=== PATIENT | male | born 1940 | race African-American/Black ===

== ENCOUNTER 2019-12-23 10:26 | Outpatient (REF) | payer MEDICARE, OTHER, SELFPAY ==
[2019-12-23 12:23] LABS: Glucose Urine UA NEG (NEG); Leukocyte Esterase Urine NEG (NEG); Nitrite Urine NEG (NEG); Urine Blood NEG (NEG); Urine Ketones NEG (NEG); Urine Protein NEG (NEG-TRACE)
[2019-12-23 12:26] LABS: Appearance Urine CLEAR; Color Urine YELLOW
[2019-12-23 12:40] LABS: Blood Urea Nitrogen 17 mg/dL (9-16); Estimated Glomerular Filt Rate 42; Glucose Fasting 207 mg/dL (60-99)
[2019-12-23 13:32] LABS: Estimated Average Glucose 160 mg/dL; Hemoglobin A1c % 7.2 %
== END 2019-12-23 10:27 | disposition home or self-care (01) ==
LOC: HO.LAB 10:26
PROVIDERS: PCP Internal Medicine; Visit Provider Internal Medicine Endocrinology, Diabetes & Metabolism
DX: I73.9 Peripheral vascular disease, unspecified (principal); E11.9 Type 2 diabetes mellitus without complications
CPT/HCPCS: 81003; 82565; 82947; 83036; 84520

== ENCOUNTER 2023-01-20 05:28 | Inpatient (IN) | payer MEDICARE, OTHER, SELFPAY ==
[2023-01-20] VITALS (11 sets, daily range): BP systolic 98–156; BP diastolic 50–88; PULSE 72–100; RESP 14–18; TEMP 36.5–37.1; O2SAT 97–100; BMI 24.8
--- NOTE | 2023-01-20 | ECG_ITS ---
Test Reason : SOB Blood Pressure : / mmHG Vent. Rate : 076 BPM Atrial Rate : 076 BPM P-R Int : 134 ms QRS Dur : 092 ms QT Int : 384 ms P-R-T Axes : 053 -08 162 degrees QTc Int : 432 ms Normal sinus rhythm Minimal voltage criteria for LVH, may be normal variant ( R in aVL ) T wave abnormality, consider inferolateral ischemia Abnormal ECG When compared with ECG of 11-FEB-2014 15:02, T wave inversion now evident in Inferior leads T wave inversion now evident in Anterolateral leads Heart rate has decreased Referred By: Generic ED Physician Electronically Signed By:SNEHA HARRINGTON MD
--- NOTE | ~2023-01-20 | XR_ITS ---
EXAMINATION: XR CHEST CLINICAL INFORMATION: Shortness of breath. COMPARISON: None available. TECHNIQUE: Frontal view of the chest was obtained. FINDINGS: No significant abnormality is noted involving the heart, lungs, mediastinum, bony thorax or soft tissues. XR/XR chest 1V IMPRESSION: No active cardiopulmonary disease.
[2023-01-20 05:56] LABS: MANUAL DIFF FLAG NO
[2023-01-20 05:58] LABS: Basophils Absolute Auto 0.1 X10*3/uL (0.0-0.2); Basophils Percent Auto 1.1 % (0-2); Eosinophils Absolute Auto 0.2 X10*3/uL (0.0-0.4); Hematocrit 21.1 % (42.0-52.0); Hemoglobin 7.2 g/dl (14.0-18.0); Imm Gran Abs Auto 0.02 X10*3/uL (0.00-0.03); Imm Gran Pct Auto 0.4 % (0.0-0.4); Lymphocytes Percent Auto 35.5 % (20-40); Mean Corpuscular HGB Conc 34.1 g/dl (31.0-36.0); Mean Corpuscular Hemoglobin 26.3 pg (27.0-33.0); Mean Platelet Volume 9.7 fL (9.4-12.4); Monocytes Absolute Auto 0.6 X10*3/uL (0.1-1.2); Monocytes Percent Auto 10.3 % (2-11); Neutrophils Absolute Auto 2.8 x10*3/uL (2.0-8.3); Neutrophils Percent Auto 49.7 % (45-73); Platelet Count 155 X10*3/uL (160-400); Red Blood Count 2.74 X10*6/uL (4.60-5.80); Red Cell Distribution Width 15.4 % (11.0-16.0); White Blood Count 5.6 X10*3/uL (4.8-10.8)
[2023-01-20 06:11] LABS: Alanine Aminotransferase 11 U/L (0-40); Alkaline Phosphatase 42 U/L (39-117); Anion Gap 13 (12-20); Aspartate Amino Transferase 21 U/L (5-37); Bilirubin Total 0.2 mg/dL (0.0-1.0); Blood Urea Nitrogen 23 mg/dL (9-16); Carbon Dioxide 19 mmol/L (22-29); Chloride 111 mmol/L (96-108); Creatinine Clr Calc Pharmacy 36.9; Estimated Glomerular Filt Rate 37; Glucose Random 89 mg/dL (60-115); Potassium 4.2 mmol/L (3.3-5.1); Prothrombin Time 12.1 SEC (11.1-13.3); Sodium 139 mmol/L (135-145); Total Protein 7.1 g/dL (6.5-8.0)
[2023-01-20 06:14] LABS: Partial Thromboplastin Time 25.9 SEC (26.0-36.4)
[2023-01-20 06:17] LABS: Troponin-I High Sensitivity 13.7 ng/L (<3.5-35.0)
--- OUTSIDE RECORDS SUMMARY | 2023-01-20 06:36 | XMS_ITS | Continuity of Care Document ---
Author Name Unknown Organization [facility] ter Address [address] [place] [id number] Care Team Providers Care Enterprise Architect Name Role Phone Fany Story MD Primary Care Phys[place] [facility] [place] - 04/15/[address] [address] Discharge Disposition: A-D/C Home Attending Physician: Sandie Castellanos MD Admitting Physician: Sandie Castellanos MD Referring Physician: Sandie Castellanos MD Allergies, Adverse Reactions, Alerts Substance Reaction Severity Status penicillin Active Medications Albuterol (Eqv-ProAir HFA) 90 mcg/inh inhalation aerosol INHALE 2 PUFFS INTO THE LUNGS EVERY 4 HOURS NEEDED FOR COUGH OR WHEEZING Start Date: 04/11/22 Status: Ordered allopurinol 100 mg oral tablet TAKE 1 TABLET BY MOUTH 2 TIMES DAILY Start Date: 04/11/22 Status: Ordered amLODIPine 5 mg oral tablet 5 mg, Tablet, By Mouth, 04/15/22 9:00:00 EST Start Date: 04/15/22 Stop Date: 04/15/22 Status: Completed amLODIPine 5 mg oral tablet TAKE 1 TABLET BY MOUTH DAILY Start Date: 04/11/22 Status: Ordered aspirin 81 mg oral delayed release tablet 81 mg, 1, tablet, By Mouth, Daily, # 90 tablet, Refills 0, Maintenance, 04/11/22 7:55:00 EST, Partial fill upon patient request if the prescription is for a schedule II opioid drug. Start Date: 04/11/22 Status: Ordered glipiZIDE 2.5 mg oral tablet, extended release TAKE 1 TABLET BY MOUTH DAILY Start Date: 04/11/22 Status: Ordered isosorbide mononitrate 60 mg oral tablet, extended release 1 tablet = 60 mg, By Mouth, Daily in AM, # 90 tablet, 0 Refills, Maintenance, 04/11/22 16:40:00 EST, ER Tablet, [facility], Partial fill upon patient request if the prescription is for a schedule II opioid drug., 185, cm, 04/11/22 8:02:0... Start Date: 04/11/22 Status: Ordered lisinopril 20 mg oral tablet 20 mg, 1, tablet, By Mouth, Daily, # 30 tablet, Refills 0, Maintenance, 04/14/22 8:32:00 EST, Partial fill upon patient request if the prescription is for a schedule II opioid drug. Start Date: 04/14/22 Status: Ordered prasugrel 10 mg oral tablet 1 tablet = 10 mg, By Mouth, Daily, # 90 tablet, 2 Refills, Maintenance, 04/15/22 9:52:00 EST, [facility], Partial fill upon patient request if the prescription is for a schedule II opioid drug., 185, cm, 04/15/22 8:06:00 EST, Height, 82,... 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 cancelled CT scan and any future TB clinic appts. letter sent to referring source. 2Pt started 600mg Rifampin therapy on 02/06/18. Vital Signs Most recent to oldest [Reference Range]: 1 2 3 Height 185 cm (04/15/22 8:06 AM) 185 cm (04/15/22 2:08 AM) 185 cm (04/14/22 7:31 PM) Weight 82.4 kg (04/14/22 4:00 PM) 85 kg (04/14/22 8:00 AM) 85 kg (04/14/22 8:00 AM) Oxygen Saturation [94-100 %] 98 % (04/15/22 8:06 AM) 100 % (04/15/22 2:08 AM) 100 % (04/14/22 7:31 PM) Pulse Rate [55-90 bpm] 86 bpm (04/15/22 8:06 AM) 80 bpm (04/15/22 2:08 AM) 76 bpm (04/14/22 7:31 PM) Body Mass Index [18.5-24.99 kg/m2] 24.08 kg/m2 (04/14/22 4:00 PM) 24.84 kg/m2 (04/14/22 8:00 AM) Blood Pressure [90-138/55-84 mm Hg] 123/59mm Hg (04/15/22 9:38 AM) 123/59mm Hg (04/15/22 8:06 AM) 122/59mm Hg (04/15/22 2:08 AM) Respiratory Rate [16-30 br/min] 18 br/min (04/15/22 8:06 AM) 20 br/min (04/15/22 2:08 AM) 20 br/min (04/14/22 7:31 PM) Temperature [96.8-100.4 DegF] 98.4 DegF (04/15/22 8:06 AM) 97.3 DegF (04/15/22 2:08 AM) 97.8 DegF (04/14/22 7:31 PM) Mode of Delivery (Oxygen) Room air (04/15/22 8:06 AM) Room air (04/15/22 2:08 AM) Room air (04/14/22 7:31 PM) Blood pressure sites Arm, right (04/15/22 8:06 AM) Arm, right (04/15/22 2:08 AM) Arm, left (04/14/22 7:31 PM) Temperature Route Oral (04/15/22 8:06 AM) Temporal (04/15/22 2:08 AM) Temporal (04/14/22 7:31 PM) Dry Weight 82 kg (04/14/22 4:00 PM) 85 kg (04/14/22 8:00 AM) 85 kg (04/14/22 8:00 AM) Weight Obtained Via Bed scale (04/14/22 4:00 PM) Standing scale (04/14/22 8:00 AM) Standing scale (04/14/22 8:00 AM) Dry Weight Obtained Via Standing scale (04/14/22 8:00 AM) Standing scale (04/14/22 8:00 AM) Sensory deficits None (04/14/22 4:00 PM) Note * Event Display: Hemodynamic Procedure Report Authored Date: * Riccardo Garza RN: PERFORM Event Display: Discharge/Transfer Note Hospital Authored Date: [id number] Nursing Discharge Note Entered On: 04/15/2022 14:49 EST Performed On: 04/15/2022 14:30 EST by Riccardo Garza RN Nursing Discharge Note 2 Discharge Time : 04/15/2022 14:30 EST Discharge Level of Care at Discharge : Home/[facility] Patient Left Unit Via : Wheelchair Patient Accompanied Off Unit with : Other: nursing staff DC Instructions Provided & Signed by Pt : Yes Patient Understands D/C Instructions : Yes Patient Instructions Discharge Signed : Yes Discharge Comments : see discharge instructions; pt has script for blood draw 04/17, see hospital discharge summary - pt to see PMD this week(will phone for nai't) Did Pt have Specialty Bed or Wound Vac : No Riccardo Garza RN - 04/15/2022 14:47 EST * Hermes Kinney MD: PERFORM Event Display: Discharge/Transfer Note Hospital Authored Date: [id number] Patient: ??CLAUDETTE HOLLINS ? Age:??81 Years?Sex:??Male?:??1940?? Patient Information Discharge Location: Primary Care Physician: Fany Story MD Admit Date/Time: 04/14/22 07:26 Discharge Disposition Discharge Disposition: ?? Discharge Diagnosis ??s/p complex PCI of LAD _ Discharge Medications Albuterol (Albuterol (Eqv-ProAir HFA) 90 mcg/inh inhalation aerosol)?INHALE 2 PUFFS INTO THE LUNGS EVERY 4 HOURS NEEDED FOR COUGH OR WHEEZING Allopurinol (allopurinol 100 mg oral tablet)?TAKE 1 TABLET BY MOUTH 2 TIMES DAILY Amlodipine (amLODIPine 5 mg oral tablet)?TAKE 1 TABLET BY MOUTH DAILY Aspirin (aspirin 81 mg oral delayed release tablet)?81?Milligram?1?tablet?By Mouth?Daily GlipiZIDE (glipiZIDE 2.5 mg oral tablet, extended release)?TAKE 1 TABLET BY MOUTH DAILY Isosorbide Mononitrate (isosorbide mononitrate 60 mg oral tablet, extended release)?1?tab(s)?60?Milligram?By Mouth?Daily in AM Lisinopril (lisinopril 20 mg oral tablet)?20?Milligram?1?tablet?By Mouth?Daily prasugrel (prasugrel 10 mg oral tablet)?1?tab(s)?10?Milligram?By Mouth?Daily Pravastatin (pravastatin 20 mg oral tablet)?TAKE 1 TABLET BY MOUTH DAILY ?? Medications Started None - resume Effient Medications Discontinued NOne Doses Changed None PCP Follow-Up/Heads-Up NEEDS FOLLOW UP WITH CARDIOLOGY (optimization of medical therapy for heart failure) NEEDS FOLLOW UP WITH NEPHROLOGY - ADDRESS LOW HEMOGLOBIN (needs iron studies +/- Epo) NEEDS FOLLOW UP WITH PULMONARY MEDICINE - history of latent TB Hospital Course Patient presented for definite PCI of LAD. This was done from [facility]. Uncomplicated procedure. OVernight, no issues. Groin site intact. He will be discharged today and needs very close follow up for dyspnea (which has been ongoing for > 1 month) Objective Vital Signs?? Temperature: 98.4 DegF (04/15/22 08:06:00) Temperature Route: Oral (04/15/22 08:06:00) Pulse Rate: 86 bpm (04/15/22 08:06:00) Respiratory Rate: 18 br/min (04/15/22 08:06:00) Systolic Blood Pressure: 123 mm Hg (04/15/22 09:38:00) Diastolic Blood Pressure: 59 mm Hg (04/15/22 09:38:00) Blood pressure sites: Arm, right (04/15/22 08:06:00) Mean Arterial Pressure: 80 mm Hg (04/15/22 08:06:00) Pulse Pressure: 64 mm Hg (04/15/22 08:06:00) Oxygen Saturation: 98 % (04/15/22 08:06:00) Mode of Delivery (Oxygen): Room air (04/15/22 08:06:00) Early Warning Score: 1 (04/15/22 10:00:52) Early Warning Score: 0 (04/15/22 10:00:52) ? . Physical Exam General:??No apparent distress. Well nourished, appears stated age. Able to participate in a conversation. SKIN: No rash or lesions. HEENT:??NCAT, EOMI, Sclera are anicteric. Moist oral mucosa. Neck:??Supple, No lymphadenopathy. No JVD. Carotid pulses normal in intensity and volume. No carotid bruits. Cardiac:??PMI ND. Regular rate and rhythm, + S1, S2. No appreciable murmurs. No gallop.?? Respiratory:??Clear to auscultation bilaterally without wheezes, rales or rhonchi. Abdomen:??Soft, nontender, non-distended, no abnormal BS, no HSM. Rectal exam deferred. Extremities:??No lower extremity edema noted.??LE pulses are palpable. Neurology:??No focal?? neurological deficits.?? Psych:??Appropriate affect. Consultants None during the hospital stay Pending Results BMP order was given to the patient to be done on 04/17 Follow-Up Appointments Added Follow Up ?Time Frame ?Comments Call for Cardiac Rehab appointment at [facility] --[phone] Post Discharge Care Discharge ?When Unit Discharge Criteria Met, ??04/15/22 9:54:00 EST Home Health Face to Face ^HomeHealthFTF Results Discharge Labs BLOOD BANK Blood Type A Positive ()?? 04/14/2022 08:21 Antibody Screen Negative ()?? 04/14/2022 08:21 ?? BLOOD COUNT & DIFF WBC 6.5 k/mm3 ()?? 04/15/2022 06:46 RBC 3.35 m/mm3 (Low)?? 04/15/2022 06:46 Hgb 8.9 Gm/dL (Low)?? 04/15/2022 06:46 Hct 26.2 % (Low)?? 04/15/2022 06:46 MCV 78.2 femtoliters (Low)?? 04/15/2022 06:46 MCH 26.6 pg (Low)?? 04/15/2022 06:46 MCHC 34.0 g/dL ()?? 04/15/2022 06:46 Platelet Count 154 k/mm3 ()?? 04/15/2022 06:46 RDW-SD 44.4 femtoliters ()?? 04/15/2022 06:46 MPV 10.5 femtoliters ()?? 04/15/2022 06:46 Nucleated RBC (Automated) 0.0 #/100 WBC'S ()?? 04/15/2022 06:46 Abs. NRBC 0.0 k/mm3 ()?? 04/15/2022 06:46 ?? CHEM GENERAL Sodium 135 mmol/L ()?? 04/15/2022 06:46 Potassium 4.7 mmol/L ()?? 04/15/2022 06:46 Chloride 101 mmol/L ()?? 04/15/2022 06:46 Bicarbonate Level 23 mmol/L ()?? 04/15/2022 06:46 Anion Gap 11 ()?? 04/15/2022 06:46 Glucose, POC 172 mg/dL (High)?? 04/14/2022 08:19 BUN 18 mg/dL ()?? 04/15/2022 06:46 Creatinine-Blood 1.7 mg/dL (High)?? 04/15/2022 06:46 Estimated GFR Creatinine 41 ML/MIN/1.73 M2 ()?? 04/15/2022 06:46 ? _ minutes spent on discharge * Riccardo Garza RN: PERFORM Event Display: Patient Education/Instruction Authored Date: [id number] Inpatient Adult Discharge Instructions [address] [address] Name: CLAUDETTE HOLLINS : 1940 Visit: 04/14/2022 07:26:00 Current Date: 04/15/2022 13:13 Account: [id number] Inpatient Adult Discharge Instructions We would like to thank you for allowing us to assist you with your healthcare needs. The following includes patient education materials and information regarding your injury/illness. Our entire staffstrives to provide an excellent experience for our patients and their families. PLEASE ENSURE YOU FOLLOW-UP PER THE INSTRUCTIONS BELOW! ?? YOUR OPINION IS IMPORTANT TO US! Please complete the survey you may receive by mail or email. Your feedback will be used to make improvements to the healthcare experiences of our patients and their families. Surveys are administered by [employer]. ?? If further treatment with your primary care physician or another doctor is recommended, it is important for you to keep the appointment. Call your primary care physician or return to the Emergency Department immediately if your condition worsens, fails to improve, or new symptoms develop. If you need to find a doctor, you can call [facility] [employer] for a referral at [phone] or toll free at [phone] or log in to [email or web address].. ?? You can view and manage your care through the patient portal or by using a health care nai of your choosing. [employer] is a website that allows you to securely view your medical information including your hospital discharge summary, office visit summaries, medications and follow-up visits. You can also request appointments, renew medications, and request access to your medical information using a health care nai of your choosing, or just ask a question. You can enroll at [email or web address] or register during your next office visit. You have been discharged from [facility], Patient Care Unit: M7. If you have any questions regarding these instructions after you leave, please call us and we will be happy to assist you. [facility] Your Care Team Attending Physician Sandie Castellanos MD Discharging Providers Hermes Kinney MD Reason for Admission Cath/PCI Tests Performed Below is a partial list of the tests performed during your hospitalization. You may have had other tests and procedures not included in this list. Please discuss all test results with your provider. BUN CBC Creatinine GLUCOSE POC Lytes Type and Screen Primary Care Provider Porsha CARRERA, Fany Advance Directive Health Care Proxy on File No Discharge Vitals Temperature: 98.4 DegF Height: 185 cm Pulse Rate: 86 bpm Weight: 82.4 kg Respiratory Rate: 18 br/min Body Mass Index: 24.08 kg/m2 Systolic Blood Pressure: 123 mm Hg Body surface area: 2.06 Diastolic Blood Pressure: 59 mm Hg ?? Oxygen Saturation: 98 % ?? Studies Pending All tests and labs ordered during this hospital stay have been completed unless listed below. Please discuss all pending results with your provider listed above in these instructions. ?? No incomplete studies found What to do next Instructions From Your Doctor Discharge Orders You Need to Schedule the Following Appointments Follow Up with??Call for Cardiac Rehab appointment at [facility] --[phone] When?? Where: Discharge Medications CLAUDETTE HOLLINS :1940 Visit Date:04/14/2022 Medications: Please continue your medications until treatment is completed or stopped by your provider. Medications not listed below should be discontinued. Discuss any questions related to medications with your provider. What How Much When Instructions Next Dose Unchanged Albuterol (Albuterol (Eqv- ProAir HFA) 90 mcg/ inh inhalation aerosol) INHALE 2 PUFFS INTO THE LUNGS EVERY 4 HOURS NEEDED FOR COUGH OR WHEEZING ?? today 04/15 Unchanged Allopurinol (allopurinol 100 mg oral tablet) TAKE 1 TABLET BY MOUTH 2 TIMES DAILY ?? tonight 2 Unchanged Amlodipine (amLODIPine 5 mg oral tablet) TAKE 1 TABLET BY MOUTH DAILY ?? tomorrow 2 Unchanged Aspirin (aspirin 81 mg oral delayed release tablet) 1 tab(s) Oral Daily tomorrow 2 Unchanged GlipiZIDE (glipiZIDE 2.5 mg oral tablet, extended release) TAKE 1 TABLET BY MOUTH DAILY ?? tomorrow 2 Unchanged Isosorbide Mononitrate (isosorbide mononitrate 60 mg oral tablet, extended release) 1 tab(s) Oral Daily in the morning tomorrow 2 Unchanged Lisinopril (lisinopril 20 mg oral tablet) 1 tab(s) Oral Daily tomorrow 2 Unchanged prasugrel (prasugrel 10 mg oral tablet) 1 tab(s) Oral Daily Pickup at [facility] tomorrow 04/16 Unchanged Pravastatin (pravastatin 20 mg oral tablet) TAKE 1 TABLET BY MOUTH DAILY ?? at bedtime tonight 04/15 Pharmacy Information [facility]: [address] [place], [place] [id number] [phone] Test Results Below is a partial list of the most recent Laboratory test results done prior to this discharge. You may have had other tests and procedures not included in this list. Please discuss all test resultswith your provider. BUN (04/15/2022) ???BUN - 18 mg/dL CBC (04/15/2022) ???WBC - 6.5 k/mm3???RBC - 3.35 m/mm3???Hgb - 8.9 Gm/dL???Hct - 26.2 %???MCV - 78.2 femtoliters???MCH - 26.6 pg???MCHC - 34.0 g/dL???Platelet Count - 154 k/mm3???RDW-SD - 44.4 femtoliters???MPV - 10.5 femtoliters???Nucleated RBC (Automated) - 0.0 #/100 WBC'S???Abs. NRBC - 0.0 k/mm3 Creatinine (04/15/2022) ???Creatinine-Blood - 1.7 mg/dL???Estimated GFR Creatinine - 41 ML/MIN/1.73 M2 GLUCOSE POC (04/14/2022) ???Glucose, POC - 172 mg/dL Lytes (04/15/2022) ???Sodium - 135 mmol/L???Potassium - 4.7 mmol/L???Chloride - 101 mmol/L???Bicarbonate Level - 23 mmol/L???Anion Gap - 11 Type and Screen (04/14/2022) ???Blood Type - A Positive???Antibody Screen - Negative Allergies (NKA means No Known Allergies) penicillin Problems Active Problems??(2) Abnormal finding on chest xray?? Positive QuantiFERON-TB Gold test?? Education Materials Below is the list of Educational Leaflet Providered with your Discharge Instructions. Aspirin Delayed Release Oral Tablet?? Prasugrel Oral Tablet?? Diet-Cardiac?? Risk Factors for Heart Disease?? Discharge Instructions for Cardiac Catheterization?? Valuables and Belongings I fully understand and agree that [facility] accepts no responsibility for all my personal property including clothing, toilet articles, radios, jewelry, dentures, hearing aids, rings, money, or any other property that is in my possession or is brought to me after admission. I understand certain valuables may be placed in a hospital safe for a short period of time. I understand that the hospital is not liable for loss or damage due to accident, fire, or other natural occurrence while said property is in the safe. I accept full responsibility for any personal property that I keep with me, and will not hold the hospital responsible in case of loss or disappearance. I acknowledge that i have been encouraged to send valuables and belongings home. ?? Review of Valuable and Belonging List: Other: no belongings came up with patient to M7 Date for Pt to Sign Valuables/Belongings: 04/14/22 16:37:00 ?? Other Discharge Information ? Pulmonary Rehab Status?? Pulmonary Rehab Discharge Status?? Respiratory Rate: 18 br/min ? Cardiac Rehab Assessment?? Cardiac Rehab Inpatient Assessment?? Comments-Education: POST PCI recovery process Comments-Smoking Cessation: NA-quit 1998 Comments-Exercise Activity: INCREASE LESLY Comments-Nutrition: LOW FAT, LOW SUGAR Patient attending Phase II: Yes Phase II Site of Care: [address] [id number] [phone] Common Emergency Awareness Tips IS IT A STROKE? Act FAST and Check for these signs: FACE Does the face look uneven? ARM Does one arm drift down? SPEECH Does their speech sound strange? TIME Call at any sign of stroke ?? Heart Attack Signs Chest discomfort: Most heart attacks involve discomfort in the center of the chest and lasts more than a few minutes, or goes away and comes back. It can feel like uncomfortable pressure, squeezing, fullness or pain. Discomfort in upper body: Symptoms can include pain or discomfort in one or both arms, back, neck, jaw or stomach. Shortness of breath: With or without discomfort. Other signs: Breaking out in a cold sweat, nausea, or lightheaded. Remember, MINUTES DO MATTER. If you experience any of these heart attack warning signs, call to get immediate medical attention! ?? Smoking can increase your chances of developing chronic health problems and can cause harmful effects to other family members in your house. If you smoke, you are strongly encouraged to quit. Please call [facility] [employer] at [phone] or [phone] ([phone]) or log in to [email or web address] for referrals to smoking cessation programs. ?? The National Suicide Prevention Hotline is available 25/09 if you or someone you know needs to find a reason to keep living. By calling 9-570-976-QuVIS (3498) you'll be connected to a skilled, trained counselor at a crisis center in your area. INPATIENT DISCHARGE INSTRUCTIONS SIGNATURE PAGE CLAUDETTE HOLLINS Location:[facility] Registration Date and Time:04/14/2022 07:26 [facility] Primary Care Physician: Porsha CARRERA, ArpitaKeshav, I CLAUDETTE HOLLINS, have received the above patient education materials/instructions and have verbalized understanding. If ambulance or transport services are being used I further acknowledge beinggiven a choice of service. ?? If you need to contact me, please call me at this number: . Patient/Design Inserter Name: Patient/Design Inserter Signature: Relationship to Patient: Witness Name/Signature: Date: * Riccardo Garza RN: PERFORM Event Display: Patient Education Leaflets Authored Date: [id number] Aspirin Delayed Release Oral Tablet ?? 48805-9 Aspirin Delayed Release Oral Tablet Brands: Aspir-Low, Lisa Aspirin, Ecotrin, Miniprin, [place] Aspirin Uses This medicine is used for the following purposes: ??? fever ??? inflammatory disease ??? pain ??? prevent blood clots ??? prevent stroke ??? prevent heart attack ?? Instructions Swallow the medicine without crushing or chewing it. Sit or stand upright for 10 minutes after taking the medicine. Do not lie down. Swallow with a full glass (8 oz) of water unless your doctor gives you different instructions. You may take with food to prevent stomach upset. Keep the medicine at room temperature. Avoid heat and direct light. If you are using this medicine regularly, it is important to take each dose of medicine on time. Keep taking the medicine even if you feel well. If you forget to take a dose on time, take it as soon as you remember. If it is almost time for thenext dose, do not take the missed dose. Return to your normal schedule. Do not take 2 doses at one time. Drug interactions can change how medicines work or increase risk for side effects. Tell your healthcare providers about all medicines taken. Include prescription and jxlc-kxa-[id number] medicines, vitamins, and herbal medicines. Speak with your doctor or pharmacist before starting or stopping any medicine. Tell your doctor if symptoms do not get better or if they get worse. Talk to your doctor before taking other medicines, including aspirins and ibuprofen containing products. Speak to your doctor about which medicines are safe to use while you are on this medicine. ?? Cautions IMPORTANT: Children and teenagers should not use medications containing aspirin for cold and flu symptoms or chickenpox. Tell your doctor and pharmacist if you ever had an allergic reaction to a medicine. There is an increased risk of bleeding while on this medicine, please tell your doctor or nurse if you notice any excessive bleeding or bruising. Do not use the medication any more than instructed. If you drink more than a few alcoholic beverages each day, ask your doctor whether you should be onthis medicine. Avoid smoking while on this medicine. Smoking may increase your risk for stomach bleeding. Contact your doctor if you notice a change in the amount or darkening of your urine. Tell the doctor or pharmacist if you are , planning to be , or . ?? Side Effects The following is a list of some common side effects from this medicine. Please speak with your doctor about what you should do if you experience these or other side effects. ??? stomach upset or abdominal pain If you have any of the following side effects, you may be getting too much medicine. Please contactyour doctor to let them know about these side effects. ??? ringing in the ears Call your doctor or get medical help right away if you notice any of these more serious side effects: ??? severe or persistent abdominal pain ??? increased risk of bleeding ??? bleeding that is severe or takes longer to stop ??? coughing up blood or vomit that looks like coffee grounds ??? fever ??? swelling in the neck or throat ??? shortness of breath ??? dark, tarry stool ??? urinating less often A few people may have an allergic reaction to this medicine. Symptoms can include difficulty breathing, skin rash, itching, swelling, or severe dizziness. If you notice any of these symptoms, seek medical help quickly. ?? Extra Please speak with your doctor, nurse, or pharmacist if you have any questions about this medicine. ?? [email or web address] IMPORTANT NOTE: This document tells you briefly how to take your medicine, but it does not tell youall there is to know about it. Your doctor or pharmacist may give you other documents about your medicine. Please talk to them if you have any questions. Always follow their advice. There is a more complete description of this medicine available in [place]. Scan this code on your smartphone or tablet or use the web address below. You can also ask your pharmacist for a printout. If you have any questions, please ask your pharmacist. The display and use of this drug information is subject to Terms of Use. Copyright(c) 2021 [employer]. ?? [employer]. All rights reserved. This information is not intended as a substitute for professional medical care. Always follow your healthcare professional's instructions. ?? * Riccardo Garza RN: PERFORM Event Display: Patient Education Leaflets Authored Date: [id number] Prasugrel Oral Tablet ?? [id number] Prasugrel Oral Tablet Brands: Effient Uses This medicine is used for the following purposes: ??? prevent blood clots ??? prevent heart attack ?? Instructions Swallow the medicine without crushing or chewing it. This medicine may be taken with or without food. It is very important that you take the medicine at about the same time every day. It will work bestif you do this. Store at room temperature away from heat, light, and moisture. Do not keep in the bathroom. If you forget to take a dose on time, take it as soon as you remember. If it is almost time for thenext dose, do not take the missed dose. Return to your normal schedule. Do not take 2 doses at one time. Drug interactions can change how medicines work or increase risk for side effects. Tell your healthcare providers about all medicines taken. Include prescription and [id number] medicines, vitamins, and herbal medicines. Speak with your doctor or pharmacist before starting or stopping any medicine. Talk to your doctor before taking other medicines, including aspirins and ibuprofen containing products. Speak to your doctor about which medicines are safe to use while you are on this medicine. Keep all appointments for medical exams and tests while on this medicine. Do not take the medicine more than once during 24 hours. ?? Cautions This medicine may cause serious bleeding problems in patients taking blood thinner medications. Follow your doctor's instructions carefully to monitor your blood lab tests if you are on blood thinners. This medicine may cause serious bleeding from the stomach or bowels. Stop this medicine and call your doctor immediately if you see any signs of bleeding. Bleeding can cause pain in the stomach, vomiting up liquid that looks like coffee grounds, and red or dark tarry stools. There is an increased risk of bleeding while on this medicine, please tell your doctor or nurse if you notice any excessive bleeding or bruising. Do not use the medication any more than instructed. Please check with your doctor before drinking alcohol while on this medicine. Contact your doctor if you notice a change in the amount or darkening of your urine. Tell the doctor or pharmacist if you are , planning to be , or . Do not share this medicine with anyone who has not been prescribed this medicine. Some patients have serious side effects from this medicine. Ask your pharmacist to show you the information from the Food and Drug Administration (FDA) and discuss it with you. Always refill this medicine before it runs out. ?? Side Effects The following is a list of some common side effects from this medicine. Please speak with your doctor about what you should do if you experience these or other side effects. ??? nosebleeds ??? headaches ??? nausea ??? stomach upset or abdominal pain Call your doctor or get medical help right away if you notice any of these more serious side effects: ??? bleeding or bruising ??? chest pain ??? coughing up blood or vomit that looks like coffee grounds ??? fainting ??? severe or persistent headache ??? shortness of breath ??? bloody or dark, tarry stools ??? symptoms of stroke (such as one-sided weakness, slurred speech, confusion) ??? unusual or unexplained tiredness or weakness ??? urinating less often ??? difficulty or discomfort urinating ??? blood in urine ??? dark urine ??? blurring or changes of vision A few people may have an allergic reaction to this medicine. Symptoms can include difficulty breathing, skin rash, itching, swelling, or severe dizziness. If you notice any of these symptoms, seek medical help quickly. ?? Extra Please speak with your doctor, nurse, or pharmacist if you have any questions about this medicine. ?? [email or web address] IMPORTANT NOTE: This document tells you briefly how to take your medicine, but it does not tell youall there is to know about it. Your doctor or pharmacist may give you other documents about your medicine. Please talk to them if you have any questions. Always follow their advice. There is a more complete description of this medicine available in [place]. Scan this code on your smartphone or tablet or use the web address below. You can also ask your pharmacist for a printout. If you have any questions, please ask your pharmacist. The display and use of this drug information is subject to Terms of Use. Copyright(c) 2021 [employer]. ?? 7879-9265 [employer]. All rights reserved. This information is not intended as a substitute for professional medical care. Always follow your healthcare professional's instructions. ?? * Riccardo Garza RN: PERFORM Event Display: Patient Education Leaflets Authored Date: Diet-Cardiac ?? 103 Diet Instructions Cardiac Diet: [? ] 200-300mg cholesterol, 2gram sodium? [? ] 1800 nany, 200-300mg cholesterol, 2gram sodium ?? Sodium Conversion 2gm sodium = 2000mg sodium ? Cardiac catheterization study * Event Display: Cardiac Leisure Studies Professor Report Authored Date: Cardiac Diagnostic + PCI Report Demographics Patient Name GURVINDER WILKINS Gender Male Corporate Race Black Facility N [id number] Room Number B210 Height 72.83 inches Date of 1940 Weight 187.39 pounds Age 81 year(s) BSA 2.09 m2 Accession Number [id number] BMI 24.84 kg/m2 Referring Physician Porsha CARRERA Hyoungsup Date of Study 04/14/2022 Wicho Castellanos MD Performing Physician Sandie Castellanos MD Fellow Hermes Kinney Interventional Physician Sandie Castellanos MD Procedure Procedure Type Diagnostic procedure:Left Heart Catheterization PCI procedure:Coronary IVUS, Mechanical Atherectomy with Drug Eluting Stent Miscellaneous:ACT , Vascular Closure Device, Temporary Pacemaker Insertion with Fluro, ULTRASOUND GUIDANCE [facility] Diagnostic Catheterization Status:Elective [facility] Interventional Catheterization Status:Elective Indications Indications: CAD and Planned follow-up study for prior clinical condition or intervention.. Clinical History Admission Medications + +------+-------+ + + +---------+ !Medication !Dosage!Times !Last !Last !Administered !Comments ! ! ! !Per Day!Delivery !Delivery ! ! ! ! ! ! !Date !Time ! ! ! + +------+-------+ + + +---------+ !Aspirin (any)!81 mg !x 1 !04/13/2022 !00:00 !Yes ! ! + +------+-------+ + + +---------+ !Prasugrel !10 mg !x 1 !04/13/2022 !00:00 !Yes ! ! + +------+-------+ + + +---------+ Clinical Evaluation Leading to Procedure - The patient's CAD presentation was assessed as: Stable angina. - The patient's anginal syndrome during the past two weeks was assessed as: Class III according to the [place] Cardiovascular Society Classification System (CCS). Anti-anginal medications were prescribed during the past two weeks. The medications are: Ca channel Blockers and Long Acting Nitrates. - The patient was newly diagnosed with a heart failure condition. Heart failure type: Systolic. 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 ACC Risk Factors The patient risk factors include:peripheral arterial disease, obesity, physical activity, treated and uncontrolled hypercholesterolemia, treated and uncontrolled hypertension, diabetes mellitus, chronic lung disease, last creatinine: 1.7 mg/dl, creatinine clearance: 41.67 ml/min, dyslipidemia, renal failure, former tobacco use and previous femoral procedure. Additional Clinical History:81-year-old male with past medical history significant for peripheral vascular disease, diabetes mellitus type 2, hypertension, hyperlipidemia, chronic kidney disease stage III with baseline creatinine of 1.6-1.7, asthma, gout and sleep apnea who was having intermittent angina. Eventually underwent an echocardiogram which showed global hypokinesis with ejection fraction of 30 to 35%. This was followed with [facility] which showed a significant lesion of the LAD. Heavily calcified in appearance. He has been on amlodipine and isosorbide mononitrate and despite of that, patient has been experiencing ongoing intermittent angina. Today, we will proceed with def PCI of LAD. Procedure Data Procedure Date Date: 04/14/2022Start: 13:16End: 14:43 The procedure was explained in detail to the patient. Risks, complications and alternative treatments were reviewed. Written consent was obtained. Entry Locations - Retrograde Percutaneous access was performed through the Right Femoral artery (Primary location). A 4 Fr sheath was inserted. This was exchanged for a 7 Fr sheath. Hemostasis was successfully obtained using Perclose ProGlide. Procedure Medications - Oxygen NC 2 l/min. - Versed (Midazolam) I.V. 1 mg. - Fentanyl I.V. 50 mcg. - Lidocaine 2% 3 ml. - Prasugrel (Effient) P.O. 10 mg. - Versed (Midazolam) I.V. 1 mg. - Fentanyl I.V. 50 mcg. - Heparin 9000 units. - Heparin I.V. 3000 units. - Nitroglycerin I.C. 200 mcg. - Versed (Midazolam) I.V. 1 mg. - Fentanyl I.V. 50 mcg. - Nitroglycerin I.C. 200 mcg. - Versed (Midazolam) I.V. 1 mg. - Fentanyl I.V. 50 mcg. Sedation: My intra-service moderate sedation time was: from 1242 to 1445. Refer to procedural log for detailed chronological information. Contrast Material - Omnipaque 100 ml Diagnostic Catheters - A7F XB 3.5 VISTA BRITETIP GUIDING CATHETERwas used for: PCI. - A1.2Zq571wv ASAFifty100 CARAVEL MICROCATHETERwas used for: Wire support. - A1.0Ft491jl ASAHI CARAVEL MICROCATHETERwas used for: Wire support. - A3.9Bx121en OPTICROSS 6 HD CORONARY IMAGING CATHETERwas used for: IVUS. - A3.7Tp532ua OPTICROSS 6 HD CORONARY IMAGING CATHETERwas used for: IVUS. Fluoroscopy Time: PCI: 26:18 minutes. Total: 26:18 minutes. Fluoroscopy Dose: PCI: 1848 mGy. Total: 1848 mGy. Dose Area Product:PCI: 960566 mGy/cm2. Total: 949854 mGy/cm2. Dose Area Product:PCI: 12799 ??Gy/m2. Total: 41181 ??Gy/m2. Procedure Narrative Patient is seen and examined in the Leisure Studies Professor. The description of the procedure and the risk and benefit including bleeding, radial spasm, contrast-induced nephropathy, [place], stroke, , angioplasty related dissection or perforation were mentioned to the patient. The patient understood and agreed to proceed with the procedure. Right common femoral artery access was obtained under ultrasonographic guidance and a 7 Croat[place] sheath was placed. The diagnostic angiogram was performed using XB LAD 3.5 guide catheter. Additional heparin was given and ACT was achieved more than 250-second. The lesion was crossed with a GoCommer flex wire with the help of Caravel microcatheter. Orbital atherectomy was performed. The lesion was predilated with 2.5 mm X 15 mm SMI compliant balloon. We performed IVUS for stent sizing. We placed a 3.25 mm X 33 mm Xience erickson point ESTHER distally and 3.5 mm X 23 mm Xience erickson point ESTHER proximally in the overlapping fashion. A run-through wire was used to protect the D2. We performed IVUS after stent placement which showed small mall apposition in the mid part of the distal stent which we postdilated with 3.25 mm X 20 mm NC balloon. Angiographically although we were suspicious whether there is an edge dissection distally or not but the IVUS images did not show any obvious dissection so we avoided any further stent placement. At the end of the procedure, the sheath was removed and a Perclose device was deployed. Angiographic Findings Cardiac Arteries and Lesion Findings LMCA: Mild diffuse disease (<30%). LAD: Lesion in Mid LAD: Proximal subsection.60% stenosis 30 mm length.The lesion was heavily calcified. LCx: Moderate diffuse disease. RCA: Angiography not performed considering recent angiogram. Hemodynamics Condition: Rest O2 Consumption: Estimated: 248.51Heart Rate: 82 bpm Shunts Oxygen Values O2 Capacity 126.48 O2 Consumption 248.51 Interventional Procedure Cardiac lesions LAD: Lesion in Mid LAD: Proximal subsection.60% stenosis 30 mm length.The lesion was heavily calcified. Devices used - VIPERWIRE ADVANCED w/FLEX TIP GUIDEWIRE. Number of passes: 1. - 1.25mm DIAMONDBACK 360 CORONARY ATHERECTOMY. Number of passes: 8. - .014 x190 STR ASAHI ROXANA BLUE GUIDEWIRE. Number of passes: 1. - 2.7qeg06hq RX EUPHORA BALLOON. Diameter: 2.5 mm. Length: 15 mm. 5 inflation(s) to a max pressure of: 14 norm. - 3.28dno57tj RX XIENCE SKYPOINT ESTHER. Diameter: 3.25 mm. Length: 33 mm. 1 inflation(s) to a max pressure of: 12 norm. - 3.47zhs54vb RX XIENCE SKYPOINT ESTHER. Diameter: 3.5 mm. Length: 23 mm. 2 inflation(s) to a max pressure of: 14 norm. - 3.45ozp40dy RX NC EUPHORA BALLOON. Diameter: 3.25 mm. Length: 20 mm. 3 inflation(s) to a max pressure of: 15 norm. Conclusions Diagnostic Summary 81-year-old gentleman with history of peripheral vascular disease, diabetes mellitus type 2, hypertension hyperlipidemia and chronic kidney disease who had recent angiogram showing heavily calcified mid LAD lesion with IFR of 0.47. Diagnostic angiogram showed mild diffuse disease of the LMCA, 60% heavily calcified stenosis in the mid LAD which was IFR positive on recent angiogram and moderate diffuse disease of the LCx. Proceed with intervention of the mid LAD lesion. Diagnostic Recommendations Proceed with intervention of the mid LAD lesion. Interventional Summary Mid LAD: Orbital atherectomy was performed using CSI atherectomy catheter. The lesion was predilated with 2.5 mm X50 millimeter semicompliant balloon. IVUS was performed. A 3.25 mm X 33 mm Xience erickson point ESTHER was placed distally and a 3.5 mm X 23 mm Xience erickson point ESTHER was placed proximally in overlapping fashion. IVUS performed which showed malposition in the center part of the distal stent. The stent was postdilated with 3.25 mm X 20 mm NC balloon. Interventional Recommendations Continue aspirin 81 mg p.o. indefinitely and prasugrel 10 mg p.o. daily 1 year postintervention. Guideline directed medical management for coronary artery disease and heart failure with reduced ejection fraction. Repeat echocardiogram in 6 to 8 weeks. Repeat renal function in 72 hours. Follow-up with Dr. Groves at the office in 6 weeks. Signatures VA LV function assessed as:Abnormal. Ejection Fraction - Method: Echocardiography. EF%: 30. * Event Display: Cardiac Leisure Studies Professor Report Authored Date: EKG study * Event Display: ECG 12-Lead Authored Date: Please click on pdf link to open report * Event Display: ECG 12-Lead Authored Date: Ventricular Rate: 76 BPM Atrial Rate: 76 BPM P-R Interval: 144 ms QRS Duration: 102 ms Q-T Interval: 392 ms QTC Calculation(Bazett): 441 ms P Dowell: 66 degrees R Dowell: -18 degrees T Dowell: -55 degrees Normal sinus rhythm Left ventricular hypertrophy with repolarization abnormality ( R in aVL , Sokolow-Mason ) Cannot rule out Septal infarct (cited on or before 14-APR-2022) Abnormal ECG When compared with ECG of 14-APR-2022 08:51, Serial changes of Septal infarct Present Confirmed by MIMA ASHTON MD ([id number]) on 04/15/2022 7:17:49 AM [place]: MIMA ASHTON MD * Event Display: ECG 12-Lead Authored Date: Please click on pdf link to open report * Event Display: ECG 12-Lead Authored Date: Ventricular Rate: 74 BPM Atrial Rate: 74 BPM P-R Interval: 142 ms QRS Duration: 94 ms Q-T Interval: 402 ms QTC Calculation(Bazett): 446 ms P Dowell: 47 degrees R Dowell: -16 degrees T Dowell: 172 degrees Normal sinus rhythm Left ventricular hypertrophy with repolarization abnormality Poor R wave progression in V1-V3 may be normal variant or due to anteroseptal infarct or misplaced leads Abnormal ECG When compared with ECG of 11-APR-2022 14:05, Premature atrial complexes are no longer Present Confirmed by VIRGIL JAEGER ([id number]) on 04/14/2022 9:14:45 AM [place]: VIRGIL JAEGER [facility] Progress note * Riccardo Garza RN: PERFORM, SIGN, VERIFY, MODIFY, SIGN Event Display: Progress [facility] Authored Date: Patient: CLAUDETTE HOLLINS [facility]: [id number] Age: 81 years Sex: Male : 1940 Associated Diagnoses: None Author: Riccardo Garza RN Findings Problem Related to Alteration in Cardiac Function (new) : Alteration in Cardiac Function/new 04/15/2022 9:00 EST Alteration in Cardiac Status Related to Cardiac Procedure Goals & Outcomes, Cardiac Status Pt will resume/maintain adequate cardiac output, Pt will resume/maintain adequate hemodynamic status, Pt will resume/maintain adequate respiratory function, Pt will resume/maintain intact neuro function, Pt will maintain adequate GI/ function appropriate for pt, Pt will maintain adequate nutrition status, Pt/caregiver will state understanding of diagnosis, Pt/caregiver will state strategies to reduce risk factors, Resolved problem, Goals/Outcomes met, Pt/caregiver will state understanding of procedure, Pt will state pain at procedure site to be tolerable Cardiac Interventions Implemented Assess/monitor cardiac status, Assess/monitor neuro status, Assess/monitor respiratory status, Call/Report variances in ECG to provider, Document & Monitor O2 Sats; Administer O2 as ordered, Ensure adequate caloric intake, If no bowel movement in 3 days activate bowel regime, Monitor & document daily weight, Apply pressure at puncture site if hematoma develops, Assess for post procedural discomfort, Assess for post procedural hematoma at site, Assess procedure site for distal pulses, Pre/post PCI guideline Goals/Interventions, Cardiac Yes Cardiac, Problem Start 04/14/2022 18:31 Reviewed Plan with, Cardiac Status Patient Patient Progression, Cardiac Status Patient progressing according to plan . Nursing Data Cardiac Data. : Cardiac Data. 04/15/2022 9:00 EST Cardiovascular Symptoms Other: shortness of breath Nail Bed Color, Fingers Pale Nail Bed Color, Toes Pale Skin Temperature Upper Extremities Warm, Dry Skin Temperature Lower Extremities Warm, Dry Heart Sounds S1, S2 Heart Rhythm Regular Cardiovascular Comment no chest pain, right groin site without hematoma/ooze, csm intact to right foot Cardiac Rhythm Normal sinus rhythm Capillary Refill < 3 seconds campus monitor Yes Cardiovascular WNL except 04/15/2022 6:46 EST Hgb 8.9 Gm/dL L Hct 26.2 % L . Gastrointestinal Data. : Gastrointestinal Data. 04/15/2022 9:00 EST GI WNL . Genitourinary Data. : Genitourinary Data. 04/15/2022 9:00 EST WNL . Neurological Data. : Neurological Data. 04/15/2022 9:37 EST Pain Intensity 0 04/15/2022 9:00 EST Neuro WNL . Respiratory/Pulmonary Data. : Respiratory/Pulmonary Data. 04/15/2022 9:00 EST Left Lower Lobe Breath Sounds Diminished Right Lower Lobe Breath Sounds Diminished Respiratory WNL except . Vital Signs : VITAL SIGNS SECTION 04/15/2022 8:06 EST Temperature 98.4 DegF Temperature Route Oral Pulse Rate 86 bpm Respiratory Rate 18 br/min Systolic Blood Pressure 123 mm Hg Diastolic Blood Pressure 59 mm Hg Blood pressure sites Arm, right Mean Arterial Pressure 80 mm Hg Pulse Pressure 64 mm Hg Oxygen Saturation 98 % Mode of Delivery (Oxygen) Room air . Narrative/Incidental No chest pain, right groin cath site remains stable, sinus rhythm on monitor with one short run afib (no symptoms, texted telemetry strip to MD), tolerating cardiac medicines/eating at meals/oob to BR to toilet. Worked with cardiac rehab. Reviewed discharge instructions with pt - special attention to f/u with PMD this week( will need tohave PMD provide referral to renal & pulmonary)/cardiology(pt has nai't in May)/cardiac rehabin [place](pt to phone), medicines( pt actually has prasugrel that was picked up at [facility] pharmacy on the ), script for blood draw to be done Monday 04/17/ cardiac cath discharge instructions,cardiac risk factor & cardiac diet instructions - answered questions - he understands(see discharge instructions). At 2:30pm assisted pt in wheelchair to lobby where his is picking him up to drive him home. * Cheri Johnson RN: PERFORM, SIGN, VERIFY Event Display: Progress Note Hospital Authored Date: [id number] Patient: CLAUDETTE HOLLINS Age: 81 years Sex: Male : 1940 Associated Diagnoses: None Author: Cheri Johnson RN Findings Problem Related to Alteration in Cardiac Function (new) : Alteration in Cardiac Function/new 04/15/2022 4:00 EST Alteration in Cardiac Status Related to Cardiac Procedure, Other: C.cath PCI . Nursing Data Vital Signs : VITAL SIGNS SECTION 04/15/2022 2:08 EST Early Warning Score 2.00 04/15/2022 2:08 EST Temperature 97.3 DegF Temperature Route Temporal Pulse Rate 80 bpm Respiratory Rate 20 br/min Systolic Blood Pressure 122 mm Hg Diastolic Blood Pressure 59 mm Hg Blood pressure sites Arm, right Mean Arterial Pressure 80 mm Hg Pulse Pressure 63 mm Hg Oxygen Saturation 100 % Mode of Delivery (Oxygen) Room air . Evaluation pt s/p cath on previous shift a esther to the lad with right groin site dressing dry and intact with no bleeding or hematoma detected. ls clear throughout and o2 sat 100% on r/a. pt up independent and gait steady. plan to be discharged in the am. see biophyical and tele strips in cis for complete assessment.. * Denisse HAMM, Josey: PERFORM, SIGN, VERIFY, MODIFY, SIGN Event Display: Progress Note Hospital Authored Date: [id number] Patient: CLAUDETTE HOLLINS [facility]: [id number] Age: 81 years Sex: Male : 1940 Associated Diagnoses: None Author: Karina Salcedo RN Findings Problem Related to Alteration in Cardiac Function (new) : Alteration in Cardiac Function/new 04/14/2022 18:00 EST Alteration in Cardiac Status Related to Cardiac Procedure, Other: C.cath PCI Goals & Outcomes, Cardiac Status Pt will resume/maintain adequate cardiac output, Pt will resume/maintain adequate hemodynamic status, Pt will resume/maintain adequate respiratory function, Pt will resume/maintain intact neuro function, Pt will maintain adequate GI/ function appropriate for pt, Pt will maintain adequate nutrition status, Pt/caregiver will state understanding of diagnosis, Pt/caregiver will state strategies to reduce risk factors, Resolved problem, Goals/Outcomes met, Pt/caregiver will state understanding of procedure, Pt will state pain at procedure site to be tolerable Cardiac Interventions Implemented Assess/monitor cardiac status, Assess/monitor respiratory status,Assess for tolerance of IV infusions; verify rate & dose, Call/Report variances in ECG to provider, Document & Monitor O2 Sats; Administer O2 as ordered, Ensure adequate caloric intake, If nobowel movement in 3 days activate bowel regime, Monitor & document daily weight, Monitor anticoagulation values, Monitor ECG w/administration of antiarrhythmics (CO 13.420), Obtain 12 Lead ECG and CXR as ordered, Prep pt for treatments & procedures, Teach/encourage deep breath & cough exercises, Teach/encourage use of incentive spirometer, Team conversation regarding appropriate levelof care, Turn & reposition Q2 hours per activity restrictions, Use adjunctive therapies per Cristobal sevilla of Practice, Apply pressure at puncture site if hematoma develops, Assess baseline peripheralpulses, Assess for post procedural discomfort, Assess for post procedural hematoma at site, Assess procedure site for distal pulses, Assist with femstop application as needed, Implement post procedure orders, Monitor for Vagal reaction, Notify Provider if groin becomes unstable, Pre/post cath guideline, Pre/post PCI guideline BH Goals/Interventions, Cardiac Yes Cardiac, Problem Start 04/14/2022 18:31 Reviewed Plan with, Cardiac Status Patient Patient Progression, Cardiac Status Plan Initiation . Evaluation Pt arrived to unit from c.cath, s/p 1 ESTHER stent to LAD. R groin dressing DCI, no oozing, hematoma, + CMS. Vss. S/P protocol maintained. Stable. CTM per PCI plan. See flowsheet for vss details.. Discharge Information Case Management Discharge Plan : Case Management Discharge Plan Data 04/11/2022 17:03 EST Discharge Level of Care at Discharge Home/[facility] Deprecated Cardiac rehabilitation treatment plan Progress note and attainment of goals (narrative) * Carmen Osuna RN: PERFORM, SIGN, VERIFY Event Display: Cardiac Rehab Note Authored Date: [id number] Patient: CLAUDETTE HOLLINS Age: 81 years Sex: Male : 1940 Associated Diagnoses: None Author: Carmen Osuna RN Diagnosis Cardiac Rehab Diagnosis: s/p PCI. Pre-exercise Vitals Vital Signs: 90 HR, 140/70 BP Sitting, 99 SaO2. Vital Signs Comment: Reviewed in [facility]IS. Pre-exercise Physical Examination Neurologic: alert & oriented. Cardiovascular: heart rate regular. Activity Symptoms with Cardiac Rehab Symptoms: Dyspnea on exertion. Activity Activity tolerance: Change in activity tolerance no change--still with MUNOZ --same as before cath. Transfers: independent. Ambulate: independent, distance ambulated 50 feet. Assistive Devices Assistive Device: None. Post-exercise Vitals Vital Signs: 101 HR, 110/66 BP Sitting, 99 SaO2. Patient Education Education: Patient alone, Written material included, Stent card reviewed. Topic: Pathophysiology, Home activity guidelines/limits. Recommendation and Plan Outpatient follow up recommended: but declined at this point, but wanted phone number if changes mind. Cardiac Rehab: Will sign off at this time. Recommendation comment: RN notified of plan, Still c/o sob when increaaes activity as before, no chest discomfort but MUONZ is the same as before heart cath- MUNOZ is very limiting. Patient Care team information Care Team Personnel Name: Karina Salcedo RN Position: [facility] RN Member Role: Primary Care Nurse Name: Fany Story MD Position: [facility] Primary Care Physician Member Role: PCP Address: Address: [address] [place] [address]- Care Team Related Persons Name: HOUSTON HOLLINS Address: [address] [place] [address]
--- OUTSIDE RECORDS SUMMARY | 2023-01-20 06:36 | XMS_ITS | Continuity of Care Document ---
Author Name Unknown Organization [facility] ter Address [address] [place] [id number] Care Team Providers Care Foundry Operator Name Role Phone Fany Story MD Primary Care Physician Encounter [facility] Date(s): 04/11/22 - 04/11/[address] [id number] Discharge Disposition: A-D/C Home Attending Physician: Sandie Castellanos MD Admitting Physician: Sandie Castellanos MD Referring Physician: Dionicio Groves MD Allergies, Adverse Reactions, Alerts Substance Reaction Severity Status penicillin Active Medications Albuterol (Eqv-ProAir HFA) 90 mcg/inh inhalation aerosol INHALE 2 PUFFS INTO THE LUNGS EVERY 4 HOURS NEEDED FOR COUGH OR WHEEZING Start Date: 04/11/22 Status: Ordered allopurinol 100 mg oral tablet TAKE 1 TABLET BY MOUTH 2 TIMES DAILY Start Date: 04/11/22 Status: Ordered amLODIPine 5 mg oral tablet TAKE 1 [...] Refills, Maintenance, 04/11/22 16:40:00 EST, ER Tablet, [facility], Partial fill upon patient request if the prescription is for a schedule II opioid drug., 185, cm, 04/11/22 8:02:0... Start Date: 04/11/22 Status: Ordered prasugrel 10 mg oral tablet 1 tablet = 10 mg, By Mouth, Daily, # 30 tablet, 0 Refills, Maintenance, 04/11/22 15:22:00 EST, [facility], Partial fill upon patient request if the prescription is for a schedule II opioid drug., 185, cm, 04/11/22 8:02:00 EST, Height, 86... Start Date: 04/11/22 Status: Ordered pravastatin 20 mg oral tablet [...] Range]: 1 2 3 Height 185 cm (04/11/22 8:02 AM) 185 cm (04/11/22 7:49 AM) Weight 86.3 kg (04/11/22 8:02 AM) 86.3 kg (04/11/22 7:49 AM) Oxygen Saturation [94-100 %] 98 % (04/11/22 5:00 PM) 99 % (04/11/22 4:30 PM) 95 % (04/11/22 4:00 PM) Pulse Rate [55-90 bpm] 75 bpm (04/11/22 8:02 AM) Body Mass Index [18.5-24.99 kg/m2] 25.22 kg/m2 *H* (04/11/22 8:02 AM) Blood Pressure [90-138/55-84 mm Hg] 148/76mm Hg *H* (04/11/22 4:30 PM) 150/81mm Hg *H* (04/11/22 4:00 PM) 152/73mm Hg *H* (04/11/22 3:30 PM) Respiratory Rate [16-30 br/min] 17 br/min (04/11/22 5:00 PM) 14 br/min *L* (04/11/22 4:30 PM) 13 br/min *L* (04/11/22 4:00 PM) Temperature [96.8-100.4 DegF] 98.0 DegF (04/11/22 8:02 AM) Mode of Delivery (Oxygen) Room air (04/11/22 5:00 PM) Room air (04/11/22 4:30 PM) Room air (04/11/22 4:00 PM) Blood pressure sites Arm, left (04/11/22 4:30 PM) Arm, left (04/11/22 4:00 PM) Arm, left (04/11/22 3:30 PM) Temperature Route Temporal (04/11/22 8:02 AM) Dry Weight 86.3 kg (04/11/22 8:02 AM) 86.3 kg (04/11/22 7:49 AM) Weight Obtained Via Standing scale (04/11/22 8:02 AM) Standing scale (04/11/22 7:49 AM) Dry Weight Obtained Via Standing scale (04/11/22 8:02 AM) Standing scale (04/11/22 7:49 AM) Cardiac catheterization study * Event Display: Cardiac Tufting Machine Fixer Report Authored Date: Cardiac Diagnostic + PCI Report Demographics Patient Name GURVINDER WILKINS Gender Male Corporate Race Black Facility Room Number [id number] Height 72.83 inches Date of 1940 Weight 190.26 pounds Age 81 year(s) BSA 2.1 m2 Accession Number [id number] BMI 25.22 kg/m2 Referring Physician Dionicio Groves MD Date of Study 04/11/2022 Fany Castellanos MD Performing Physician Sandie Castellanos MD Fellow Interventional Physician Sandie Castellanos MD Procedure Procedure Type Diagnostic procedure:Coronary Angiography with [facility] PCI procedure:FFR Miscellaneous:ACT ACC Diagnostic Catheterization Status:Elective [facility] Interventional Catheterization Status:Elective Indications Indications: CHF. Clinical History Admission Medications + +------+-------+ + + +---------+ !Medication !Dosage!Times !Last !Last !Administered !Comments ! ! ! !Per Day!Delivery !Delivery ! ! ! ! ! ! !Date !Time ! ! ! + +------+-------+ + + +---------+ !Aspirin (any)!81 mg !x 1 !04/11/2022 !00:00 !Yes ! ! + +------+-------+ + + +---------+ Clinical Evaluation Leading to Procedure - The patient's CAD presentation was assessed as: Stable angina. - The patient's anginal syndrome during the past two weeks was assessed as: Class III according to the [place] Cardiovascular Society Classification System (CCS). Anti-anginal medications were prescribed during the past two weeks. The medications are: Ca channel Blockers and Long Acting Nitrates. - The patient was diagnosed with a heart failure condition. Heart failure type: Systolic. - The patient's heart failure status was assessed as NYHA Class III - The reason for the patient's lab technician visit is evaluation of cardiomyopathy and/or evaluation of left ventricular systolic dysfunction. ACC Risk Factors The patient risk factors include:peripheral arterial disease, treated hypercholesterolemia, treated hypertension, diabetes mellitus, chronic lung disease, last creatinine: 1.6 mg/dl, creatinine clearance: 44.95 ml/min, dyslipidemia, former tobacco use and prior heart failure. Additional Clinical History:81-year-old male with past medical history significant for peripheral vascular disease, diabetes mellitus type 2, hypertension, hyperlipidemia, chronic kidney disease stage III with baseline creatinine of 1.6-1.7, asthma, gout and sleep apnea who was having intermittent chest discomfort and underwent an echocardiogram which showed global hypokinesis with ejection fraction of 30 to 35%. He is scheduled for left heart catheterization with coronary angiogram. He is currently on amlodipine and isosorbide mononitrate. Creatinine is 1.6. Procedure Data Procedure Date Date: 04/11/2022Start: 12:55End: 13:48 The procedure was explained in detail to the patient. Risks, complications and alternative treatments were reviewed. Written consent was obtained. Entry Locations - Retrograde Percutaneous access was performed through the Right Radial artery (Primary location). A 6 Fr sheath was inserted. Hemostasis was successfully obtained using TR Band. Closure Comments: 13cc's. Procedure Medications - Versed (Midazolam) I.V. 1 mg. - Fentanyl I.V. 25 mcg. - Lidocaine 2% S.C. Right Wrist 5 ml. - Nitroglycerin I.A. 200 mcg. - Versed (Midazolam) I.V. 1 mg. - Fentanyl I.V. 25 mcg. - Heparin I.V. 4000 units. - 0.9NS I.V. bolus 250 ml. - Heparin I.V. 5000 units. - Nitroglycerin I.A. 200 mcg. Sedation: My intra-service moderate sedation time was: from 1255 to 1345. Refer to procedural log for detailed chronological information. Contrast Material - Omnipaque 35 ml Diagnostic Catheters - [id number] RADIAL TIG 4.0 RADIFOCUS OPTITORQUE CATHETERwas used for: Left heart catheterization. - [id number] RADIAL TIG 4.0 RADIFOCUS OPTITORQUE CATHETERwas used for: Left coronary angiography. - [id number] RADIAL TIG 4.0 RADIFOCUS OPTITORQUE CATHETERwas used for: Right coronary angiography. - A6F XBLAD 3.5 VISTA BRITETIP GUIDING CATHETERwas used for: FFR . - A6F JR 4.0 LAUNCHER GUIDING CATHETERwas used for: FFR . Fluoroscopy Time: Diagnostic: 3:00 minutes. PCI: 8:00 minutes. Total: 11:00 minutes. Fluoroscopy Dose: Diagnostic: 275 mGy. PCI: 409 mGy. Total: 684 mGy. Dose Area Product:Diagnostic: 36603 mGy/cm2. PCI: 73312.603729883738 mGy/cm2. Total: 92599.7 mGy/cm2. Dose Area Product:Diagnostic: 2170 ??Gy/m2. PCI: 2644.4499979204863 ??Gy/m2. Total: 4814.57 ??Gy/m2. Procedure Narrative Patient is seen and examined in the Tufting Machine Fixer. The description of the procedure and the risk and benefit including bleeding, radial spasm, contrast-induced nephropathy, [place], stroke, , angioplasty related dissection or perforation were mentioned to the patient. The patient understood and agreed to proceed with the procedure. Right radial artery access was obtained and a 6 Persian sheath was placed. The diagnostic angiogram was performed with [place] diagnostic catheter. LVEDP was measured along with pullback gradient across aortic valve. Additional heparin was given and ACT was achieved more than 250-second. After normalization, and IFR wire was advanced into the distal LAD and IFR was assessed which came out 0.46 indicating severely hemodynamically significant lesion. Then we performed IFR of the mid RCA lesion which came out 0.97 indicating hemodynamically nonsignificant lesion. At the end of the procedure, the sheath was removed and a TR band was placed. Angiographic Findings Cardiac Arteries and Lesion Findings LMCA: Mild diffuse disease (<30%). LAD: Lesion in Mid LAD: Proximal subsection.60% stenosis .The lesion was heavily calcified. iFR +----+ + !iFR !Stage ! +----+ + !0.51!Diagnostic! +----+ + !0.46!Diagnostic! +----+ + Lesion in 1st Diag: Proximal subsection.60% stenosis . Comments:Small caliber vessel. LCx: Mild diffuse disease (<30%). RCA: Lesion in Mid RCA: Mid subsection.60% stenosis . iFR +----+ + !iFR !Stage ! +----+ + !0.97!Diagnostic! +----+ + Hemodynamics Condition: Rest O2 Consumption: Estimated: 240.36Heart Rate: 71 bpm Pressures (mmHg) +-----+ + !Site !Pressure ! +-----+ + !LV !96/1 ,4 ! +-----+ + !AO !90/48 (65) ! +-----+ + !LV !112/0 ,0 ! +-----+ + !AO !105/53 (72)! +-----+ + !AO !104/52 (72)! +-----+ + Valve Gradients and Areas +------+----+----+----+-----+----+------+ !Valve !Peak!Mean!Area!Index!Flow!Source! +------+----+----+----+-----+----+------+ !Aortic!22 !20 ! ! ! ! ! +------+----+----+----+-----+----+------+ !Aortic!22 !20 ! ! ! ! ! +------+----+----+----+-----+----+------+ Shunts Oxygen Values O2 Capacity 126.48 O2 Consumption 240.36 Interventional Procedure Cardiac lesions LAD: Lesion in Mid LAD: Proximal subsection.60% stenosis .The lesion was heavily calcified. Devices used - 185cm STR OMNIWIRE PRESSURE GUIDEWIRE. Number of passes: 1. RCA: Lesion in Mid RCA: Mid subsection.60% stenosis . Devices used - 185cm STR OMNIWIRE PRESSURE GUIDEWIRE. Number of passes: 1. Conclusions Diagnostic Summary 81-year-old gentleman with hypertension, hyperlipidemia, peripheral vascular disease, diabetes mellitus type 2, chronic kidney disease stage III who had crescendo angina. LVEDP 4 mmHg. Mean gradient across aortic valve was 20 mmHg on pullback. Diagnostic angiogram revealed mild diffuse disease of the LMCA, heavily calcified 60% stenosis in the proximal subsection of the mid LAD, 60% stenosis in the proximal subsection of D1 which is a small caliber vessel, mild diffuse disease of the LCx and OM branches, 60% stenosis of the mid subsegment of the mid RCA. Considering the above-mentioned finding, we decided to proceed with IFR assessment of the mid LAD and mid RCA lesion. Diagnostic Recommendations IFR assessment of the mid LAD and mid RCA lesion. Interventional Summary Mid LAD: IFR of the mid LAD came out 0.46 indicating severely hemodynamically significant lesion. Mid RCA: IFR of the mid RCA, 0.97 indicating hemodynamically nonsignificant lesion. Considering heavily calcified vessel requiring atherectomy, groin access as well as chronic kidney disease, we decided to end the procedure today and bring him back as an outpatient for planned PCI of the mid LAD lesion. In the meanwhile, we will load him with prasugrel 10 mg p.o. once today and 5 mg p.o. daily from tomorrow. We will hold lisinopril and go up on isosorbide to 60 mg. Interventional Recommendations Continue aspirin 81 mg p.o. indefinitely. Give prasugrel 60 mg p.o. x1 loading dose today and 10 mg p.o. daily from tomorrow. We will schedule planned PCI as outpatient with possible rotational atherectomy/CSI atherectomy and imaging. DC lisinopril and increase isosorbide to 60 mg daily. Patient will follow-up with Dr. West as outpatient. Signatures * Event Display: Cardiac Tufting Machine Fixer Report Authored Date: History and physical note * Event Display: History and Physical Hospital Authored Date: * Event Display: History and Physical Hospital Authored Date: EKG study * Event Display: ECG 12-Lead Authored Date: Please click on pdf link to open report * Event Display: ECG 12-Lead Authored Date: Ventricular Rate: 83 BPM Atrial Rate: 83 BPM P-R Interval: 132 ms QRS Duration: 94 ms Q-T Interval: 408 ms QTC Calculation(Bazett): 479 ms P [place]: 52 degrees R [place]: -10 degrees T [place]: 160 degrees Sinus rhythm with Premature supraventricular complexes Voltage criteria for left ventricular hypertrophy T wave abnormality, consider lateral ischemia Prolonged QT Abnormal ECG When compared with ECG of 13-JUL-2009 07:08, Premature supraventricular complexes are now Present T wave inversion now evident in Lateral leads QT has lengthened Confirmed by STEPAN CARTWRIGHT ([id number]) on 04/11/2022 8:50:03 PM [place]: STEPAN CARTWRIGHT Deprecated Cardiac rehabilitation treatment plan Progress note and attainment of goals (narrative) * Lyndon Garcia: PERFORM, SIGN, VERIFY Event Display: Cardiac Rehab Note Authored Date: Patient: CLAUDETTE HOLLINS Age: 81 years Sex: Male : 1940 Associated Diagnoses: None Author: Lyndon Garcia Diagnosis Cardiac Rehab Diagnosis: Pt does not have a qualifying diagnosis for Cardiac Rehab will sign off.. Note * Antonella Manley RN: PERFORM Event Display: Discharge/Transfer Note Hospital Authored Date: [id number] Nursing Discharge Note Entered On: 04/11/2022 17:04 EST Performed On: 04/11/2022 17:03 EST by Antonella Manley RN Nursing Discharge Note 2 Discharge Time : 04/11/2022 17:03 EST Discharge Level of Care at Discharge : Home/Senior Care/Foster Care Patient Left Unit Via : Wheelchair Patient Accompanied Off Unit with : Responsible adult DC Instructions Provided & Signed by Pt : Yes Patient Understands D/C Instructions : Yes Verbalized Understanding of D/C Plan By : Patient Patient Instructions Discharge Signed : Yes Did Pt have Specialty Bed or Wound Vac : No Antonella Manley RN - 04/11/2022 17:03 EST * Antonella Manley RN: MODIFY, PERFORM Event Display: Patient Education/Instruction Authored Date: [id number] Inpatient Adult Discharge Instructions [place] [id number] Name: CLAUDETTE HOLLINS : 1940 Visit: 04/11/2022 06:15:00 Current Date: 04/11/2022 16:24 Account: [id number] Inpatient Adult Discharge Instructions We would like [...] and their families. Surveys are administered by [facility] ?? If further treatment with your primary care physician or another doctor is recommended, it is important for you to keep the appointment. Call your primary care physician or return to the Emergency Department immediately if your condition worsens, fails to improve, or new symptoms develop. If you need to find a doctor, you can call [facility] for a referral at [phone] or toll free at [phone] or log in to [email or web address].. ?? You can view and manage your care through the patient portal or by using a health care nai of your choosing. [email or web address] is a website that allows you to securely view your medical information including your hospital discharge summary, office visit summaries, medications and follow-up visits. You can also request appointments, renew medications, and request access to your medical information using a health care nai of your choosing, or just ask a question. You can enroll at [email or web address] or register during your next office visit. You have been discharged from [facility], Patient Care Unit: CARE. If you have any questions regarding these instructions after you leave, please call us and we will be happy to assist you. [facility] Your Care Team Attending Physician Sandie Castellanos MD Discharging Providers Sandie Castellanos MD Reason for Admission i had chest pressurewalking in here today all across my chest. 09/11 Tests Performed Below is a partial list of the tests performed during your hospitalization. You may have had other tests and procedures not included in this list. Please discuss all test results with your provider. GLUCOSE POC Type and Screen Primary Care Provider Porsha CARRERA, Fany Advance Directive Health Care Proxy on File No Discharge Vitals Temperature: 98 DegF Height: 185 cm Pulse Rate: 75 bpm Weight: 86.3 kg Respiratory Rate:??13 br/min??Low Body Mass Index:??25.22 kg/m2??High Systolic Blood Pressure:??150 mm Hg??High Body surface area: 2.11 Diastolic Blood Pressure: 81 mm Hg ?? Oxygen Saturation: 95 % ?? Studies Pending All tests and labs ordered during this hospital stay have been completed unless listed below. Please discuss all pending results with your provider listed above in these instructions. ?? No incomplete studies found What to do next Instructions From Your Doctor Discharge Orders You Need to Schedule the Following Appointments Follow Up with??Dionicio Groves MD When??Within 1 to 2 weeks Why: Please wait until after your next procedure to schedule your resident intern follow up appointment Where: ?? Discharge Medications CLAUDETTE HOLLINS :1940 Visit Date:04/11/2022 Medications: Please continue your medications until treatment is completed or stopped by your provider. Medications not listed below should be discontinued. Discuss any questions related to medications with your provider. What How Much When Instructions Next Dose New prasugrel (prasugrel 10 mg oral tablet) 1 tab(s) Oral Daily Pickup at [facility] 3 Start this medication 04/11/2022 in AM Changed Isosorbide Mononitrate (isosorbide mononitrate 60 mg oral tablet, extended release) 1 tab(s) Oral Daily in the morning Pickup at [facility]. Start this medication 04/11/2022 in AM Unchanged Albuterol (Albuterol (Eqv-ProAir HFA) 90 mcg/ inh inhalation aerosol) INHALE 2 PUFFS INTO THE LUNGS EVERY 4 HOURS NEEDED FOR COUGH OR WHEEZING ?? Continue taking as prescribed Unchanged Allopurinol (allopurinol 100 mg oral tablet) TAKE 1 TABLET BY MOUTH 2 TIMES DAILY ?? Continue taking as prescribed Unchanged Amlodipine (amLODIPine 5 mg oral tablet) TAKE 1 TABLET BY MOUTH DAILY ?? Continue taking as prescribed Unchanged Aspirin (aspirin 81 mg oral delayed release tablet) 1 tab(s) Oral Daily Continue taking as prescribed Unchanged GlipiZIDE (glipiZIDE 2.5 mg oral tablet, extended release) TAKE 1 TABLET BY MOUTH DAILY ?? Continue taking as prescribed Unchanged Pravastatin (pravastatin 20 mg oral tablet) TAKE 1 TABLET BY MOUTH DAILY ?? Continue taking as prescribed Pharmacy Information [facility].: [address] [place], [place] [id number] [phone] [facility] 3: [address] [place], [place] [id number] [phone] ?? What When Comments Stop Taking Lisinopril (lisinopril 20 mg oral tablet) TAKE 1 TABLET BY MOUTH DAILY ?? Test Results Below is a partial list of the most recent Laboratory test results done prior to this discharge. You may have had other tests and procedures not included in this list. Please discuss all test resultswith your provider. GLUCOSE POC (04/11/2022) ???Glucose, POC - 153 mg/dL Type and Screen (04/11/2022) ???Blood Type - A Positive???Antibody Screen - Negative Allergies (NKA means No Known Allergies) penicillin Problems Active Problems??(2) Abnormal finding on chest xray?? Positive QuantiFERON-TB Gold test?? Education Materials Below is the list of Educational Leaflet Providered with your Discharge Instructions. Surgery Radial Cath Approach Discharge Instructions?? Procedural Sedation?? Bleeding or Hematoma After Cardiac Catheterization?? Valuables and Belongings I fully understand and agree that [facility] accepts no responsibility for all my personal [...] to send valuables and belongings home. ?? Date for Pt to Sign Valuables/Belongings: 04/11/22 07:53:00 ?? Other Discharge Information ? Pulmonary Rehab Status?? Pulmonary Rehab Discharge Status?? Respiratory Rate:??13 br/min??Low ? Common Emergency Awareness Tips IS IT A [...] are strongly encouraged to quit. Please call [facility] Link at [phone] or [phone] ([phone]) or log in to [email or web address] for referrals to smoking cessation programs. ?? The National Suicide Prevention Hotline is available 25/09 if you or someone you know needs to find a reason to keep living. By calling 2-358-300-WeMonitor (2845) you'll be connected to a skilled, trained counselor at a crisis center in your area. INPATIENT DISCHARGE INSTRUCTIONS SIGNATURE PAGE CLAUDETTE HOLLINS Location:[facility] Registration Date and Time:04/11/2022 06:[address] [facility] Primary Care Physician: Porsha CARRERA, Fany, I CLAUDETTE HOLLINS, have received the above patient education materials/instructions and have verbalized understanding. If ambulance or transport services are being used I further acknowledge beinggiven a choice of service. ?? If you need to contact me, please call me at this number: . Patient/Plate Maker Zinc Name: Patient/Plate Maker Zinc Signature: Relationship to Patient: Witness Name/Signature: Date: * Antonella Manley RN: PERFORM Event Display: Patient Education Leaflets Authored Date: [id number] Prasugrel Oral Tablet ?? [address] Prasugrel Oral Tablet Brands: Effient Uses This [...] about all medicines taken. Include prescription and rkwx-mrs-tuxovdp medicines, vitamins, and herbal medicines. Speak with [...] have any questions about this medicine. ?? [email or web address] IMPORTANT NOTE: This document tells you briefly how to take your medicine, but it does not tell youall there is to know about it. Your doctor or pharmacist may give you other documents about your medicine. Please talk to them if you have any questions. Always follow their advice. There is a more complete description of this medicine available in Algerian. Scan this code on your smartphone or tablet or use the web address below. You can also ask your pharmacist for a printout. If you have any questions, please ask your pharmacist. The display and use of this drug information is subject to Terms of Use. Copyright(c) 2021 [employer] ?? [employer]. All rights reserved. This information is not intended as a substitute for professional medical care. Always follow your healthcare professional's instructions. ?? * Antonella Manley RN: PERFORM Event Display: Patient Education Leaflets Authored Date: [id number] Isosorbide Extended Release Oral Tablet ?? [address] Isosorbide Extended Release Oral Tablet Uses This medicine is used for the following purposes: ??? angina ??? enlarged veins ?? Instructions Swallow the medicine without crushing or chewing it. Take the medicine with 250 mL (1 cup) of water. It is very important that you take the medicine at about the same time every day. It will work bestif you do this. Take the medicine first thing in the morning. Keep the medicine at room temperature. Avoid heat and direct light. It is important that you keep taking each dose of this medicine on time even if you are feeling well. If you forget to take a dose on time, take it as soon as you remember. If it is almost time for thenext dose, do not take the missed dose. Return to your normal schedule. Do not take 2 doses at one time. Tell your doctor and pharmacist about all your medicines. Include prescription and cgvv-crc-vguxlekcycsvvhoz, vitamins, and herbal medicines. Do not suddenly stop taking this medicine. Check with your doctor before stopping. ?? Cautions Tell your doctor and pharmacist if you ever had an allergic reaction to a medicine. Do not use the medication any more than instructed. This medicine may cause dizziness or fainting, especially after exercising or in hot weather. Be very careful when standing or sitting up quickly. Your ability to stay alert or to react quickly may be impaired by this medicine. Do not drive or operate machinery until you know how this medicine will affect you. Tell the doctor or pharmacist if you are , planning to be , or . Do not take this medicine with other medicines called PDE5 inhibitors (Viagra, Levitra, Cialis). Your doctor will let you know if it is safe for you to do so. Do not start or stop any other medicines without first speaking to your doctor or pharmacist. Do not share this medicine with anyone who has not been prescribed this medicine. ?? Side Effects The following is a list of some common side effects from this medicine. Please speak with your doctor about what you should do if you experience these or other side effects. ??? dizziness ??? headaches ??? nausea Call your doctor or get medical help right away if you notice any of these more serious side effects: ??? low blood pressure A few people may have an allergic reaction to this medicine. Symptoms can include difficulty breathing, skin rash, itching, swelling, or severe dizziness. If you notice any of these symptoms, seek medical help quickly. ?? Extra Please speak with your doctor, nurse, or pharmacist if you have any questions about this medicine. ?? [email or web address] IMPORTANT NOTE: This document tells you briefly how to take your medicine, but it does not tell youall there is to know about it. Your doctor or pharmacist may give you other documents about your medicine. Please talk to them if you have any questions. Always follow their advice. There is a more complete description of this medicine available in [place]ian. Scan this code on your smartphone or tablet or use the web address below. You can also ask your pharmacist for a printout. If you have any questions, please ask your pharmacist. The display and use of this drug information is subject to Terms of Use. Copyright(c) 2021 [employer] ?? [employer]. All rights reserved. This information is not intended as a substitute for professional medical care. Always follow your healthcare professional's instructions. ?? * Antonella Manley RN: PERFORM Event Display: Patient Education Leaflets Authored Date: [id number] Surgery Radial Cath Approach Discharge Instructions ?? 278 Radial Cath Approach Discharge Instructions ?? Activity Take it easy the rest of the day. Limit your activity on the affected side.?? Act as if your arm is broken for 24 hours. No lifting with affected arm for 24 hours. No pushing or pulling with the affected arm. Do not reach or lift with the affected arm. Do not place excessive pressure on the wrist. ?? Precautions Due to intravenous sedation: It is recommended that someone stay with you for the first night after your procedure. Do not drive or operate hazardous machinery for 24 hours. Do not make legal decisions for 24 hours. Avoid alcohol for 24 hours. Unless directed otherwise, keep yourself hydrated. ?? Dressing/Incision Care You may remove the dressing 24 hours after your procedure. Replace with band aid for an additional 24 hours. You may shower and cleanse the site with soap &&water then pat dry. Avoid submersion of site in water x 5 days. Cover the with a clean band aid daily until site is healed. If the band aid becomes soiled, replacewith a clean new one. Do not apply any ointments, lotions, gels or powders to the puncture site. ?? When to contact your doctor If any of the following signs of infection occur: Fever greater than 100 degrees F Increased pain Drainage, redness or warmth at puncture site Tingling of the fingers and hand that last longer than 3 days Slight bubble of blood or bleeding from site: apply manual pressure and notify your doctor ?? Emergency situations: Bleeding from the site that will not stop: apply manual pressure and notify your doctor Profuse bleeding streaming from the puncture site: Apply manual pressure and notify your doctor immediately If your hand becomes bluish, cold to the touch, or painful, notify your doctor immediately or go toEmergency Department. For these emergent situations: If unable to contact your physician, call 911. ?? Patient Care team information Care Team Personnel Name: Fany Story MD Position: [facility] Primary Care Physician Member Role: PCP Address: Address: [address] [place] [id number]- Care Team Related Persons Name: HOUSTON HOLLINS Address: [address] [place] [address]
--- OUTSIDE RECORDS SUMMARY | 2023-01-20 06:36 | XMS_ITS | Continuity of Care Document ---
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 Name Role Phone Not on Staff, PCP Primary Care Physician Unavail able Encounter [facility] Date(s): 12/19/22 - 12/19/[address] [address] Discharge Disposition: A-D/C Home Attending Physician: Sandie Castellanos MD Admitting Physician: Sandie Castellanos MD Referring Physician: Dionicio Groves MD Allergies, Adverse Reactions, Alerts Substance Reaction Severity Status penicillin Active Immunizations Given and Recorded Vaccine Date Status Refusal Reason influenza virus vaccine, inactivated 02/02/22 Rajinder rded influenza virus vaccine, inactivated 11/25/20 Rajinder rded influenza virus vaccine, inactivated 02/28/20 Rajinder rded influenza virus vaccine, inactivated 12/27/18 Rajinder rded influenza virus vaccine, inactivated 11/14/17 Rajinder rded influenza virus vaccine, inactivated 01/15/17 Rajinder rded influenza virus vaccine, inactivated 04/11/16 Rajinder rded influenza virus vaccine, inactivated 11/17/14 Rajinder rded influenza virus vaccine, inactivated 12/14/13 Rajinder rded influenza virus vaccine, inactivated 12/20/12 Rajinder rded influenza virus vaccine, inactivated 11/21/11 Rajinder rded influenza virus vaccine, inactivated 12/08/10 Rajinder rded influenza virus vaccine, inactivated 01/20/10 Rajinder rded influenza virus vaccine, inactivated 02/18/09 Rajinder rded influenza virus vaccine, inactivated 12/30/07 Rajinder rded influenza virus vaccine, inactivated 12/13/06 Rajinder rded influenza virus vaccine, inactivated 01/28/06 Rajinder rded SARS-CoV-2 (COVID-19) mRNA-1273 vaccine 04/22/21 R ecorded SARS-CoV-2 (COVID-19) mRNA-1273 vaccine 07/09/20 R ecorded SARS-CoV-2 (COVID-19) mRNA-1273 vaccine 06/11/20 R ecorded SARS-CoV-2 (COVID-19) mRNA-1273 vaccine 04/29/20 R ecorded pneumococcal 13-valent vaccine 10/22/14 Recorded tetanus/diphtheria/pertussis, acel(Tdap) 11/21/11 Recorded pneumococcal 23-valent vaccine 10/26/09 Recorded tetanus-diphtheria toxoids (Td) 07/18/01 Recorded Medications Albuterol (Eqv-ProAir HFA) 90 mcg/inh inhalation aerosol INHALE 2 PUFFS INTO THE LUNGS EVERY 4 HOURS NEEDED FOR COUGH OR WHEEZING Start Date: 04/11/22 Status: Ordered allopurinol 100 mg oral tablet TAKE 1 TABLET BY MOUTH 2 TIMES DAILY Start Date: 04/11/22 Status: Ordered amLODIPine 5 mg oral tablet TAKE 1 TABLET BY MOUTH DAILY Start Date: 04/11/22 Status: Ordered Anoro Ellipta 62.5 mcg-25 mcg/inh inhalation powder 1 puffs, Inhalation, Daily, # 30 each, 0 Refills, Maintenance, 12/19/22 8:27:00 EDT, Powder, Partial fill upon patient request if the prescription is for a schedule II opioid drug. Start Date: 12/19/22 Status: Ordered aspirin 81 mg oral delayed [...] Refills, Maintenance, 04/11/22 16:40:00 EST, ER Tablet, [facility], Partial fill upon patient request if [...] mg, By Mouth, Daily, # 90 tablet, 10 Refills, Maintenance, 12/19/22 14:05:00 EDT, [id number], Partial fill upon patient request if the prescription is for a schedule IIopioid drug., 185, cm, 12/19/22 8:23:00 EDT, Height... Start Date: 12/19/22 Status: Ordered pravastatin 20 mg oral tablet [...] Range]: 1 2 3 Height 185 cm (12/19/22 7:30 AM) Weight 83.8 kg (12/19/22 7:30 AM) Oxygen Saturation [94-100 %] 96 % (12/19/22 6:15 PM) 99 % (12/19/22 6:00 PM) 99 % (12/19/22 5:30 PM) Pulse Rate [55-90 bpm] 80 bpm (12/19/22 7:30 AM) Body Mass Index [18.5-24.99 kg/m2] 24.49 kg/m2 (12/19/22 7:30 AM) Blood Pressure [90-138/55-84 mm Hg] 145/50mm Hg *H* (12/19/22 6:15 PM) 135/46mm Hg (12/19/22 6:00 PM) 148/53mm Hg *H* (12/19/22 5:30 PM) Respiratory Rate [16-30 br/min] 20 br/min (12/19/22 6:15 PM) 15 br/min *L* (12/19/22 6:00 PM) 18 br/min (12/19/22 5:30 PM) Temperature [96.8-100.4 DegF] 97.3 DegF (12/19/22 7:30 AM) Mode of Delivery (Oxygen) Room air (12/19/22 6:15 PM) Room air (12/19/22 6:00 PM) Room air (12/19/22 5:30 PM) Blood pressure sites Arm, left (12/19/22 2:15 PM) Arm, left (12/19/22 7:30 AM) Temperature Route Temporal (12/19/22 7:30 AM) Dry Weight 83.8 kg (12/19/22 7:30 AM) Weight Obtained Via Standing scale (12/19/22 7:30 AM) Dry Weight Obtained Via Standing scale (12/19/22 7:30 AM) Cardiac catheterization study * Event Display: Cardiac Supervisor Home Energy Consultant Report Authored Date: * Event Display: Cardiac Supervisor Home Energy Consultant Report Authored Date: Cardiac Diagnostic + PCI Report Demographics Patient Name GURVINDER WILKINS Gender Male Corporate Race Black Facility Room Number [id number] Height 72.44 inches Date of 1940 Weight 184.75 pounds Age 82 year(s) BSA 2.07 m2 Accession Number [id number] BMI 24.75 kg/m2 Referring Physician Dionicio Groves MD Date of Study 12/19/2022 Fany Castellanos MD Performing Physician Sandie Castellanos MD Fellow Cuate Lindo MD Interventional Sandie Castellanos MD Physician Procedure Procedure Type Diagnostic procedure:Coronary Angiography, RHC, LHC, Ventriculogram PCI procedure:Coronary IVUS, Stent (Drug Eluting) Miscellaneous:ACT , ULTRASOUND GUIDANCE ACC Diagnostic Catheterization Status:Elective Indications Indications: Shortness of breath and Chest pain. Clinical History Admission Medications + +------+-------+ + + +---------+ !Medication !Dosage!Times !Last !Last !Administered !Comments ! ! ! !Per Day!Delivery !Delivery ! ! ! ! ! ! !Date !Time ! ! ! + +------+-------+ + + +---------+ !Aspirin (any)!81 mg !x 1 !12/18/2022 !00:00 ! ! ! + +------+-------+ + + +---------+ !DANA Inhibitor! ! ! ! ! ! ! !(any) ! ! ! ! ! ! ! + +------+-------+ + + +---------+ !Calcium ! ! ! ! ! ! ! !Channel ! ! ! ! ! ! ! !Kj ! ! ! ! ! ! ! + +------+-------+ + + +---------+ !Calcium ! ! ! ! ! ! ! !Channel ! ! ! ! ! ! ! !Kj ! ! ! ! ! ! ! + +------+-------+ + + +---------+ !Statin (any) ! ! ! ! ! ! ! + +------+-------+ + + +---------+ Clinical Evaluation Leading to Procedure - The patient's CAD presentation was assessed as: Stable angina. - The patient's anginal syndrome during the past two weeks was assessed as: Class III according to the [place] Cardiovascular Society Classification System (CCS). Anti-anginal medications were prescribed during the past two weeks. The medications are: Beta Blockers and Ca channel Blockers. ACC Risk Factors The patient risk factors include:prior PCI;peripheral arterial disease, treated hypercholesterolemia, treated hypertension, chronic lung disease, last creatinine: 1.8 mg/dl, creatinine clearance: 38.15 ml/min, dyslipidemia and prior heart failure. Additional Clinical History:82-year-old male with past medical history significant for peripheral vascular disease, diabetes mellitus type 2, hypertension, hyperlipidemia, chronic kidney disease stage III with baseline creatinine of 1.6-1.7, asthma, gout and sleep apnea who is referred for coronary angiogram considering worsening symptom of exertional chest pressure, discomfort and shortness of breath. He has history of heart failure with reduced ejection fraction and a recent PCI of the LAD with orbital atherectomy earlier this year. Considering his worsening symptoms, he is scheduled for cardiac catheterization. His creatinine is 1.8. Procedure Data Procedure Date Date: 12/19/2022Start: 12:38End: 14:00 The procedure was explained in detail to the patient. Risks, complications and alternative treatments were reviewed. Written consent was obtained. Entry Locations - Antegrade Percutaneous access was performed through the Right Basilic vein. A 5 Fr sheath was inserted. Closure Comments: ACT 228 wait 1 hour from 1403. - Retrograde Percutaneous access was performed through the Right Radial artery (Primary location). A 6 Fr sheath was inserted. Hemostasis was successfully obtained using TR Band. Closure Comments: 14ml. Procedure Medications - Versed (Midazolam) I.V. 1 mg. - Fentanyl 50 mcg. - Versed (Midazolam) I.V. 0.5 mg. - Fentanyl 25 mcg. - Lidocaine 2% S.C. Right Antecubital 3 ml. - Lidocaine 2% S.C. Right Wrist 3 ml. - Heparin I.V. 4000 units. - 0.9NS I.V. bolus 250 ml. - Heparin I.V. 4000 units. - Heparin I.V. 1000 units. - Clopidogrel P.O. 300 mg. - Aspirin P.O. 81 mg. - Nitroglycerin I.C. 200 mcg. - Nitroglycerin I.C. 200 mcg. Sedation: My intra-service moderate sedation time was: from 1246 to 1400. Refer to procedural log for detailed chronological information. Contrast Material - Omnipaque 150 ml Diagnostic Catheters - [id number] BALLOON WEDGE PRESSURE CATHETERwas used for: Right heart catheterization. - A5F JR 4.0 DxTERITY DIAGNOSTIC CATHETERwas used for: Left heart catheterization. - A5F JR 4.0 DxTERITY DIAGNOSTIC CATHETERwas used for: Right coronary angiography. - A5F JL 3.5 INFINITI CATHETERwas used for: Left coronary angiography. - A6F JR 4.0 LAUNCHER GUIDING CATHETERwas used for: PCI. - [id number] RX [employer] [place] DIGITAL IVUS CATHETERwas used for: IVUS. Fluoroscopy Time: Diagnostic: 4:35 minutes. PCI: 10:40 minutes. Total: 15:15 minutes. Fluoroscopy Dose: Diagnostic: 115 mGy. PCI: 148 mGy. Total: 263 mGy. Dose Area Product:Diagnostic: 9850 mGy/cm2. PCI: 35142 mGy/cm2. Total: 97386 mGy/cm2. Procedure Narrative Patient is seen and examined in the Supervisor Home Energy Consultant. The description of the procedure and the risk and benefit including bleeding, radial spasm, contrast-induced nephropathy, ND, stroke, , angioplasty related dissection or perforation were mentioned to the patient. The patient understood and agreed to proceed with the procedure. Right basilic vein access was obtained under ultrasonographic guidance and a 5 [place] sheath was placed. The right heart catheterization was performed using Roosevelt-Niharika catheter. Right radial artery access was obtained and a 6 [place] sheath was placed. The diagnostic angiogram was performed with JL 3.5 and JR4 diagnostic catheter. LVEDP was measured along with pullback gradient across aortic valve. Additional heparin was given and ACT was achieved more than 250 seconds. [email or web address] coronary wire was advanced into the distal RCA and the lesion was predilated with 2.5 mm X 12 mm semicompliant balloon. Then IVUS was performed. Then we proceeded with a 3.0 mm X 18 mm [place] frontier KAROLINA and postdilated with 3.25 mm X12 millimeter NC balloon. The final angiographic result showed excellent stent expansion without any complication. At the end of the procedure, the sheath was removed and a TR band was placed. Angiographic Findings Cardiac Arteries and Lesion Findings LMCA: Mild diffuse disease (<30%). LAD: Mild diffuse disease (<30%).There is a previous stent on Mid LAD Proximal subsection showing wide patency. There is a previous stent on Mid LAD Proximal subsection showing wide patency. LCx: Mild diffuse disease (<30%). RCA: Lesion in Mid RCA: Distal subsection.75% stenosis 6 mm length. Pre procedure JAY III flow was noted. Good runoff was present.Culprit lesion. Hemodynamics Condition: Rest O2 Consumption: Estimated: 235.17Heart Rate: 69 bpm Oxygen Saturation +--------+-----+----+ +---+ + !Location!pCO2 !pO2 !% Saturation!Hgb!O2 Content! +--------+-----+----+ +---+ + !PA ! ! !55.3 !8.9! ! +--------+-----+----+ +---+ + !AO ! ! !97.8 !8.9! ! +--------+-----+----+ +---+ + Pressures (mmHg) +-----+ + !Site !Pressure ! +-----+ + !PA !24/2 (12) ! +-----+ + !PCW !5/6 (3) ! +-----+ + !RV !21/0 ,2 ! +-----+ + !RA !3/0 (0) ! +-----+ + !LV !112/0 ,0 ! +-----+ + !AO !111/57 (78)! +-----+ + !LV !115/0 ,0 ! +-----+ + !AO !148/60 (94)! +-----+ + Cardiac Output +------+ + +-------+ !Method!CO (l/min)!CI (l/min/m2)!SV (ml)! +------+ + +-------+ !Pramod !2.84 !1.4 !41.29 ! +------+ + +-------+ Valve Gradients and Areas +------+----+----+----+-----+------+------+ !Valve !Peak!Mean!Area!Index!Flow !Source! +------+----+----+----+-----+------+------+ !Aortic!4 !0 ! ! !147.07!Pramod ! +------+----+----+----+-----+------+------+ !Aortic!4 !0 ! ! ! ! ! +------+----+----+----+-----+------+------+ Vascular Resistance (dynes x sec x cm-5) +---------+-----+----+----+----+---------+-------+ !CO method!TSVR !SVR !TPVR!PVR !TPVR/TSVR!PVR/SVR! +---------+-----+----+----+----+---------+-------+ !Pramod !32.94!33.1!4.12!2.99!0.13 !0.09 ! +---------+-----+----+----+----+---------+-------+ !Qp or Qs !32.94!33.1! ! ! ! ! +---------+-----+----+----+----+---------+-------+ Shunts Oxygen Values O2 Consumption 235.17 Flows (l/min) Qs 2.84 Interventional Procedure Cardiac lesions RCA: Lesion in Mid RCA: Distal subsection.75% stenosis 6 mm length reduced to 0%. Pre procedure JAY III flow was noted. Post Procedure JAY III flow was present. Good runoff was present.The guidewire cross was successful.Culprit lesion. Devices used - .[address] x[address] PROWATERFlex GUIDEWIRE. Number of passes: 1. - [id number] MR EMERGE BALLOON. Diameter: 2.5 mm. Length: 12 mm. 1 inflation(s) to a max pressure of: 14 norm. - 3.0 x 18mm MARTIN FRONTIER RX CORONARY STENT SYSTEM. 1 inflation(s) to a max pressure of: 12 norm. - 3.91put88og RX NC EUPHORA BALLOON. Diameter: 3.25 mm. Length: 12 mm. 2 inflation(s) to a max pressure of: 14 norm. Conclusions Diagnostic Summary 82-year-old male with history of peripheral vascular disease, coronary artery disease with recent PCI of the LAD with orbital atherectomy, diabetes mellitus type 2, hypertension, hyperlipidemia, chronic kidney disease stage III who was having worsening chest discomfort on exertion along with chest pressure and dyspnea. 24/2 mmHg, mean 12 mmHg PCW 3 mmHg RV 21/0 mmHg, mean 2 mmHg CVP 0 mmHg LVEDP 0 mmHg No significant gradient across aortic valve on pullback. Diagnostic angiogram revealed mild diffuse disease of the LMCA, mild diffuse disease of the LAD with patent prior stents, mild diffuse disease of the LCx and 75% stenosis in the distal subsection of mid RCA. Above-mentioned finding indicates that patient has normal hemodynamics with normal pressure which does not explain his symptoms. His stents were widely patent. Only possible reason of his symptoms could be the significant mid RCA lesion and we decided to proceed with intervention. Diagnostic Recommendations Intervention of the mid RCA lesion. Interventional Summary Mid RCA: IVUS guided PCI of the mid RCA was performed using 3.0 mm X 18 mm [place] frontier KAROLINA and postdilated with 3.25 mm X12 millimeter NC balloon. Interventional Recommendations Continue aspirin 81 mg p.o. indefinitely and prasugrel 10 mg p.o. daily 1 year postintervention. Guideline directed medical management for heart failure with reduced ejection fraction. Follow-up with Dr. Groves at [facility] cardiology office in 3 to 4 weeks. Signatures History and physical note * Event Display: History and Physical Hospital Authored Date: [id number] Note * Kristel Henson RN: PERFORM Event Display: Discharge/Transfer Note Hospital Authored Date: [id number] Nursing Discharge Note Entered On: 12/19/2022 19:25 EDT Performed On: 12/19/2022 19:23 EDT by Kristel Henson RN Nursing Discharge Note 2 Discharge Time : 12/19/2022 18:40 EDT Discharge Level of Care at Discharge : Home/Snf/Foster Care Patient Left Unit Via : Wheelchair Patient Accompanied Off Unit with : Responsible adult DC Instructions Provided & Signed by Pt : Yes Patient Understands D/C Instructions : Yes Verbalized Understanding of D/C Plan By : Patient Patient Instructions Discharge Signed : Yes Discharge Comments : IV site d/c'ed catheter intact. d/c education completed questions encouraged and answered. pt vebalize full understanding and pt stable with all belonging at time of d/c. Did Pt have Specialty Bed or Wound Vac : No Kristel Henson RN - 12/19/2022 19:23 EDT * Kristel Henson RN: Antonella Espinoza RN: PERFORM Event Display: Patient Education/Instruction Authored Date: [id number] Inpatient Adult Discharge Instructions [address] [address] Name: CLAUDETTE HOLLINS : 1940 Visit: 12/19/2022 06:21:00 Current Date: 12/19/2022 16:42 Account: [id number] Inpatient Adult Discharge Instructions We would like [...] and their families. Surveys are administered by [employer] ?? If further treatment with your primary care physician or another doctor is recommended, it is important for you to keep the appointment. Call your primary care physician or return to the Emergency Department immediately if your condition worsens, fails to improve, or new symptoms develop. If you need to find a doctor, you can call [facility] Link for a referral at [phone] or toll free at [phone] or log in to [email or web address].. ?? [facility], in keeping with [facility] guidance, no longer requires face masks for staff, patientsor visitors in most situations. Similiar to time spent indoors at other locations, there is the chance that you were exposed to repiratory viruses during your time with us (such as flu or COVID-19). If you develop symptoms concerning for a viral respiratory infection, please seek testing (and treatment if indicated) from your medical provider or home test kit. ?? You can view and manage your care through the patient portal or by using a health care nai of your choosing. [employer] is a website that allows you to securely view your medical information including your hospital discharge summary, office visit summaries, medications and follow-up visits. You can also request appointments, renew medications, and request access to your medical information using a health care nai of your choosing, or just ask a question. You can enroll at [email or web address] or register during your next office visit. You have been discharged from [facility], Patient Care Unit: CARE. If you have any questions regarding these instructions after you leave, please call us and we will be happy to assist you. [facility] Your Care Team Attending Physician Sandie Castellanos MD Reason for Admission CAD LHC/?PCI HV2 ARR 630AM Tests Performed Below is a partial list of the tests performed during your hospitalization. You may have had other tests and procedures not included in this list. Please discuss all test results with your provider. Primary Care Provider Not on Staff, PCP Advance Directive Health Care Proxy on File No Discharge Vitals Temperature: 97.3 DegF Height: 185 cm Pulse Rate: 80 bpm Weight: 83.8 kg Respiratory Rate:??14 br/min??Low Body Mass Index: 24.49 kg/m2 Systolic Blood Pressure: 133 mm Hg Body surface area: 2.08 Diastolic Blood Pressure:??51 mm Hg??Low ?? Oxygen Saturation: 99 % ?? Studies Pending All tests and labs ordered during this hospital stay have been completed unless listed below. Please discuss all pending results with your provider listed above in these instructions. ?? BUN CBC Creatinine What to do next Instructions From Your Doctor Discharge Orders You Need to Schedule the Following Appointments Follow Up with??Germain CARRERA, Dionicio Mohan When:??Within 1 week: call to discuss follow up visit Where: [address] [facility], [address], [address] [facility] [place] [address]- Discharge Medications CLAUDETTE HOLLINS :1940 Visit Date:12/19/2022 Medications: Please continue your medications until treatment [...] DAILY ?? Continue taking as prescribed Unchanged Isosorbide Mononitrate (isosorbide mononitrate 60 mg oral tablet, extended release) 1 tab(s) Oral Daily in the morning Continue taking as prescribed Unchanged Lisinopril (lisinopril 20 mg oral tablet) 1 tab(s) Oral Daily Continue taking as prescribed Unchanged prasugrel (prasugrel 10 mg oral tablet) 1 tab(s) Oral Daily Pickup at [facility] #[id number] Continue taking as prescribed Unchanged Pravastatin (pravastatin 20 mg oral tablet) TAKE 1 TABLET BY MOUTH DAILY ?? Continue taking as prescribed Unchanged umeclidinium-vilanterol (Anoro Ellipta 62.5 mcg-25 mcg/ inh inhalation powder) 1 puff(s) Inhalation Daily Continue taking as prescribed Pharmacy Information [facility] #[id number]: [address], [place] [id number] [phone] Test Results Below is a partial list of the most recent Laboratory test results done prior to this discharge. You may have had other tests and procedures not included in this list. Please discuss all test resultswith your provider. Allergies (NKA means No Known Allergies) penicillin Problems Active Problems??(2) Abnormal finding on chest xray?? Positive QuantiFERON-TB Gold test?? Education Materials Below is the list of Educational Leaflet Providered with your Discharge Instructions. Surgery Radial Cath Approach Discharge Instructions?? Procedural Sedation?? Bleeding or Hematoma After Cardiac Catheterization?? Valuables and Belongings I fully understand and agree that [facility] accepts no responsibility for all my [...] ?? Review of Valuable and Belonging List: With patient Date for Pt to Sign Valuables/Belongings: 12/19/22 08:27:00 ?? Other Discharge Information ? Pulmonary Rehab Status?? Pulmonary Rehab Discharge Status?? Respiratory Rate:??14 br/min??Low ? Common Emergency Awareness Tips IS [...] are strongly encouraged to quit. Please call [employer] Link at [phone] or [phone]) or log in to [email or web address] for referrals to smoking cessation programs. ?? 397 Suicide & Crisis Lifeline is available 25/09 if you or someone you know needs to find a reason to keep living. By calling 530 you'll be connected to a skilled, trained counselor at a crisis center in your area. INPATIENT DISCHARGE INSTRUCTIONS SIGNATURE PAGE CLAUDETTE HOLLINS Location:[facility] Registration Date and Time:12/19/2022 06:21 EDT Primary Care Physician: Not on Staff, PCP Attending Physician: Jasmin CARRERA, [facility], I CLAUDETTE HOLLINS, have received the above patient education materials/instructions and have verbalized understanding. If ambulance or transport services are being used I further acknowledge beinggiven a choice of service. ?? If you need to contact me, please call me at this number: . Patient/Overhead Irrigator Name: Patient/Overhead Irrigator Signature: Relationship to Patient: Witness Name/Signature: Date: * Antonella Hebert RN: PERFORM Event Display: Patient Education Leaflets Authored Date: [id number] Surgery Radial Cath Approach Discharge Instructions ?? [...] shower and cleanse the site with soap & water then pat dry. Avoid submersion of site [...] to contact your physician, call 911. ?? * Antonella Hebert RN: PERFORM Event Display: Patient Education Leaflets Authored Date: [id number] Procedural Sedation ?? [address] Procedural Sedation Procedural sedation is medicine to ease discomfort, pain, and anxiety during a procedure. The medicine is often given through an IV (intravenous) line in your arm or hand. In some cases, the medicinemay be taken by mouth or inhaled. While you are under sedation, you will likely be awake. But you may not remember it afterward. Why procedural sedation is used Sedation is used for many types of procedures. The goal is to reduce pain, anxiety, and stressful memories of a procedure. It can help your healthcare provider treat you. For example, having a brokenbone fixed may be easier if you feel relaxed. This type of sedation is used only for short, basic procedures. It's not used for complex surgery. Some procedures that use this type of sedation include: ??? Dental surgery ??? Breast biopsy, to take a sample of breast tissue ??? Endoscopy, to look at gastrointestinal problems ??? Bronchoscopy, tocheck for lung problems ??? Bone or joint realignment, to fix a broken bone or dislocated joint ???Minor foot or skin surgery ??? Electrical cardioversion, to restore a normal heart rhythm ??? Lumbar puncture, to check for neurological disease ?? Risks of procedural sedation Risks and possible side effects include: ??? Headache ??? Nausea and vomiting ??? Bad memories of the procedure ??? Slowed breathing ??? Changes in heart rate and blood pressure (rare) ??? Inhalation of stomach contents into your lungs (rare) Side effects will likely go away shortly after the procedure. Your healthcare team will watch your heart rate and breathing during and after your sedation. This is to help prevent problems. Your own risks may vary. They can be based on your age and your overall health. They also depend onthe type of sedation you are given. Talk with your healthcare provider about the risks that apply most to you. ?? Getting ready for procedural sedation Talk with your provider about how to get ready for your procedure. Tell them about all the medicines you take. This includes lqhr-aag-upejbct medicines, such as ibuprofen. It also includes vitamins, herbs, and other supplements. You may need to stop taking some medicines before the procedure, such as blood thinners and aspirin. If you smoke, you should stop. This is to lessen the chance of a lungproblem. Talk with your healthcare provider if you need help to stop smoking. Tell your provider if you: ??? Have had any problems in the past with sedation or anesthesia ??? Have had any recent changes in your health, such as an infection or fever ??? Are or think you could be Also: ??? Follow any directions you are given for not eating or drinking before procedure. ??? Ask a family member or friend to take you home after the procedure. You can???t drive on the day you have sedation. ??? Don't make any important decisions, such as financial or legal, on the day after youhave sedation. ??? Follow all other instructions from your provider. ?? During your procedural sedation You may have your procedure in a hospital or a clinic. Sedation is done by a trained healthcare provider. In general, you can expect the following: ??? You will be given medicine through an IV line in your arm or hand. Or you may get a shot or take it by mouth. Or you may inhale it through a mask. ??? If you have medicine through an IV, you may feel the effects very quickly. You will start to feel relaxed and drowsy. ??? During the procedure, your heart rate, breathing, and blood pressure will be closely watched. Your breathing and blood pressure may decrease a little. But you will likely notneed help with your breathing. You may get a little extra oxygen. This is done through a mask or some soft plastic prongs under your nose. ??? You will likely be awake the whole time. If you do fall asleep, you should be easy to wake up, if needed. You should feel little or no pain. ??? When your procedure is over, the sedative medicine will be stopped. ?? After your procedural sedation You will start to feel more awake and aware. But you will likely be drowsy for a while afterward. You will be closely watched as you become more alert. You may have a faint memory of the procedure. Or you may not remember it at all. You should be able to go home within 1 to 2 hours after your procedure. Plan to have someone stay with you for a few hours. Side effects, such as headache and nausea, may go away quickly. Tell your healthcare provider if they continue. Don???t drive, operate dangerous machines, or make any important business or personal decisions during the next 24 hours. Be sure to follow all after-care directions. ?? When to call your healthcare provider Have someone call your healthcare provider right away if any of the following occur: ??? Drowsinessthat gets worse ??? Weakness or dizziness that gets worse ??? Repeated vomiting ??? Severe or ongoing pain from the procedure, not relieved by the pain medicine ??? Fever of 100.4?? F (38??C) or higher, or as directed by your healthcare provider ??? New rash ?? Call 911 Have someone call 911 if any of the following occur: ??? Shortness of breath ??? Chest pain ??? Loss of consciousness or you can't be awakened ?? Last Reviewed Date: 2021 ?? The [employer]. All rights reserved. This information is not intended as a substitute for professional medical care. Always follow your healthcare professional's instructions. ?? * Antonella Hebert RN: PERFORM Event Display: Patient Education Leaflets Authored Date: [id number] Bleeding or Hematoma After Cardiac Catheterization ?? [id number] Bleeding or Hematoma After Cardiac Catheterization You recently had cardiac catheterization. A catheter was put into your body through a puncture of an artery in your groin or arm. You now have bleeding from this site. When bleeding occurs, it may drip or spurt from the site. Or it may collect in a lump (hematoma) under the skin. This often requires urgent evaluation in an emergency room. First put direct pressure on the site and call 911 or havesomeone take you to the emergency room. In the emergency room, more pressure will be put on the site to stop bleeding. You may be sent home if the bleeding can be controlled and you are feeling well enough. To prevent repeat bleeding, take some precautions at home. If the bleeding starts again, follow the advice below. Home care For the next 48 hours: ??? Don't do any strenuous activity. ??? Don't climb any stairs if possible ??? Don't lift anythinggreater than 5 pounds. ??? If the puncture site is in your arm or wrist, don't lie on that arm. ???If your puncture site is in the groin, don't??strain at bowel movements. ??? Don't scrub the site when bathing. It's fine to get it wet after your healthcare provider says it's OK, but don't scrub itor massage it. Don't take a tub bath for 3 days after the procedure. ??? Don't drive for the next 48 hours If bleeding happens again, call 911. Take the following steps to stop the bleeding until help arrives: ??? Lie on your back. ??? Place a clean cloth or gauze pad over the puncture site. Then hold firm pressure right on the site. Or have someone else apply firm pressure using the??gauze pad or??washcloth. ??? Keep your arm straight and raised above the level of your heart if the site is in your arm or wrist. If the site is in your groin, have someone else hold pressure on the site. ??? Don't press too hard! If you press too hard, your leg and foot (or arm and hand) will not get blood flow and??the skin under your toenails or fingernails may turn white. The skin should look pink, like the toen ails on your other foot. When you (or someone) presses on the toenail it will turn white, but when you stop pressing on the nail it will turn pink again. This is called capillary refill. If there is someone with you, they can check it. ??? If your toes, foot, or leg start feeling numb, tingly, orcold, ease up on the pressure, you are probably pressing too hard. ??? As soon as emergency care arrives, they will take over your care. ?? Follow-up care Follow up with your healthcare provider, or as advised. Ask your healthcare provider for a contact number to call. ?? Call 911 Call 911 if any of these occur: ??? Chest pain or pressure ??? Any bleeding from the site ??? Feeling weak or faint ??? Trouble breathing ??? Lump (hematoma) is??quickly getting larger ??? Coolness, numbness, tingling, or skin color changes in the leg or arm with the puncture site ?? When to seek medical advice Call your healthcare provider right away??if any of these occur: ??? Increased pain, redness, swelling, or drainage from the puncture site ??? Nausea or vomiting ??? Fever of 100.4??F (38??C) or higher, or as directed by your provider ?? Last Reviewed Date: 2021 ?? 9923-7108 [employer]. All rights reserved. This information is not intended as a substitute for professional medical care. Always follow your healthcare professional's instructions. ?? Patient Care team information Care Team Personnel Name: Karina Salcedo RN Position: [facility] RN Member Role: Primary Care Nurse Name: Not on Staff, PCP Position: [facility] Physician (General Medicine) Member Role: PCP Care Team Related Persons Name: HOUSTON HOLLINS Address: [address] [address]
--- NOTE | 2023-01-20 07:03 | ED_ITS ---
HPI - SOB/Dyspnea General Chief Complaint: Dyspnea Stated Complaint: Diff breathing, known heart problems Time Seen by Provider: 01/20/23 06:30 Source: patient Mode of arrival: ambulatory Limitations: no limitations History of Present Illness HPI Narrative: This is an 82-year-old male was history of coronary disease, hypertension, hyperlipidemia, COPD who presents to the ER with complaints of progressive shortness of breath for the last few months. Patient reports that his medical superintendent felt was secondary to ischemic disease and he has had 3 stents placed since April. He is on dual anti-platelet agents. He reports his shortness of breath did initially improved but for the last month has been quite progressive where he is only able to walk 4-5 steps without excess having to sit down and take a break. He does not have any associated shortness of breath, cough, orthopnea, leg swelling or leg pain, fevers or chills. He denies any black or bloody stools, hematuria, him at emesis. He does have a history of iron deficiency anemia and reports that he is typically compliant with iron supplements but did fine now about 3 days ago. He has never had a blood transfusion before. Related Data Home Medications Medication Instructions Recorded Confirmed albuterol sulfate 90 mcg/actuation 2 puff inhalation Q4H PRN wheezing 01/20/23 01/20/23 aerosol inhaler allopurinol 100 mg tablet 100 mg PO BID 01/20/23 01/20/23 amlodipine 5 mg tablet 5 mg PO DAILY 01/20/23 01/20/23 aspirin 81 mg tablet,delayed 81 mg PO DAILY 01/20/23 01/20/23 release glipizide 2.5 mg tablet, extended 2.5 mg PO DAILY 01/20/23 01/20/23 release 24 hr isosorbide mononitrate 30 mg 30 mg PO DAILY 01/20/23 01/20/23 tablet,extended release 24 hr lisinopril 20 mg tablet 20 mg PO DAILY 01/20/23 01/20/23 prasugrel 10 mg tablet 10 mg PO DAILY 01/20/23 01/20/23 pravastatin 20 mg tablet 20 mg PO DAILY 01/20/23 01/20/23 umeclidinium 62.5 mcg-vilanterol 1 inh inhalation DAILY 01/20/23 01/20/23 25 mcg/actuation powdr for inhalation (Anoro Ellipta) Allergies Allergy/AdvReac Type Severity Reaction Status Date / Time Penicillins [PENICILLINS] Allergy Unknown UNKNOWN Verified 01/20/23 05:37 Review of Systems 2 Review of Systems: Yes all other systems are reviewed and are negative Constitutional: Constitutional: Reports no additional constitutional complaints, Denies body ache(s), Denies chills, Denies fever(s), Denies headache(s) and Denies weakness Eyes: Eyes: Reports no additional eye complaints and Denies change in vision ENT: Reports system reviewed and no additional complaints, except as documented, Denies dizziness, Denies headache(s), Denies nasal congestion, Denies nasal discharge and Denies neck pain Cardiovascular: Cardiovascular: Reports no additional cardiovascular complaints, Denies chest pain, Denies leg edema and Reports dyspnea Respiratory: Respiratory: Reports no additional respiratory complaints, Denies cough and Reports dyspnea Gastrointestinal: Gastrointestinal: Reports no additional gastrointestinal complaints, Denies abdominal pain, Denies diarrhea, Denies nausea and Denies vomiting Genitourinary: Genitourinary: Denies urinary incontinence Musculoskeletal: Musculoskeletal: Reports no additional musculoskeletal complaints, Denies back pain, Denies arthralgias, Denies joint swelling, Denies neck pain, Denies numbness and Denies tingling Integumentary/Breasts: Skin/Breast: Reports system reviewed and no additional complaints, except as docu and Denies rash Neurologic: Reports system reviewed and no additional complaints, except as documented, Denies Abnormal speech present, Denies dizziness, Denies headache(s), Denies numbness, Denies tingling and Denies weakness [facility] Past Medical History Attestation statement: The following information was validated with the patient. Source: old records reviewed and nursing notes reviewed Social History Social History Advance Directives: No Advance Directives Information Provided: Yes Physical Exam 2 Vital Signs: Vital Signs: Last Vital Signs Temp 97.8 F 01/20/23 09:57 Pulse 78 01/20/23 09:57 Resp 16 01/20/23 09:57 BP 136/70 01/20/23 09:57 Pulse Ox 100 01/20/23 09:35 O2 Del Method Room Air 01/20/23 09:35 BMI result Body Mass Index 24.8 Const: General: cooperative, healthy appearing, comfortable and no acute distress Orientation/consciousness: patient oriented x3 Limitations: no limitations HEENT: Head: Yes normal to inspection Ears: hearing grossly normal bilaterally General nose exam: Normal external nose present Face and sinus: Yes normal facial exam Mouth: Normal oral and palatal mucosa present Throat: Yes posterior oropharynx normal Eyes: General: appearance normal, both eyes and all related structures C onjunctivae: conjunctival abnormal (pale bilaterally ) Pupils: Equal, round and reactive pupils present Neck: Neck: Yes normal visual inspection Chest: Chest palpation & inspection: normal inspection of the chest Resp: Effort & Inspection: normal respiratory effort Auscultation: clear to auscultation bilaterally Cardio: Rate: regular rate Rhythm: regular rhythm Peripheral pulses: P eripheral pulses 2+ throughout GI: Inspection: Yes normal to inspection Palpation (GI): Soft to palpation and nontender Auscultation: normal bowel sounds Back/Spine/Pelvis: Thoracic/Lumbar Spine: thoracic and lumbar spine normal to inspection Skin: General skin exam: no rashes or lesions noted Neuro: General: patient oriented x3, no focal motor deficits and normal sensation to monofilament Cranial nerves: Yes Equal, round and reactive pupils present Cognition (Neuro): normal cognition Speech: No Abnormal speech present Gait exam (Neuro): Normal gait present Motor exam (neuro): 5/5 motor strength present throughout Extrem: General: Yes normal to inspection, Yes no pedal edema and Yes no calf tenderness Medications Administered Discontinued Medications Generic Name Dose Route Start Last Admin Trade Name Freq PRN Reason Stop Dose Admin Sodium Chloride 100 mls @ 100 mls/hr 01/20/23 06:50 01/20/23 09:49 Ns IV 01/20/23 07:49 100 mls/hr ONCE ONE Administration Medical Decision Making Medical Decision Making [facility] Narrative: This is an 82-year-old male was history of coronary disease, hypertension, hyperlipidemia, COPD who presents to the ER with complaints of progressive shortness of breath for the last few months.? Patient reports that his medical superintendent felt was secondary to ischemic disease and he has had 3 stents placed since April.? He is on dual anti-platelet agents.? He reports his shortness of breath did initially improved but for the last month has been quite progressive where he is only able to walk 4-5 steps without excess having to sit down and take a break.? He does not have any associated shortness of breath, cough, orthopnea, leg swelling or leg pain, fevers or chills.? He denies any black or bloody stools, hematuria, him at emesis.? He does have a history of iron deficiency anemia and reports that he is typically compliant with iron supplements but did fine now about 3 days ago.? He has never had a blood transfusion before. Will need labs, chest x-ray, EKG, COVID/flu/RSV test 0700-I did review the initial labs are ordered by nursing. They showed a microcytic anemia. No previous to compare to with the exception of labs from 2019. It does appear the patient may have symptomatic anemia. Therefore I will order a type and screen, occult stool, orthostatics vital signs. The patient was consented for 1 unit of PRBC. May require admission for further evaluation Differential Diagnosis Differential Diagnoses: The differential diagnosis associated with the presentation includes symptomatic anemia ACS-no exertional CP, trop flats CHF PE-no clinical findings concerning for DVT, no hypoxia or tachypnea PNA Admission/Observation Consideration of admission/observation: Escalation of care including admission/observation considered Symptomatic anemia with positive orthostatics requiring PRBC infusion and admission Consult Healthcare Provider Management of the patient was discussed with: Hospitalist Spoke to Dr. Nj who accepted admission Lab Data MDM Lab Attestation statement: I reviewed the patient's lab results. Microcytic anemia, CKD, chronic thrombocytopenia 01/20/23 05:52 01/20/23 05:52 Labs: Lab Results 01/20/23 01/20/23 Range/Units 05:52 07:33 WBC 5.6 (4.8-10.8) X10*3/uL RBC 2.74 L (4.60-5.80) X10*6/uL Hgb 7.2 L (14.0-18.0) g/dl Hct 21.1 L (42.0-52.0) % MCV 77.0 L (80.0-98.0) fL MCH 26.3 L (27.0-33.0) pg MCHC 34.1 (31.0-36.0) g/dl RDW 15.4 (11.0-16.0) % Plt Count 155 L (160-400) X10*3/uL MPV 9.7 (9.4-12.4) fL Immature Gran % (Auto) 0.4 (0.0-0.4) % Neut % (Auto) 49.7 (45-73) % Lymph % (Auto) 35.5 (20-40) % [place] % (Auto) 10.3 (2-11) % Eos % (Auto) 3.0 (0-4) % Baso % (Auto) 1.1 (0-2) % Lymph # (Auto) 2.0 (1.2-4.9) X10*3/uL [place] # (Auto) 0.6 (0.1-1.2) X10*3/uL Eos # (Auto) 0.2 (0.0-0.4) X10*3/uL Baso # (Auto) 0.1 (0.0-0.2) X10*3/uL Abs Immat Gran (auto) 0.02 (0.00-0.03) X10*3/uL Absolute Neuts (auto) 2.8 (2.0-8.3) x10*3/uL Absolute Nucleated RBC 0.000 (0.0-0.012) X10*3/uL Nucleated RBC % (auto) 0.0 (0.0-0.2) /100WBC PT 12.1 (11.1-13.3) SEC INR 1.0 (0.9-1.1) APTT 25.9 L (26.0-36.4) SEC Sodium 139 (135-145) mmol/L Potassium 4.2 (3.3-5.1) mmol/L Chloride 111 H (96-108) mmol/L Carbon Dioxide 19 L (22-29) mmol/L Anion Gap 13 (12-20) BUN 23 H (9-16) mg/dL Creatinine 1.77 H (0.5-1.4) mg/dL Estim Creat Clear Calc 36.9 Estimated GFR 37 Random Glucose 89 (60-115) mg/dL Calcium 9.0 (8.4-10.2) mg/dL Iron 24 L (45-160) mcg/dL TIBC 315 (228-428) mcg/dL % Saturation 8 L (15-50) % Unsat Iron Binding 291 ug/dL Total Bilirubin 0.2 (0.0-1.0) mg/dL AST 21 (5-37) U/L ALT 11 (0-40) U/L Alkaline Phosphatase 42 (39-117) U/L Lactate Dehydrogenase 212 (118-273) U/L Troponin I High Sens 13.7 (<3.5-35.0) ng/L B-Natriuretic Peptide 43 (<100) pg/mL Total Protein 7.1 (6.5-8.0) g/dL Albumin 4.0 (3.5-5.0) g/dL Stool Occult Blood NEGATIVE (NEGATIVE) Influenza Type A (PCR) NEGATIVE (Negative) Influenza Type B (PCR) NEGATIVE (Negative) RSV RNA Qual (PCR) NEGATIVE (Negative) SARS-CoV-2 RNA (RT-PCR) NEGATIVE (Negative) Blood Type A Positive Antibody Screen NEGATIVE Crossmatch See Detail Independent Interpretation I performed an independent interpretation of an: EKG and Plain X-Ray Interpretation: I independently reviewed the chest x-ray and agree with Radiology report I independently reviewed the EKG which shows normal sinus rhythm with a rate of 76, normal VA, normal QRS, normal QT, ST depressions leads V4 through V6 with no previous for comparison Radiology Impression Discussion of test interpretation with radiology: I have reviewed the radiologist's reading. Radiologist Impression: [place] [id number] XRay Report Signed Patient: Feroz Parsons MR#: [id number] : 1940 Acct:[id number] Age/Sex: 82 / M ADM Date: 01/20/23 [facility]: Ordering Physician: Generic ED Physician Date of Service: 01/20/23 Procedure(s): XR chest 1V Accession Number(s): [id number] cc: Generic ED Physician; Physician,Unknown ~ EXAMINATION: XR CHEST CLINICAL INFORMATION: Shortness of breath. COMPARISON: None available. TECHNIQUE: Frontal view of the chest was obtained. FINDINGS: No significant abnormality is noted involving the heart, lungs, mediastinum, bony thorax or soft tissues. XR/XR chest 1V IMPRESSION: No active cardiopulmonary disease. Critical Care Time Critical Care Time Critical Care Time: Yes Total Critical Care Time: 60 Attestation: Admission for symptomatic anemia requiring blood transfusion, discussion with hospitalist for admission Discharge Plan Discharge Clinical Impression: Symptomatic anemia Patient Disposition: Admitted As Inpatient
[2023-01-20 07:57] LABS: OBS Int Ctl Valid YES; OBS1 NEGATIVE (NEGATIVE)
[2023-01-20 08:09] LABS: B Type Natriuretic Peptide 43 pg/mL (<100)
[2023-01-20 08:32] LABS: Influenza A PCR NEGATIVE (Negative); Influenza B PCR NEGATIVE (Negative); Resp Syncy Virus RNA Qual PCR NEGATIVE (Negative); SARS COV2 PCR INHOUSE NEGATIVE (Negative)
--- NOTE | 2023-01-20 09:39 | PHA.MEDREC ---
Pharmacy Consult ? Medication Reconciliation Pharmacy has completed the medication reconciliation. Spoke to patient to confirm meds. Patient takes 30mg isosorbide.
--- NOTE | 2023-01-20 09:46 | PC.NURSE ---
pt is alert and oriented, skin appropriate for ethnicity, but slightly pale, respirations even and unlabored, ls clear, pt denies feeling sob and denies any pain at this time, ns on the monitor
[2023-01-20 10:55] LABS: Iron 24 mcg/dL (45-160); Lactate Dehydrogenase 212 U/L (118-273); Percent Iron Saturation 8 % (15-50); Total Iron Binding Capacity 315 mcg/dL (228-428); Unsaturated Iron Binding 291 ug/dL
--- NOTE | 2023-01-20 11:06 | P.HPHOSP_ITS ---
<Statement entered by Patricia Moffett MD - 01/20/23 15:38> the patient was seen and evaluated with MEAGAN Ngo. I agree with her note, assessment and plan with the following. In summary, An 82 male w PMH of CAD s\p PCI recently, HTN, DM, HLD who presents with Dyspnea and abnormal blood work as he was found to be anemic. Symptomatic anemia from likely blood loss give DAP Transfuse blood PPI GI and cardiology consults Follow H&H Rest of evaluations by PA note. History of Present Illness Date of Service: 01/20/23 Attending physician on admission: Patricia Mofeftt Chief Complaint: shortness of breath This is an 82 year old male with history of CAD on DAPT who was sent to the ED after outpatient labs revealed anemia. He has had shortness of breath for the past several weeks. He had his most recent stent placed in mid-december and it was thought that his shortness of would improve after the procedure. His chest pain has improved however his shortness has persisted. He reports shortness of breath with minimal exertion. He has no associated dizziness a. Due to persistent shortness of breath he had outpatient labs obtained on and the results indicated worsening anemia and he was recommended to come to the emergency department for further workup. He denies any melena or bright red blood per rectum no hematemesis. Last colonoscopy approximately 10 years ago was reportedly unremarkable. Does not recall being told of previous anemia however records from [facility] indicate anemia dating back to at least April of this year. emergency department his H-H was 7.2/21 with associated thrombocytopenia with a platelet level of 155. remainder of his workup feeling a unremarkable. Troponin and BNP as well as chest x-ray were obtained and were negative. Orthostatic blood pressures were obtained and were noted to be positive although patient denies any dizziness upon standing. One unit of blood was ordered and transfusion was initiated in the emergency department and the decision was made to admit him to the hospital for further evaluation of symptomatic anemia. Review of Systems 2 Review of Systems: Yes all other systems are reviewed and are negative Constitutional: Constitutional: Denies chills and Denies fever(s) Cardiovascular: Cardiovascular: Denies chest pain, Denies palpitations and Reports dyspnea on exertion Respiratory: Respiratory: Reports dyspnea on exertion Gastrointestinal: Gastrointestinal: Denies abdominal pain Endocrine: Endocrine: Denies palpitations [facility] Medical History (Updated 01/20/23 @ 11:22 by MEAGAN Reynoso) CKD (chronic kidney disease) Asthma Diabetes CAD (coronary artery disease) Functional capacity: independent ambulation Pertinent family history: Heart disease Surgical History (Updated 01/20/23 @ 11:22 by MEAGAN Reynoso) Stented coronary artery Social History (Updated 01/20/23 @ 11:24 by MEAGAN Reynoso) Alcohol intake: current Patient Tobacco Use Status: Former Tobacco user Quit Date: remote history >30 years Advance Directives: No Advance Directives Information Provided: Yes Nutrition Risks: No Nutritional Risk Meds Allergies Allergy/AdvReac Type Severity Reaction Status Date / Time Penicillins [PENICILLINS] Allergy Unknown UNKNOWN Verified 01/20/23 05:37 Active Medications: Current Medications Acetaminophen (Acetaminophen 325 Mg Tablet) 650 mg PO Q6H PRN PRN Reason: Pain, Mild (Pain Scale 1-3) Sodium Chloride (0.9 % Sodium Chloride Flush 3 Ml Syringe) 3 ml [facility] Medications Medication Instructions Recorded Confirmed Last Taken Type albuterol sulfate 90 mcg/actuation 2 puff inhalation Q4H PRN wheezing 01/20/23 01/20/23 Unknown History aerosol inhaler allopurinol 100 mg tablet 100 mg PO BID 01/20/23 01/20/23 01/19/23 History amlodipine 5 mg tablet 5 mg PO DAILY 01/20/23 01/20/23 01/19/23 History aspirin 81 mg tablet,delayed 81 mg PO DAILY 01/20/23 01/20/23 01/19/23 History release glipizide 2.5 mg tablet, extended 2.5 mg PO DAILY 01/20/23 01/20/23 01/19/23 History release 24 hr isosorbide mononitrate 30 mg 30 mg PO DAILY 01/20/23 01/20/23 01/19/23 History tablet,extended release 24 hr lisinopril 20 mg tablet 20 mg PO DAILY 01/20/23 01/20/23 01/19/23 History prasugrel 10 mg tablet 10 mg PO DAILY 01/20/23 01/20/23 01/19/23 History pravastatin 20 mg tablet 20 mg PO DAILY 01/20/23 01/20/2301/19/23 History umeclidinium 62.5 mcg-vilanterol 1 inh inhalation DAILY 01/20/23 01/20/23 01/19/23 History 25 mcg/actuation powdr for inhalation (Anoro Ellipta) Physical Exam 2 Vital Signs and Narrative: Vital Signs: Last Vital Signs Temp 97.8 F 01/20/23 09:57 Pulse 78 01/20/23 09:57 Resp 16 01/20/23 09:57 BP 136/70 01/20/23 09:57 Pulse Ox 100 01/20/23 09:35 O2 Del Method Room Air 01/20/23 09:35 BMI result Body Mass Index 24.8 Const: General: cooperative, comfortable, no acute distress, alert and awake Nutritional Appearance: average body habitus Orientation/consciousness: p atient oriented x3 Resp: Effort & Inspection: normal respiratory effort, able to speak in complete sentences, no respiratory distress and no use of accessory muscles A uscultation: clear to auscultation bilaterally Cardio: Rate: regular rate GI: Inspection: No distended Palpation (GI): Soft to palpation and nontender Neuro: General: patient oriented x3, moves all extremities and CN's II-XI intact bilaterally Extrem: General: Yes no pedal edema Results Labs 01/20/23 05:52 01/20/23 05:52 Labs: Laboratory Results - last 24 hr 01/20/23 01/20/23 05:52 07:33 MCV 77.0 L MCH 26.3 L MCHC 34.1 RDW 15.4 Plt Count 155 L MPV 9.7 Immature Gran % (Auto) 0.4 Neut % (Auto) 49.7 Lymph % (Auto) 35.5 [place] % (Auto) 10.3 Eos % (Auto) 3.0 Baso % (Auto) 1.1 Lymph # (Auto) 2.0 [place] # (Auto) 0.6 Eos # (Auto) 0.2 Baso # (Auto) 0.1 Abs Immat Gran (auto) 0.02 Absolute Neuts (auto) 2.8 Absolute Nucleated RBC 0.000 Nucleated RBC % (auto) 0.0 PT 12.1 INR 1.0 APTT 25.9 L Anion Gap 13 Estim Creat Clear Calc 36.9 Estimated GFR 37 Random Glucose 89 Calcium 9.0 Iron 24 L TIBC 315 % Saturation 8 L Unsat Iron Binding 291 Total Bilirubin 0.2 AST 21 ALT 11 Alkaline Phosphatase 42 Lactate Dehydrogenase 212 B-Natriuretic Peptide 43 Total Protein 7.1 Albumin 4.0 Stool Occult Blood NEGATIVE Influenza Type A (PCR) NEGATIVE Influenza Type B (PCR) NEGATIVE RSV RNA Qual (PCR) NEGATIVE SARS-CoV-2 RNA (RT-PCR) NEGATIVE Blood Type A Positive Antibody Screen NEGATIVE Crossmatch See Detail Imaging Radiologist's Impressions: Impressions Chest X-Ray 01/20/23 05:55 IMPRESSION: No active cardiopulmonary disease. Assessment and Plan (1) Symptomatic anemia: Status: Acute Plan This is an 82-year-old male with history of CAD s/p stent to LAD and most recently KAROLINA to mid RCA at [facility] 12/19/22, DM, asthma, HTN with persistent MUNOZ who was sent to the ED for evaluation of anemia discovered on outpatient lab draw. acute on chronic anemia likely due to iron deficiency in the setting of DAPT most recent labs from [facility] 04/2022 8.9/26.2, today 7./; orthostatics + 1 unit of blood transfusing now, 01/20 iron studies pending also has CKD which could be playing a role follow up CBC in am no evidence of active bleeding given recent stent placement need to continue DAPT with aspirin and prasgrel for now - will consult cardiology for further guidance GI consult pending CAD with h/o multiple stents trop negative, no chest pain continue asa, statin, imdur DM hold glipizide SSI, POCs, ADA diet HTN will continue lisinopril for now hold norvasc to avoid hypotension although no active bleeding; can resume if BP remains stable CKD3 per records from [facility], last SCr from 04/2022 was 1.7 - appears to be at baseline follow BMP asthma, unspecified no acute exacerbation continue home inhalers dvt ppx - no chemoprophylaxis due to anemia and DAPT code status: DNR/DNI attending - Dr. Moffett patient will likely require two midnight stay in the hospital for management of to symptomatic anemia requiring blood transfusion as well as specialist evaluation in a patient with multiple comorbidities including CAD on DAPT putting him at risk for severe bleeding and requiring close monitoring Quality Stroke Does the patient have a stroke diagnosis?: No VTE Prior VTE?: No VTE Risk Level:: Medical - moderate - high VTE Device Contraindication: N/A - Device Ordered VTE Drug Contraindication: Treatment Not Indicated
[2023-01-20 11:14] LABS: Ferritin 15 ng/mL (20-250)
--- NOTE | 2023-01-20 11:53 | PC.NURSE ---
Patient resting on stretcher, respirations even and unlabored, skin pwd, alert and oriented x4. Offers no complaints at this time, given nilam alex
[2023-01-20 12:01] LABS: Glucose, Whole Blood 112 mg/dL (60-115)
[2023-01-20 16:36] LABS: Glucose, Whole Blood 128 mg/dL (60-115)
--- NOTE | 2023-01-20 18:39 | MHC.SHP ---
Pre-Procedural Eval Section A Date of Service: 01/22/23 The patient is an INPATIENT: Yes The History & Physical has been completed within 30 days and I have reviewed it.: Yes Section B Chief Complaint: Symptomatic anemia Allergies: Allergies Allergy/AdvReac Type Severity Reaction Status Date / Time Penicillins [PENICILLINS] Allergy Unknown UNKNOWN Verified 01/20/23 05:37 Plan I have reviewed the history and physical and performed a pertinent physical examination on my patient. No changes have occurred unless specified. Time Spent With Patient Time: Total time managing care of this patient today ____ minutes.
--- NOTE | 2023-01-20 18:39 | PM.EVENT ---
Event Note Date of Service: 01/20/23 Event Note: GI Consult-Full note dictated Imp: Significant and symptomatic iron deficiency anemia in an 82 yo male on chronic blood thinners in relation to CAD with stent placements, including one just one month ago. He denies any localizing GI symptoms and his stool was Hemoccult negative today. He has had previous colonoscopies but they were over 5-6 years ago at [place]. Diff diagnosis includes GI neoplasm, AVM's, gastritis, PUD, celiac disease with Iron malabsorption Rec: EGD and Colonoscopy as an inpatient after adequate transfusion with correction of anemia and consultation for Cardiology clearance. Hold aspirin and Prasugrel on the morning of the procedures. The most important thing to exclude would be a neoplasm which we can biopsy. If we just find polyps or AVM's, then those can removed or treated, respectively, at a later date when he is off the blood thinner. Findings such as gastritis or PUD can be treated medically with PPI's. He can be started on oral Iron after discharge, but he might benefit from an Iron infusiion while an inpatient to quickly build up his Iron stores. Full consent has been obtained from him for the GI procedures, including risks of bleeding and perforation. D/W him in detail and he is comfortable with the plan. Thanks Time Spent With Patient Time: Total time managing care of this patient today ____ minutes.
--- NOTE | 2023-01-20 19:48 | MHC.EDTECH ---
This tech took over care of patient at 1900, hourly rounds and vitals completed. Patient has a bed assigned at this time waiting for report to be given.
[2023-01-20 22:12] LABS: Glucose, Whole Blood 115 mg/dL (60-115)
--- NOTE | 2023-01-21 01:20 | CONS_ITS ---
DATE OF SERVICE: 01/20/2023 REASON FOR CONSULTATION: Iron-deficiency anemia. HISTORY OF PRESENT ILLNESS: This has been obtained from the patient and his medical record. The patient is an 82-year-old male who came to the ER today for evaluation of anemia and shortness of breath. His past history is notable for coronary artery disease with a drug-eluting stent placed 1 month ago at [facility]. He also had 2 coronary artery stents placed in May of this year as well. He denies any history of [place], although he does describe shortness of breath that was felt to be in relation to the coronary artery disease, although the placement of the stents, including the most recent one really did not help things in that regard. In regard to the anemia, he has not noticed any signs of bleeding. He denies any melena nor hematochezia. He describes his bowel movements have been regular. He enjoys a good appetite without any chronic heartburn or dysphagia. He denies any abdominal pain, jaundice, nor weight loss. He denies any known family history of colorectal cancer. He describes 2 or 3 previous colonoscopies at [facility] with Dr. Sam, although the most recent one was at least 6 or 7 years ago by his description. He reports that the colonoscopies have been negative in regard to polyps as far as he can recall.. He thinks he had an upper endoscopy many years ago which was also nonrevealing as far as he can recall. Aside from the current aspirin, he is not using any significant amounts of NSAIDs. He does not smoke. He describes a habit of 1 beer or 1/2 of a nip daily on a longstanding basis, but no significant alcohol intake in general. Since being in the ER, he has received 1 unit of blood. He describes that he is currently comfortable, but has not yet tried walking. MEDICATIONS AT HOME: Included albuterol inhaler p.r.n., allopurinol, amlodipine, aspirin 81 mg, glipizide, isosorbide, lisinopril, prasugrel, pravastatin, and Anoro Ellipta. His medications here in the hospital include acetaminophen p.r.n., albuterol inhaler p.r.n., allopurinol, aspirin 81 mg, sliding scale insulin p.r.n., isosorbide, lisinopril, prasugrel, pravastatin, and Anoro Ellipta. PAST MEDICAL HISTORY: Coronary artery disease with stents as above. Bronchitis and asthma. Tce-[id number] diabetes mellitus. He denies a history of [place], stroke, nor kidney disease. He has hyperlipidemia. He describes ankle surgery many years ago and a left inguinal hernia. Hypertension. FAMILY HISTORY: Noncontributory. REVIEW OF SYSTEMS: CONSTITUTIONAL: He has been feeling somewhat tired. Appetite is good. SKIN: Without rash. No pruritus. CARDIAC: No chest pain. PULMONARY: No coughing or hemoptysis. GI: As above. URINARY: No dysuria. No hematuria. NEUROLOGIC: No headache or seizures. PHYSICAL EXAMINATION: GENERAL: The patient is a pleasant, alert, comfortable-appearing male. HEENT: Anicteric sclerae. Moist mucous membranes. NECK: Supple. CHEST: Clear. CARDIAC: Normal S1, S2. ABDOMEN: Soft, nondistended, nontender without mass. NEUROLOGIC: He is alert and oriented. LABORATORIES: Hemoccult negative stool. White blood cell count of 5.6, hemoglobin 7.2, MCV 77, and platelets 155,000. PT 12.1, INR 1.0. Normal electrolytes. BUN 23, creatinine 1.8. Iron 24, iron saturation 8%, and ferritin 15. Normal liver profile. Albumin 4.0. Influenza, RSV, and COVID swabs were all negative. Chest x-ray is described as normal. IMPRESSION AND PLAN: Given the patient's presentation with a significant microcytic anemia and iron deficiency, I would recommend a GI workup to exclude a chronic GI source of blood loss despite the hemoccult negative stool specimen. I did review with the patient that obviously it would be important to rule out any serious problems such as upper or lower GI neoplasm despite previously negative endoscopy and colonoscopy since they were at least 5 or 6 years ago. Other possible etiologies of the anemia from a GI standpoint would be that of angiodysplasias, silent ulcer disease or gastritis, and malabsorption from celiac disease. I did advise the patient I think it would be important to do these procedures sooner rather than later given the significant anemia and his continued need for blood thinners. As such, I would recommend that it be done while he is an inpatient after he has been transfused appropriately. Given the recent stent placement, we cannot stop the aspirin nor prasugrel for any length of time, and I would therefore just hold them on the morning of the procedure. If a significant lesion is found, I think biopsies could be obtained safely nonetheless. If just polyps or AVM's are found, then we could decide at that point whether we want to remove or treat them, or have him come back at a different time for those. However, I do think it would be important to exclude any serious problems such as GI neoplasm before discharge since otherwise if he continues the blood thinners he would develop recurrent anemia and symptoms again. Full consent has been obtained from him for both the upper endoscopy and colonoscopy, including risks of bleeding and perforation. In the meantime, it would be important to follow his blood count and transfuse him as needed. I have placed his aspirin on hold for the morning of the procedure. His prasugrel should be held that morning as well. Please obtain a cardiology consult over the weekend to obtain clearance prior to the procedure. This has all been discussed in detail with the patient and he is comfortable with the plan. Thank you for the consultation. MD ELAINE Valencia/CRESENCIO / [id number] MTDD
[2023-01-21] MEDS: 0.9 % Sodium Chloride Flush 3 ML SYRINGE IVFLUSH ×4 (01:22→21:38)
[2023-01-21 03:08] VITALS: BP 115/56; PULSE 79; RESP 17; TEMP 36.7; O2SAT 98
[2023-01-21 06:37] LABS: Anion Gap 11 (12-20); Blood Urea Nitrogen 19 mg/dL (9-16); Calcium 9.2 mg/dL (8.4-10.2); Carbon Dioxide 23 mmol/L (22-29); Chloride 108 mmol/L (96-108); Creatinine Clr Calc Pharmacy 35.9; Estimated Glomerular Filt Rate 36; Glucose Random 123 mg/dL (60-115); Hematocrit 25.2 % (42.0-52.0); Hemoglobin 8.4 g/dl (14.0-18.0); Mean Corpuscular HGB Conc 33.3 g/dl (31.0-36.0); Mean Corpuscular Hemoglobin 26.5 pg (27.0-33.0); Mean Corpuscular Volume 79.5 fL (80.0-98.0); Mean Platelet Volume 10.5 fL (9.4-12.4); Platelet Count 147 X10*3/uL (160-400); Potassium 4.4 mmol/L (3.3-5.1); Red Blood Count 3.17 X10*6/uL (4.60-5.80); Red Cell Distribution Width 15.9 % (11.0-16.0); Sodium 138 mmol/L (135-145)
[2023-01-21 07:21] VITALS: BP 113/61; PULSE 74; RESP 20; TEMP 37.1; O2SAT 97
[2023-01-21 07:58] LABS: Glucose, Whole Blood 134 mg/dL (60-115)
[2023-01-21] MEDS: Isosorbide Mononitrate 30 MG TAB.ER.24H PO (08:54)
[2023-01-21] MEDS: lisinopriL 20 MG TABLET PO (08:54)
[2023-01-21] MEDS: Pravastatin Sodium 20 MG TABLET PO (08:54)
[2023-01-21] MEDS: Aspirin Enteric Coated 81 MG TABLET.DR PO (08:54)
[2023-01-21] MEDS: allopurinoL 100 MG TABLET PO ×2 (08:55→21:37)
--- NOTE | 2023-01-21 10:53 | P.CONCA_ITS ---
History of Present Illness History of Present Illness Date of Service: 01/21/23 Chief complaint: Symptomatic anemia Narrative: This is a cardiology consultation regarding anti-platelet management as well as risk stratification for GI procedures. Patient has a history of cardiomyopathy ejection fraction 25-30% range with wall motion abnormalities from prior echocardiogram at [facility] in July this year. Due to complaints of chest discomfort and shortness of breath, he underwent cardiac catheterization December of this year with right coronary artery stenting. Otherwise, had mild disease in the left main, lad, patent prior LAD stents and mild diffuse circumflex disease. Patient states that his chest discomfort got better but he still continued to have shortness of breath. 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 After arrival, he was found to have a hemoglobin of 7.2 and then admitted to hospital. The previous hemoglobin from April of this year in [facility] is 8.9. Hence that may be his baseline. Any case, because of concerning shortness of breath he was admitted for inpatient care. Patient states that he got blood transfusion and then he felt much better. Now he is able to walk short distances in the room and feels okay. No angina. He was on aspirin plus prasugrel after the stent. Review of Systems 2 Review of Systems: Yes all other systems are reviewed and are negative Constitutional: Constitutional: Reports as per HPI and Reports no additional constitutional complaints Eyes: Eyes: Reports as per HPI and Denies no additional eye complaints ENT: Denies system reviewed and no additional complaints, except as documented and Reports as per HPI Cardiovascular: Cardiovascular: Reports as per HPI, Reports no additional cardiovascular complaints, Denies acrocyanosis, Denies cool extremities, Denies chest pain, Denies leg edema, Denies lightheadedness, Denies palpitations and Reports dyspnea Respiratory: Respiratory: Reports as per HPI, Denies no additional respiratory complaints and Reports dyspnea Gastrointestinal: Gastrointestinal: Reports as per HPI and Denies no additional gastrointestinal complaints Genitourinary: Genitourinary: Reports no additional male genitourinary complaints and Reports as per HPI Musculoskeletal: Musculoskeletal: Reports no additional musculoskeletal complaints and Reports as per HPI Integumentary/Breasts: Skin/Breast: Reports system reviewed and no additional complaints, except as docu Neurologic: Reports system reviewed and no additional complaints, except as documented and Reports as per HPI Psychiatric: Psychiatric: Reports no additional psychiatric complaints and Reports as per HPI Endocrine: Endocrine: Reports no additional endocrine complaints, Reports as per HPI and Denies palpitations Hematologic/Lymphatic: Hematologic/Lymphatic: Reports no additional hematologic/lymphatic complaints and Reports as per HPI Allergic/Immunologic: Allergic/Immunologic: Reports no additional allergic/immunologic complaints and Reports as per HPI [facility] Past Medical History Medical History (Updated 01/21/23 @ 11:03 by Baldev Gustafson MD) CKD (chronic kidney disease) Asthma Diabetes CAD (coronary artery disease) Functional capacity: independent ambulation Family History Pertinent family history: No pertinent family history. Surgical History Surgical History (Updated 01/20/23 @ 11:22 by MEAGAN Reynoso) Stented coronary artery Social History Social History (Updated 01/20/23 @ 11:24 by MEAGAN Reynoso) Alcohol intake: current Patient Tobacco Use Status: Former Tobacco user Quit Date: remote history >30 years Meds Allergies Allergy/AdvReac Type Severity Reaction Status Date / Time Penicillins [PENICILLINS] Allergy Unknown UNKNOWN Verified 01/20/23 05:37 Active Medications: Current Medications Acetaminophen (Acetaminophen 325 Mg Tablet) 650 mg PO Q6H PRN PRN Reason: Pain, Mild (Pain Scale 1-3) Albuterol Sulfate (Albuterol Sulfate 90 Mcg 8 Gm Inhaler) 2 puff INHALE Q4H PRN PRN Reason: wheezing Allopurinol (Allopurinol 100 Mg Tablet) 100 mg PO BID [facility] Last Admin: 01/21/23 08:55 Dose: 100 mg Aspirin (Aspirin Enteric Coated 81 Mg Tablet.) 81 mg PO DAILY [facility] Last Admin: 01/21/23 08:54 Dose: 81 mg Bisacodyl (Bisacodyl 5 Mg Tablet.) 10 mg PO ONCE ONE Stop: 01/21/23 13:01 Bisacodyl (Bisacodyl 5 Mg Tablet.) 10 mg PO ONCE ONE Stop: 01/21/23 19:01 Dextrose (Dextrose 50 % 25 Gm/50 Ml Syringe) 25 gm IVPUSH Q15M PRN; Protocol PRN Reason: per Hypoglycemia Standing Ord. Glucose (Glucose Gel 15 Gm Gel..Gram.) 15 gm PO Q15M PRN; Protocol PRN Reason: per Hypoglycemia Standing Ord. Insulin Human Lispro (Insulin Lispro 100 Unit/Ml 3 Ml Vial) 0 unit SUBCUT QIDACHS [facility]; Protocol Last Admin: 01/21/23 08:30 Dose: Not Given Isosorbide Mononitrate (Isosorbide Mononitrate 30 Mg Tab.Er.24h) 30 mg PO DAILY [facility]; Protocol Last Admin: 01/21/23 08:54 Dose: 30 mg Lisinopril (Lisinopril 20 Mg Tablet) 20 mg PO DAILY [facility]; Protocol Last Admin: 01/21/23 08:54 Dose: 20 mg Non-Formulary Medication (Umeclidinium-Vilanterol [Anoro Ellipta]) 1 inhalation INHALE DAILY [facility] Non-Formulary Medication (Prasugrel) 10 mg PO DAILY [facility] Polyethylene Glycol/Electrolytes (Peg 3350/Na Sulf,Bicarb,Cl/Kcl 4,000 Ml Soln.Recon) 240 ml PO Q10M [facility] Stop: 01/21/23 17:41 Pravastatin Sodium (Pravastatin Sodium 20 Mg Tablet) 20 mg PO DAILY [facility] Last Admin: 01/21/23 08:54 Dose: 20 mg Sodium Biphosphate/Sodium Phosphate (Sodium Phosphate,[place]-Dibasic 133 Ml Enema) 133 ml [place] ONCE PRN PRN Reason: Poor Colonoscopy Prep Results Sodium Chloride (0.9 % Sodium Chloride Flush 3 Ml Syringe) 3 ml IVFLUSH QSHIFT [facility] Last Admin: 01/21/23 08:55 Dose: 3 ml Home Medications Medication Instructions Recorded Confirmed Last Taken Type albuterol sulfate 90 mcg/actuation 2 puff inhalation Q4H PRN wheezing 01/20/23 01/20/23 Unknown History aerosol inhaler allopurinol 100 mg tablet 100 mg PO BID 01/20/23 01/20/23 01/19/23 History amlodipine 5 mg tablet 5 mg PO DAILY 01/20/23 01/20/23 01/19/23 History aspirin 81 mg tablet,delayed 81 mg PO DAILY 01/20/23 01/20/23 01/19/23 History release glipizide 2.5 mg tablet, extended 2.5 mg PO DAILY 01/20/23 01/20/23 01/19/23 History release 24 hr isosorbide mononitrate 30 mg 30 mg PO DAILY 01/20/23 01/20/23 01/19/23 History tablet,extended release 24 hr lisinopril 20 mg tablet 20 mg PO DAILY 01/20/23 01/20/23 01/19/23 History prasugrel 10 mg tablet 10 mg PO DAILY 01/20/23 01/20/23 01/19/23 History pravastatin 20 mg tablet 20 mg PO DAILY 01/20/23 01/20/23 01/19/23 History umeclidinium 62.5 mcg-vilanterol 1 inh inhalation DAILY 01/20/23 01/20/23 01/19/23 History 25 mcg/actuation powdr for inhalation (Anoro Ellipta) Physical Exam 2 Vital Signs: Vital Signs: Last Vital Signs Temp 98.7 F 01/21/23 07:21 Pulse 74 01/21/23 07:21 Resp 20 01/21/23 07:21 BP 113/61 01/21/23 07:21 Pulse Ox 97 01/21/23 07:21 O2 Del Method Room Air 01/21/23 07:21 BMI result Body Mass Index 24.8 Const: General: comfortable and no acute distress O rientation/consciousness: patient oriented x3 HEENT: Other: Unremarkable Head: Yes normal to inspection Neck: Neck: Yes normal visual inspection Chest: Chest palpation & inspection: normal inspection of the chest Resp: Auscultation: clear to auscultation bilaterally Cardio: Palpation: normal PMI Heart sounds: S1 normal heart sound present, S2 normal heart sound present, no gallops, no murmurs and no rubs GI: Palpation (GI): Soft to palpation Back/Spine/Pelvis: Other: unremarkable Skin: General skin exam: no rashes or lesions noted Neuro: General: patient oriented x3 Extrem: General: Yes normal to inspection Psych: Mental Status: mental status grossly normal Objective Labs and Meds 01/21/23 05:28 01/21/23 05:28 Lab results: Laboratory Results - last 24 hr 01/20/23 01/20/23 01/20/23 05:52 07:33 11:54 WBC RBC Hgb Hct MCV MCH MCHC RDW Plt Count MPV Absolute Nucleated RBC Nucleated RBC % (auto) Sodium Potassium Chloride Carbon Dioxide Anion Gap BUN Creatinine Estim Creat Clear Calc Estimated GFR POC Glucose 112 Random Glucose Calcium Iron 24 L TIBC 315 % Saturation 8 L Unsat Iron Binding 291 Ferritin 15 L Lactate Dehydrogenase 212 Crossmatch See Detail 01/20/23 01/20/23 01/21/23 16:33 22:09 05:28 WBC 6.0 RBC 3.17 L Hgb 8.4 L Hct 25.2 L MCV 79.5 L MCH 26.5 L MCHC 33.3 RDW 15.9 Plt Count 147 L MPV 10.5 Absolute Nucleated RBC 0.000 Nucleated RBC % (auto) 0.0 Sodium 138 Potassium 4.4 Chloride 108 Carbon Dioxide 23 Anion Gap 11 L BUN 19 H Creatinine 1.82 H Estim Creat Clear Calc 35.9 Estimated GFR 36 POC Glucose 128 H 115 Random Glucose 123 H Calcium 9.2 Iron TIBC % Saturation Unsat Iron Binding Ferritin Lactate Dehydrogenase Crossmatch 01/21/23 07:23 WBC RBC Hgb Hct MCV MCH MCHC RDW Plt Count MPV Absolute Nucleated RBC Nucleated RBC % (auto) Sodium Potassium Chloride Carbon Dioxide Anion Gap BUN Creatinine Estim Creat Clear Calc Estimated GFR POC Glucose 134 H Random Glucose Calcium Iron TIBC % Saturation Unsat Iron Binding Ferritin Lactate Dehydrogenase Crossmatch ECG Interpretation: At 76/Min; minimal voltage criteria for LVH; downsloping STs in anterolateral/lateral leads. Assessment and Plan (1) Symptomatic anemia: Status: Acute (2) CAD (coronary artery disease): Status: Acute (3) Cardiomyopathy: Status: Acute Plan Last echocardiogram from [facility] with an ejection fraction 25- 30%. Per recent cardiac catheterization from December, status post RCA stenting. Otherwise no significant CAD and patent LAD stents. Currently, concern is regarding anemia. Discussed with Dr. Nguyen, covering for [facility]. He stated that okay to just continue aspirin only for now till anemia sorted out. Then if high bleeding risk, then long-term aspirin only vs aspirin/Plavix. To be decided. His iron and ferritin levels are low and that will need replacement in the long- term. Continue usual medications for coronary disease/cardiomyopathy otherwise. May proceed with GI workup as necessary as it is essential to identify the etiology of any GI blood loss. Intermediate risk. Discussed with Jacinta Braun. Procedures Date of Service Date of Service: 01/21/23
[2023-01-21] MEDS: Iron Sucrose Complex 200 MG in 0.9 % Sodium Chloride 100 ML 440 MG IV (11:01)
--- NOTE | 2023-01-21 11:34 | P.PNIM_ITS ---
Subjective Subjective Date of Service: 01/21/23 Interval History: seen and examined this morning follow up for symptomatic anemia s/p 1u rbc, feeling better. no sob Review of Systems Review of Systems: Yes all other systems are reviewed and are negative Constitutional Constitutional: Denies chills and Denies fever(s) Cardiovascular Cardiovascular: Denies chest pain, Denies palpitations and Denies dyspnea Respiratory Respiratory: Denies cough and Denies dyspnea Gastrointestinal Gastrointestinal: Denies abdominal pain Endocrine Endocrine: Denies palpitations Physical Exam 2 Vital Signs: Vital Signs: Last Vital Signs Temp 98.7 F 01/21/23 07:21 Pulse 74 01/21/23 07:21 Resp 20 01/21/23 07:21 BP 113/61 01/21/23 07:21 Pulse Ox 97 01/21/23 07:21 O2 Del Method Room Air 01/21/23 07:21 BMI result Body Mass Index 24.8 Const: General: cooperative, comfortable, no acute distress, alert and awake Nutritional Appearance: average body habitus Orientation/consciousness: p atient oriented x3 Resp: Effort & Inspection: normal respiratory effort, able to speak in complete sentences, no respiratory distress and no use of accessory muscles A uscultation: clear to auscultation bilaterally Cardio: Rate: regular rate GI: Inspection: No distended Palpation (GI): Soft to palpation and nontender Neuro: General: patient oriented x3, moves all extremities and CN's II-XI intact bilaterally Extrem: General: Yes no pedal edema Objective Data Active Medications Acetaminophen (Acetaminophen 325 Mg Tablet) 650 mg PO Q6H PRN PRN Reason: Pain, Mild (Pain Scale 1-3) Albuterol Sulfate (Albuterol Sulfate 90 Mcg 8 Gm Inhaler) 2 puff INHALE Q4H PRN PRN Reason: wheezing Allopurinol (Allopurinol 100 Mg Tablet) 100 mg PO BID [facility] Last Admin: 01/21/23 08:55 Dose: 100 mg Documented By: FEDERICO Aspirin (Aspirin Enteric Coated 81 Mg Tablet.) 81 mg PO DAILY [facility] Last Admin: 01/21/23 08:54 Dose: 81 mg Documented By: FEDERICO Bisacodyl (Bisacodyl 5 Mg Tablet.) 10 mg PO ONCE ONE Stop: 01/21/23 13:01 Bisacodyl (Bisacodyl 5 Mg Tablet.) 10 mg PO ONCE ONE Stop: 01/21/23 19:01 Dextrose (Dextrose 50 % 25 Gm/50 Ml Syringe) 25 gm IVPUSH Q15M PRN; Protocol PRN Reason: per Hypoglycemia Standing Ord. Glucose (Glucose Gel 15 Gm Gel..Gram.) 15 gm PO Q15M PRN; Protocol PRN Reason: per Hypoglycemia Standing Ord. Insulin Human Lispro (Insulin Lispro 100 Unit/Ml 3 Ml Vial) 0 unit SUBCUT QIDACHS [facility]; Protocol Last Admin: 01/21/23 08:30 Dose: Not Given Documented By: LOLI Non-Admin Reason: No Insulin Coverage Isosorbide Mononitrate (Isosorbide Mononitrate 30 Mg Tab.Er.24h) 30 mg PO DAILY [facility]; Protocol Last Admin: 01/21/23 08:54 Dose: 30 mg Documented By: FEDERICO Lisinopril (Lisinopril 20 Mg Tablet) 20 mg PO DAILY [facility]; Protocol Last Admin: 01/21/23 08:54 Dose: 20 mg Documented By: FEDERICO Non-Formulary Medication (Umeclidinium-Vilanterol [Anoro Ellipta]) 1 inhalation INHALE DAILY [facility] Non-Formulary Medication (Prasugrel) 10 mg PO DAILY [facility] Polyethylene Glycol/Electrolytes (Peg 3350/Na Sulf,Bicarb,Cl/Kcl 4,000 Ml Soln.Recon) 240 ml PO Q10M [facility] Stop: 01/21/23 17:41 Pravastatin Sodium (Pravastatin Sodium 20 Mg Tablet) 20 mg PO DAILY [facility] Last Admin: 01/21/23 08:54 Dose: 20 mg Documented By: FEDERICO Sodium Biphosphate/Sodium Phosphate (Sodium Phosphate,[place]-Dibasic 133 Ml Enema) 133 ml [place] ONCE PRN PRN Reason: Poor Colonoscopy Prep Results Sodium Chloride (0.9 % Sodium Chloride Flush 3 Ml Syringe) 3 ml IVFLUSH QSHIFT [facility] Last Admin: 01/21/23 08:55 Dose: 3 ml Documented By: FEDERICO Labs 01/21/23 05:28 01/21/23 05:28 Labs: Laboratory Results - last 24 hr 01/20/23 01/20/23 01/20/23 07:33 11:54 16:33 MCV MCH MCHC RDW Plt Count MPV Absolute Nucleated RBC Nucleated RBC % (auto) Anion Gap Estim Creat Clear Calc Estimated GFR POC Glucose 112 128 H Random Glucose Calcium Crossmatch See Detail 01/20/23 01/21/23 01/21/23 22:09 05:28 07:23 MCV 79.5 L MCH 26.5 L MCHC 33.3 RDW 15.9 Plt Count 147 L MPV 10.5 Absolute Nucleated RBC 0.000 Nucleated RBC % (auto) 0.0 Anion Gap 11 L Estim Creat Clear Calc 35.9 Estimated GFR 36 POC Glucose 115 134 H Random Glucose 123 H Calcium 9.2 Crossmatch Assessment and Plan (1) Cardiomyopathy: Status: Acute (2) CAD (coronary artery disease): Status: Acute (3) Symptomatic anemia: Status: Acute Plan This is an 82-year-old male with history of CAD s/p stent to LAD and most recently KAROLINA to mid RCA at [facility] 12/19/22, DM, asthma, HTN with persistent MUNOZ who was sent to the ED for evaluation of anemia discovered on outpatient lab draw. acute on chronic anemia likely due to iron deficiency in the setting of DAPT most recent labs from [facility] 04/2022 8.9/26.2, today 7.2/; orthostatics + in ED although pt asymptomatic and has been ambulating s/p 1U rbc 01/20 with improvement in H/H to 8.4/25.2 also has CKD which could be playing a role no evidence of active bleeding given recent stent placement (12/2022) discussed DAPT with cardiology - prasgrel is nonformulary - on hold. okay to just continue aspirin only for now until anemia sorted out. Then if high bleeding risk, then long-term aspirin only vs aspirin/Plavix. To be decided seen by GI - plan for EGD/colonoscopy 01/22 will give a dose of IV iron today and plan for po iron supplementation on discharge CAD with h/o multiple stents, most recent KAROLINA to RCA 12/19/22 chronic HFrEF. EF 25-30% not on diuretics trop negative, no chest pain continue asa, statin, imdur - hold aspirin on day of procedure (01/22) and then resume after DM hold glipizide SSI, POCs, ADA diet HTN will continue lisinopril for now hold norvasc to avoid hypotension although no active bleeding; can resume if BP remains stable CKD3 per records from [facility], last SCr from 04/2022 was 1.7 - appears to be near baseline follow BMP asthma, unspecified no acute exacerbation continue home inhalers dvt ppx - no chemoprophylaxis due to anemia and DAPT, patient is ambulatory code status: DNR/DNI attending - Dr. Moffett requires ongoing hospitalization for management of symptomatic anemia requiring blood transfusion as well as specialist evaluation and EGD/colonoscopy in a patient with multiple comorbidities including CAD on DAPT putting him at risk for severe bleeding and requiring close monitoring Quality Stroke Does the patient have a stroke diagnosis?: No VTE Prior VTE?: No VTE Risk Level:: Medical - moderate - high VTE Device Contraindication: N/A - Device Ordered VTE Drug Contraindication: Treatment Not Indicated
[2023-01-21 11:35] VITALS: BP 132/64; PULSE 74; RESP 20; TEMP 36.8; O2SAT 99
[2023-01-21 11:47] LABS: Glucose, Whole Blood 170 mg/dL (60-115)
[2023-01-21] MEDS: Insulin Lispro 100 UNIT/ML 3 ML VIAL SUBCUT (12:10)
[2023-01-21] MEDS: bisacodyL 5 MG TABLET.DR 10 MG PO ×2 (12:10→18:21)
--- NOTE | 2023-01-21 13:29 | MHC.CM.PN ---
IMM 01/21/23 MALE 82 DX ANEMIA LIVES WITH HIS . HE IS INDEPENDENT WITH ALL FUNCTIONAL MOBILITY. PCP IS FROM [place]. [facility]. WILL TRANSPORT AT [place].
[2023-01-21] MEDS: PEG 3350/Na Sulf,Bicarb,Cl/KCL 4,000 ML SOLN.RECON 4000 ML PO (15:40)
[2023-01-21 15:45] VITALS: BP 141/63; PULSE 91; RESP 16; TEMP 36.3; O2SAT 98
[2023-01-21 16:19] LABS: Glucose, Whole Blood 79 mg/dL (60-115)
[2023-01-21 19:49] VITALS: BP 129/66; PULSE 79; RESP 17; TEMP 36.4
[2023-01-21 20:36] LABS: Glucose, Whole Blood 92 mg/dL (60-115)
[2023-01-21 23:56] VITALS: BP 124/60; PULSE 74; RESP 18; TEMP 37.1; O2SAT 96
[2023-01-22] VITALS (10 sets, daily range): BP systolic 98–145; BP diastolic 41–87; PULSE 74–94; RESP 15–20; TEMP 36.3–37.1; O2SAT 97–100
[2023-01-22 07:28] LABS: Glucose, Whole Blood 104 mg/dL (60-115)
[2023-01-22 07:56] LABS: MANUAL DIFF FLAG NO
[2023-01-22 08:01] LABS: Basophils Absolute Auto 0.1 X10*3/uL (0.0-0.2); Basophils Percent Auto 0.8 % (0-2); Eosinophils Absolute Auto 0.2 X10*3/uL (0.0-0.4); Eosinophils Percent Auto 2.5 % (0-4); Hematocrit 25.3 % (42.0-52.0); Hemoglobin 8.6 g/dl (14.0-18.0); Imm Gran Abs Auto 0.01 X10*3/uL (0.00-0.03); Imm Gran Pct Auto 0.2 % (0.0-0.4); Lymphocytes Absolute Auto 1.8 X10*3/uL (1.2-4.9); Lymphocytes Percent Auto 30.1 % (20-40); Mean Corpuscular Hemoglobin 26.9 pg (27.0-33.0); Mean Corpuscular Volume 79.1 fL (80.0-98.0); Mean Platelet Volume 10.5 fL (9.4-12.4); Monocytes Absolute Auto 0.6 X10*3/uL (0.1-1.2); Monocytes Percent Auto 10.1 % (2-11); Neutrophils Absolute Auto 3.5 x10*3/uL (2.0-8.3); Neutrophils Percent Auto 56.3 % (45-73); Platelet Count 157 X10*3/uL (160-400); White Blood Count 6.1 X10*3/uL (4.8-10.8)
[2023-01-22 08:18] LABS: Anion Gap 9 (12-20); Blood Urea Nitrogen 16 mg/dL (9-16); Calcium 8.9 mg/dL (8.4-10.2); Carbon Dioxide 24 mmol/L (22-29); Chloride 108 mmol/L (96-108); Creatinine Clr Calc Pharmacy 39.9; Estimated Glomerular Filt Rate 41; Glucose Fasting 95 mg/dL (60-99); Potassium 4.1 mmol/L (3.3-5.1); Sodium 137 mmol/L (135-145)
--- NOTE | 2023-01-22 09:13 | HO.PM.IMPN ---
Subjective Subjective Date of Service: 01/22/23 Interval History: seen and examined this morning follow up for symptomatic anemia s/p 1u rbc, feeling better. no sob Review of Systems Review of Systems: Yes all other systems are reviewed and are negative Constitutional Constitutional: Denies chills and Denies fever(s) Cardiovascular Cardiovascular: Denies chest pain, Denies palpitations and Denies dyspnea Respiratory Respiratory: Denies cough and Denies dyspnea Gastrointestinal Gastrointestinal: Denies abdominal pain Endocrine Endocrine: Denies palpitations Physical Exam Vital Signs: Vital Signs: Last Vital Signs Temp 97.8 F 01/22/23 07:12 Pulse 94 01/22/23 07:12 Resp 20 01/22/23 07:12 BP 145/56 H 01/22/23 07:12 Pulse Ox 97 01/22/23 07:12 O2 Del Method Room Air 01/22/23 07:12 BMI result Body Mass Index 24.8 Appearing in no acute distress lung sounds are clear to auscultation heart regular rate rhythm, clear S1, S2 positive bowel sounds, abdomen is soft, nontender neuro patient is alert x3, no focal deficits Objective Data Active Medications Acetaminophen (Acetaminophen 325 Mg Tablet) 650 mg PO Q6H PRN PRN Reason: Pain, Mild (Pain Scale 1-3) Albuterol Sulfate (Albuterol Sulfate 90 Mcg 8 Gm Inhaler) 2 puff INHALE Q4H PRN PRN Reason: wheezing Allopurinol (Allopurinol 100 Mg Tablet) 100 mg PO BID [facility] Last Admin: 01/21/23 21:37 Dose: 100 mg Documented By: JOSE A Aspirin (Aspirin Enteric Coated 81 Mg Tablet.) 81 mg PO DAILY [facility] Last Admin: 01/21/23 08:54 Dose: 81 mg Documented By: FEDERICO Dextrose (Dextrose 50 % 25 Gm/50 Ml Syringe) 25 gm IVPUSH Q15M PRN; Protocol PRN Reason: per Hypoglycemia Standing Ord. Glucose (Glucose Gel 15 Gm Gel..Gram.) 15 gm PO Q15M PRN; Protocol PRN Reason: per Hypoglycemia Standing Ord. Insulin Human Lispro (Insulin Lispro 100 Unit/Ml 3 Ml Vial) 0 unit SUBCUT QIDACHS [facility]; Protocol Last Admin: 01/22/23 08:30 Dose: Not Given Documented By: KELLE Non-Admin Reason: No Insulin Coverage Isosorbide Mononitrate (Isosorbide Mononitrate 30 Mg Tab.Er.24h) 30 mg PO DAILY [facility]; Protocol Last Admin: 01/21/23 08:54 Dose: 30 mg Documented By: FEDERICO Lisinopril (Lisinopril 20 Mg Tablet) 20 mg PO DAILY [facility]; Protocol Last Admin: 01/21/23 08:54 Dose: 20 mg Documented By: FEDERICO Non-Formulary Medication (Umeclidinium-Vilanterol [Anoro Ellipta]) 1 inhalation INHALE DAILY [facility] Non-Formulary Medication (Prasugrel) 10 mg PO DAILY [facility] Pravastatin Sodium (Pravastatin Sodium 20 Mg Tablet) 20 mg PO DAILY [facility] Last Admin: 01/21/23 08:54 Dose: 20 mg Documented By: FEDERICO Sodium Biphosphate/Sodium Phosphate (Sodium Phosphate,[place]-Dibasic 133 Ml Enema) 133 ml [place] ONCE PRN PRN Reason: Poor Colonoscopy Prep Results Sodium Chloride (0.9 % Sodium Chloride Flush 3 Ml Syringe) 3 ml IVFLUSH QSHIFT [facility] Last Admin: 01/21/23 21:38 Dose: 3 ml Documented By: PRISCILALAMC Labs 01/22/23 07:05 01/22/23 07:05 Labs: Laboratory Results - last 24 hr 01/21/23 01/21/23 01/21/23 11:37 16:00 20:29 MCV MCH MCHC RDW Plt Count MPV Immature Gran % (Auto) Neut % (Auto) Lymph % (Auto) [place] % (Auto) Eos % (Auto) Baso % (Auto) Lymph # (Auto) [place] # (Auto) Eos # (Auto) Baso # (Auto) Abs Immat Gran (auto) Absolute Neuts (auto) Absolute Nucleated RBC Nucleated RBC % (auto) Anion Gap Estim Creat Clear Calc Estimated GFR POC Glucose 170 H 79 92 Fasting Glucose Calcium 01/22/23 01/22/23 07:05 07:14 MCV 79.1 L MCH 26.9 L MCHC 34.0 RDW 16.0 Plt Count 157 L MPV 10.5 Immature Gran % (Auto) 0.2 Neut % (Auto) 56.3 Lymph % (Auto) 30.1 [place] % (Auto) 10.1 Eos % (Auto) 2.5 Baso % (Auto) 0.8 Lymph # (Auto) 1.8 [place] # (Auto) 0.6 Eos # (Auto) 0.2 Baso # (Auto) 0.1 Abs Immat Gran (auto) 0.01 Absolute Neuts (auto) 3.5 Absolute Nucleated RBC 0.000 Nucleated RBC % (auto) 0.0 Anion Gap 9 L Estim Creat Clear Calc 39.9 Estimated GFR 41 POC Glucose 104 Fasting Glucose 95 Calcium 8.9 Assessment and Plan (1) Cardiomyopathy: Status: Acute (2) CAD (coronary artery disease): Status: Acute (3) Symptomatic anemia: Status: Acute Plan This is an 82-year-old male with history of CAD s/p stent to LAD and most recently KAROLINA to mid RCA at [facility] 12/19/22, DM, asthma, HTN with persistent MUNOZ who was sent to the ED for evaluation of anemia discovered on outpatient lab draw. acute on chronic anemia likely due to iron deficiency in the setting of DAPT most recent labs from [facility] 04/2022 8.9/26.2, today 7.2/; orthostatics + in ED although pt asymptomatic and has been ambulating s/p 1U rbc 01/20 with improvement in H/H to 8.4/25.2 also has CKD which could be playing a role no evidence of active bleeding given recent stent placement (12/2022) discussed DAPT with cardiology - prasgrel is nonformulary - on hold. okay to just continue aspirin only for now until anemia sorted out. Then if high bleeding risk, then long-term aspirin only vs aspirin/Plavix. To be decided s/p IV iron, contnue oral supplement seen by GI - plan for EGD/colonoscopy today CAD with h/o multiple stents, most recent KAROLINA to RCA 12/19/22 chronic HFrEF. EF 25-30% not on diuretics trop negative, no chest pain continue asa, statin, imdur - hold aspirin on day of procedure (01/22) and then resume after DM hold glipizide SSI, POCs, ADA diet HTN will continue lisinopril for now hold norvasc to avoid hypotension although no active bleeding; can resume if BP remains stable CKD3 per records from [facility], last SCr from 04/2022 was 1.7 - appears to be near baseline follow BMP asthma, unspecified no acute exacerbation continue home inhalers dvt ppx - no chemoprophylaxis due to anemia and DAPT, patient is ambulatory code status: DNR/DNI attending - Dr. Hodge requires ongoing hospitalization for management of symptomatic anemia requiring blood transfusion as well as specialist evaluation and EGD/colonoscopy in a patient with multiple comorbidities including CAD on DAPT putting him at risk for severe bleeding and requiring close monitoring Quality Stroke Does the patient have a stroke diagnosis?: No VTE Prior VTE?: No VTE Risk Level:: Medical - moderate - high VTE Device Contraindication: N/A - Device Ordered VTE Drug Contraindication: Treatment Not Indicated
[2023-01-22] MEDS: Isosorbide Mononitrate 30 MG TAB.ER.24H PO (09:27)
[2023-01-22] MEDS: Pravastatin Sodium 20 MG TABLET PO (09:27)
[2023-01-22] MEDS: lisinopriL 20 MG TABLET PO (09:27)
[2023-01-22] MEDS: 0.9 % Sodium Chloride Flush 3 ML SYRINGE IVFLUSH (09:27)
[2023-01-22] MEDS: allopurinoL 100 MG TABLET PO ×2 (09:27→21:06)
[2023-01-22 11:37] LABS: Glucose, Whole Blood 104 mg/dL (60-115)
--- NOTE | 2023-01-22 12:17 | PM.PNCARD ---
Subjective Subjective Date of Service: 01/22/23 Interval history: Seen and examined at bedside. Clinically stable. Denying any chest discomfort abdominal discomfort. Going for endoscopy today. Physical Exam Vital Signs: Last Vital Signs Temp 98.7 F 01/22/23 11:06 Pulse 75 01/22/23 11:06 Resp 20 01/22/23 11:06 BP 142/65 H 01/22/23 11:06 Pulse Ox 98 01/22/23 11:06 O2 Del Method Room Air 01/22/23 11:06 BMI result Body Mass Index 24.8 GENERAL APPEARANCE: in no acute distress, pleasant. NECK: no carotid bruit, no jugular venous distention. SKIN: no suspicious lesions, warm and dry. HEART: no murmurs, regular rate and rhythm. LUNGS: clear to auscultation bilaterally. ABDOMEN: soft, nontender. EXTREMITIES: no edema. PERIPHERAL PULSES: equal. NEUROLOGIC: No gross deficits, AAO X 3 Objective Labs and Meds 01/22/23 07:05 01/22/23 07:05 Lab results: Laboratory Results - last 24 hr 01/21/23 01/21/23 01/22/23 16:00 20:29 07:05 WBC 6.1 RBC 3.20 L Hgb 8.6 L Hct 25.3 L MCV 79.1 L MCH 26.9 L MCHC 34.0 RDW 16.0 Plt Count 157 L MPV 10.5 Immature Gran % (Auto) 0.2 Neut % (Auto) 56.3 Lymph % (Auto) 30.1 [place] % (Auto) 10.1 Eos % (Auto) 2.5 Baso % (Auto) 0.8 Lymph # (Auto) 1.8 [place] # (Auto) 0.6 Eos # (Auto) 0.2 Baso # (Auto) 0.1 Abs Immat Gran (auto) 0.01 Absolute Neuts (auto) 3.5 Absolute Nucleated RBC 0.000 Nucleated RBC % (auto) 0.0 Sodium 137 Potassium 4.1 Chloride 108 Carbon Dioxide 24 Anion Gap 9 L BUN 16 Creatinine 1.64 H Estim Creat Clear Calc 39.9 Estimated GFR 41 POC Glucose 79 92 Fasting Glucose 95 Calcium 8.9 01/22/23 01/22/23 07:14 11:08 WBC RBC Hgb Hct MCV MCH MCHC RDW Plt Count MPV Immature Gran % (Auto) Neut % (Auto) Lymph % (Auto) [place] % (Auto) Eos % (Auto) Baso % (Auto) Lymph # (Auto) [place] # (Auto) Eos # (Auto) Baso # (Auto) Abs Immat Gran (auto) Absolute Neuts (auto) Absolute Nucleated RBC Nucleated RBC % (auto) Sodium Potassium Chloride Carbon Dioxide Anion Gap BUN Creatinine Estim Creat Clear Calc Estimated GFR POC Glucose 104 104 Fasting Glucose Calcium Progress Note: A&P Assessment and plan (1) CAD (coronary artery disease): Status: Acute (2) Cardiomyopathy: Status: Acute (3) Symptomatic anemia: Status: Acute Plan Pleasant 82 year gentleman with recent PCI performed to RCA in December 2022. He was on aspirin and prasugrel and came in GI bleed. After discussion with Interventional Cardiology, Dr Nguyen, prasugrel was held. He is clinically stable. He is going for endoscopy today. If a treatable causes found then antiplatelet therapy should be resumed. I would avoid using process he will regain and would favor using Plavix. In the long run aspirin is more problematic than Plavix and potentially changing him to Plavix monotherapy at 6 months can be 1 option. Thank you for allowing me to participate in the care of your patient. Please feel free to contact me if you have any questions. Time Spent With Patient Time: Total time managing care of this patient today ____ minutes. Progress Note: Quality Stroke Does the patient have a stroke diagnosis?: No Procedures Date of Service Date of Service: 01/22/23
--- NOTE | 2023-01-22 15:45 | MHC.CM.PN ---
EMR reviewed and per MD rounds, pt is not medically cleared for D/C due to EGD and colonoscopy today, pt will likely D/C tomorrow. CM will continue to follow.
--- NOTE | 2023-01-22 16:36 | HO.ANESPROP2 ---
HPI - Anesthesia Eval Consult details Narrative: 82 M for EGD and colonoscopy CAD s/p stents x3 , last one in december no Cp , no sob EF 25-30 % He was on aspirin and prasugrel. Cardiology following . Case discussed with DR Levin . Patient is high risk for perioperative complications but needs the procedure . He undersdands that he is high risk and would like to proceed . PMFSH Active Problems All Active Problems (Updated 01/21/23 @ 11:03 by Baldev Gustafson MD) Cardiomyopathy (Acute) CAD (coronary artery disease) (Acute) Symptomatic anemia (Acute) Past Medical History Medical History (Updated 01/21/23 @ 11:03 by Baldev Gustafson MD) CKD (chronic kidney disease) Asthma Diabetes CAD (coronary artery disease) Functional capacity: independent ambulation Family History Family history of problems with anesthesia: No Surgical History Surgical History (Updated 01/20/23 @ 11:22 by MEAGAN Reynoso) Stented coronary artery History of Problems with Anesthesia: No Social History Social History (Updated 01/20/23 @ 11:24 by MEAGAN Reynoso) Alcohol intake: current Alcohol intake frequency: 0-2 drinks per day Patient Tobacco Use Status: Former Tobacco user Quit Date: remote history >30 years service: Yes Meds Allergies Allergy/AdvReac Type Severity Reaction Status Date / Time Penicillins [PENICILLINS] Allergy Unknown UNKNOWN Verified 01/20/23 05:37 Active Medications: Current Medications Acetaminophen (Acetaminophen 325 Mg Tablet) 650 mg PO Q6H PRN PRN Reason: Pain, Mild (Pain Scale 1-3) Albuterol Sulfate (Albuterol Sulfate 90 Mcg 8 Gm Inhaler) 2 puff INHALE Q4H PRN PRN Reason: wheezing Allopurinol (Allopurinol 100 Mg Tablet) 100 mg PO BID [facility] Last Admin: 01/22/23 09:27 Dose: 100 mg Aspirin (Aspirin Enteric Coated 81 Mg Tablet.) 81 mg PO DAILY [facility] Last Admin: 01/21/23 08:54 Dose: 81 mg Dextrose (Dextrose 50 % 25 Gm/50 Ml Syringe) 25 gm IVPUSH Q15M PRN; Protocol PRN Reason: per Hypoglycemia Standing Ord. Glucose (Glucose Gel 15 Gm Gel..Gram.) 15 gm PO Q15M PRN; Protocol PRN Reason: per Hypoglycemia Standing Ord. Insulin Human Lispro (Insulin Lispro 100 Unit/Ml 3 Ml Vial) 0 unit SUBCUT QIDACHS [facility]; Protocol Last Admin: 01/22/23 11:41 Dose: Not Given Isosorbide Mononitrate (Isosorbide Mononitrate 30 Mg Tab.Er.24h) 30 mg PO DAILY [facility]; Protocol Last Admin: 01/22/23 09:27 Dose: 30 mg Lisinopril (Lisinopril 20 Mg Tablet) 20 mg PO DAILY [facility]; Protocol Last Admin: 01/22/23 09:27 Dose: 20 mg Non-Formulary Medication (Umeclidinium-Vilanterol [Anoro Ellipta]) 1 inhalation INHALE DAILY [facility] Non-Formulary Medication (Prasugrel) 10 mg PO DAILY [facility] Pravastatin Sodium (Pravastatin Sodium 20 Mg Tablet) 20 mg PO DAILY [facility] Last Admin: 01/22/23 09:27 Dose: 20 mg Sodium Biphosphate/Sodium Phosphate (Sodium Phosphate,[place]-Dibasic 133 Ml Enema) 133 ml ND ONCE PRN PRN Reason: Poor Colonoscopy Prep Results Sodium Chloride (0.9 % Sodium Chloride Flush 3 Ml Syringe) 3 ml IVFLUSH QSHIFT [facility] Last Admin: 01/22/23 16:12 Dose: Not Given Home Medications Medication Instructions Recorded Confirmed Last Taken Type albuterol sulfate 90 mcg/actuation 2 puff inhalation Q4H PRN wheezing 01/20/23 01/20/23 Unknown History aerosol inhaler allopurinol 100 mg tablet 100 mg PO BID 01/20/23 01/20/23 01/19/23 History amlodipine 5 mg tablet 5 mg PO DAILY 01/20/23 01/20/23 01/19/23 History aspirin 81 mg tablet,delayed 81 mg PO DAILY 01/20/23 01/20/23 01/19/23 History release glipizide 2.5 mg tablet, extended 2.5 mg PO DAILY 01/20/23 01/20/23 01/19/23 History release 24 hr isosorbide mononitrate 30 mg 30 mg PO DAILY 01/20/23 01/20/23 01/19/23 History tablet,extended release 24 hr lisinopril 20 mg tablet 20 mg PO DAILY 01/20/23 01/20/23 01/19/23 History prasugrel 10 mg tablet 10 mg PO DAILY 01/20/23 01/20/23 01/19/23 History pravastatin 20 mg tablet 20 mg PO DAILY 01/20/23 01/20/23 01/19/23 History umeclidinium 62.5 mcg-vilanterol 1 inh inhalation DAILY 01/20/23 01/20/23 01/19/23 History 25 mcg/actuation powdr for inhalation (Anoro Ellipta) Exam Height,Weight and Vital Signs: Height 6 ft 1 in Weight 85.275 kg Last Vital Signs Temp 98.4 F 01/22/23 15:20 Pulse 74 01/22/23 15:20 Resp 16 01/22/23 15:20 BP 133/76 01/22/23 15:20 Pulse Ox 99 01/22/23 15:20 O2 Del Method Room Air 01/22/23 15:20 Pertinent Lab Results Pertinent Lab Results: Laboratory Tests 01/20/23 01/20/23 01/20/23 05:52 07:33 11:54 WBC 5.6 RBC 2.74 L Hgb 7.2 L Hct 21.1 L MCV 77.0 L MCH 26.3 L MCHC 34.1 RDW 15.4 Plt Count 155 L MPV 9.7 Immature Gran % (Auto) 0.4 Neut % (Auto) 49.7 Lymph % (Auto) 35.5 [place] % (Auto) 10.3 Eos % (Auto) 3.0 Baso % (Auto) 1.1 Lymph # (Auto) 2.0 [place] # (Auto) 0.6 Eos # (Auto) 0.2 Baso # (Auto) 0.1 Abs Immat Gran (auto) 0.02 Absolute Neuts (auto) 2.8 Absolute Nucleated RBC 0.000 Nucleated RBC % (auto) 0.0 PT 12.1 INR 1.0 APTT 25.9 L Sodium 139 Potassium 4.2 Chloride 111 H Carbon Dioxide 19 L Anion Gap 13 BUN 23 H Creatinine 1.77 H Estim Creat Clear Calc 36.9 Estimated GFR 37 POC Glucose 112 Random Glucose 89 Fasting Glucose Calcium 9.0 Iron 24 L TIBC 315 % Saturation 8 L Unsat Iron Binding 291 Ferritin 15 L Total Bilirubin 0.2 AST 21 ALT 11 Alkaline Phosphatase 42 Lactate Dehydrogenase 212 Troponin I High Sens 13.7 B-Natriuretic Peptide 43 Total Protein 7.1 Albumin 4.0 Stool Occult Blood NEGATIVE Influenza Type A (PCR) NEGATIVE Influenza Type B (PCR) NEGATIVE RSV RNA Qual (PCR) NEGATIVE SARS-CoV-2 RNA (RT-PCR) NEGATIVE Blood Type A Positive Antibody Screen NEGATIVE Crossmatch See Detail 01/20/23 01/20/23 01/21/23 16:33 22:09 05:28 WBC 6.0 RBC 3.17 L Hgb 8.4 L Hct 25.2 L MCV 79.5 L MCH 26.5 L MCHC 33.3 RDW 15.9 Plt Count 147 L MPV 10.5 Immature Gran % (Auto) Neut % (Auto) Lymph % (Auto) [place] % (Auto) Eos % (Auto) Baso % (Auto) Lymph # (Auto) [place] # (Auto) Eos # (Auto) Baso # (Auto) Abs Immat Gran (auto) Absolute Neuts (auto) Absolute Nucleated RBC 0.000 Nucleated RBC % (auto) 0.0 PT INR APTT Sodium 138 Potassium 4.4 Chloride 108 Carbon Dioxide 23 Anion Gap 11 L BUN 19 H Creatinine 1.82 H Estim Creat Clear Calc 35.9 Estimated GFR 36 POC Glucose 128 H 115 Random Glucose 123 H Fasting Glucose Calcium 9.2 Iron TIBC % Saturation Unsat Iron Binding Ferritin Total Bilirubin AST ALT Alkaline Phosphatase Lactate Dehydrogenase Troponin I High Sens B-Natriuretic Peptide Total Protein Albumin Stool Occult Blood Influenza Type A (PCR) Influenza Type B (PCR) RSV RNA Qual (PCR) SARS-CoV-2 RNA (RT-PCR) Blood Type Antibody Screen Crossmatch 01/21/23 01/21/23 01/21/23 07:23 11:37 16:00 WBC RBC Hgb Hct MCV MCH MCHC RDW Plt Count MPV Immature Gran % (Auto) Neut % (Auto) Lymph % (Auto) [place] % (Auto) Eos % (Auto) Baso % (Auto) Lymph # (Auto) [place] # (Auto) Eos # (Auto) Baso # (Auto) Abs Immat Gran (auto) Absolute Neuts (auto) Absolute Nucleated RBC Nucleated RBC % (auto) PT INR APTT Sodium Potassium Chloride Carbon Dioxide Anion Gap BUN Creatinine Estim Creat Clear Calc Estimated GFR POC Glucose 134 H 170 H 79 Random Glucose Fasting Glucose Calcium Iron TIBC % Saturation Unsat Iron Binding Ferritin Total Bilirubin AST ALT Alkaline Phosphatase Lactate Dehydrogenase Troponin I High Sens B-Natriuretic Peptide Total Protein Albumin Stool Occult Blood Influenza Type A (PCR) Influenza Type B (PCR) RSV RNA Qual (PCR) SARS-CoV-2 RNA (RT-PCR) Blood Type Antibody Screen Crossmatch 01/21/23 01/22/23 01/22/23 20:29 07:05 07:14 WBC 6.1 RBC 3.20 L Hgb 8.6 L Hct 25.3 L MCV 79.1 L MCH 26.9 L MCHC 34.0 RDW 16.0 Plt Count 157 L MPV 10.5 Immature Gran % (Auto) 0.2 Neut % (Auto) 56.3 Lymph % (Auto) 30.1 [place] % (Auto) 10.1 Eos % (Auto) 2.5 Baso % (Auto) 0.8 Lymph # (Auto) 1.8 [place] # (Auto) 0.6 Eos # (Auto) 0.2 Baso # (Auto) 0.1 Abs Immat Gran (auto) 0.01 Absolute Neuts (auto) 3.5 Absolute Nucleated RBC 0.000 Nucleated RBC % (auto) 0.0 PT INR APTT Sodium 137 Potassium 4.1 Chloride 108 Carbon Dioxide 24 Anion Gap 9 L BUN 16 Creatinine 1.64 H Estim Creat Clear Calc 39.9 Estimated GFR 41 POC Glucose 92 104 Random Glucose Fasting Glucose 95 Calcium 8.9 Iron TIBC % Saturation Unsat Iron Binding Ferritin Total Bilirubin AST ALT Alkaline Phosphatase Lactate Dehydrogenase Troponin I High Sens B-Natriuretic Peptide Total Protein Albumin Stool Occult Blood Influenza Type A (PCR) Influenza Type B (PCR) RSV RNA Qual (PCR) SARS-CoV-2 RNA (RT-PCR) Blood Type Antibody Screen Crossmatch 01/22/23 11:08 WBC RBC Hgb Hct MCV MCH MCHC RDW Plt Count MPV Immature Gran % (Auto) Neut % (Auto) Lymph % (Auto) [place] % (Auto) Eos % (Auto) Baso % (Auto) Lymph # (Auto) [place] # (Auto) Eos # (Auto) Baso # (Auto) Abs Immat Gran (auto) Absolute Neuts (auto) Absolute Nucleated RBC Nucleated RBC % (auto) PT INR APTT Sodium Potassium Chloride Carbon Dioxide Anion Gap BUN Creatinine Estim Creat Clear Calc Estimated GFR POC Glucose 104 Random Glucose Fasting Glucose Calcium Iron TIBC % Saturation Unsat Iron Binding Ferritin Total Bilirubin AST ALT Alkaline Phosphatase Lactate Dehydrogenase Troponin I High Sens B-Natriuretic Peptide Total Protein Albumin Stool Occult Blood Influenza Type A (PCR) Influenza Type B (PCR) RSV RNA Qual (PCR) SARS-CoV-2 RNA (RT-PCR) Blood Type Antibody Screen Crossmatch Narrative Narrative: EKG Normal sinus rhythm Minimal voltage criteria for LVH, may be normal variant ( R in aVL ) T wave abnormality, consider inferolateral ischemia Abnormal ECG When compared with ECG of 11-FEB-2014 15:02, T wave inversion now evident in Inferior leads T wave inversion now evident in Anterolateral leads Heart rate has decreased Airway Mallampati Class: IV Denture: Upper and Lower Assessment and Plan Assessment Anesthesia Assessment: Anesthesia Plan Discussed and Chart Reviewed Final Anesthetic Review Family History of Problems with Anesthesia: No History of Problems with Anesthesia: No NPO: Yes ASA Class: IV and Emergency Final Preanesthetic Review: Meds/Allgs Chart Reviewed, Consent Obtained/Reviewed, Anes Risks/Benef Reviewed and DNR Form (If Appl.) Patient Risk: High Procedure Risk: Intermediate Anesthetic Plan Anesthetic Plan: MAC: and Agree w/ Assess. and Plan Disposition: Inp. Admit - IMC
--- NOTE | 2023-01-22 18:04 | P.BOP_ITS ---
Brief Operative Note Date of Service: 01/22/23 Pre-op diagnosis: Iron deficiency anemia Post-op diagnosis: other (Minimal GERD and gastritis, R/O celiac disease, Diverticulosis) Procedure: EGD with biopsies, Colonoscopy to the cecum and TI Surgeon: Moris Levin MD Anesthesia: MAC Was an Stevedoring Superintendent used for this Procedure?: No Estimated blood loss (mL): 2.0 Pathology: other (A. Descending duodenum) Condition: stable Disposition: PACU
--- NOTE | 2023-01-22 18:29 | PM.EVENT ---
Event Note Date of Service: 01/22/23 Event Note: GI Full note dictated Colonoscopy- WNL except for diverticulosis and internal hemorrhoids; no bleeding EGD- WNL except for minimal changes of GERD, hiatal hernia, and gastritis; duodenum biopsied to R/O celiac disease Rec: Advance diet, resume aspirin and Prasugrel in AM 01/23, start PPI and Iron, outpatient small bowel capsule study, F/U CBC's as outpatient. D/W patient and (via phone) in detail. They were comfortable with this plan. Thanks Time Spent With Patient Time: Total time managing care of this patient today ____ minutes.
[2023-01-22] MEDS: Omeprazole 20 MG CAPSULE.DR PO (18:33)
[2023-01-22 20:58] LABS: Glucose, Whole Blood 172 mg/dL (60-115)
[2023-01-22] MEDS: Insulin Lispro 100 UNIT/ML 3 ML VIAL SUBCUT (21:06)
[2023-01-23] VITALS (9 sets, daily range): BP systolic 103–140; BP diastolic 48–62; PULSE 69–97; RESP 16–20; TEMP 36.6–36.9; O2SAT 95–100
[2023-01-23] MEDS: 0.9 % Sodium Chloride Flush 3 ML SYRINGE IVFLUSH ×2 (00:28→08:29)
--- NOTE | 2023-01-23 01:35 | OP_ITS ---
DATE OF SERVICE: 01/22/2023 SURGEON: Moris Levin MD INDICATIONS: The patient presents for evaluation of microcytic iron deficiency anemia. Full consent has been obtained from his for both procedures, including risks of bleeding and perforation. PREOPERATIVE DIAGNOSIS: POSTOPERATIVE DIAGNOSIS: PROCEDURE PERFORMED: Esophagogastroduodenoscopy with biopsies and colonoscopy to the cecum and terminal ileum. ESTIMATED BLOOD LOSS: COMPLICATIONS: ANESTHESIA: Monitored anesthesia care. ASSISTANTS: SPECIMENS: PREOPERATIVE DIAGNOSES: Microcytic anemia and iron deficiency. POSTOPERATIVE DIAGNOSES: Microcytic anemia and iron deficiency, small hiatal hernia with minimal changes of reflux, minimal gastritis, rule out celiac disease, diverticulosis, internal hemorrhoids. DESCRIPTION OF PROCEDURE: The patient was placed in the left lateral decubitus position. The Olympus video gastroscope was passed in the posterior oropharynx and upper esophagus under direct vision. The scope was passed slowly to the distal esophagus. The gastroesophageal junction appeared at 38 cm. There was no esophagitis nor Mercer's esophagus. There was some very minimal irregularity consistent with reflux but no other abnormalities. The scope entered the stomach. There was a small hiatal hernia. The scope was advanced to the pylorus and the duodenum was cannulated to the descending portion. The duodenum including the bulb appeared normal without mass or ulceration. Biopsies were obtained from the 2nd and 3rd portions of duodenum. The scope was withdrawn back in the stomach. The gastric antrum and body had some minimal areas of erythema, but no erosions or ulceration. There was good peristalsis. The scope was retroflexed visualizing the proximal stomach carefully, which appeared normal, without any sign of mass or ulceration. The scope was straightened and withdrawn back to the esophagus. The esophageal mucosa appeared normal. The scope was withdrawn from the patient. He was turned around for the colonoscopy. The digital rectal exam revealed no abnormalities. The Olympus video pediatric colonoscope was entered into the rectum advanced easily to the cecum. Once in the cecum I did identify normal-appearing cecal pouch with appendiceal orifice and a normal-appearing ileocecal valve. The terminal ileum was cannulated and appeared normal. Scope withdrawn back in the colon. The entire cecum and ileocecal valve appeared normal. The scope was slowly withdrawn assessing all mucosal surfaces carefully. Preparation was excellent. I did not visualize any sign of polyps, colitis, nor angiodysplasia. There was a mild amount of sigmoid diverticulosis. In the rectum, scope was retroflexed visualizing internal hemorrhoids, but no other pathology. The rectal mucosa appeared normal. The scope was straightened and withdrawn from the patient. He tolerated the procedure well and was returned to the recovery area in stable condition. IMPRESSION: 1. Small hiatal hernia, minimal changes of reflux. 2. Minimal changes of gastritis. 3. Rule out celiac disease. 4. Diverticulosis. 5. Internal hemorrhoids. PLAN: The patient will have his diet advanced. He will start a PPI and be discharged on that. He can be started back on his blood thinners by tomorrow including the aspirin and his previous prasugrel. He may eventually need an outpatient small bowel video capsule study. He should avoid all NSAIDs long-term. He should start an oral iron supplement as well. This has been discussed with his this evening. MD ELAINE Valencia/CRESENCIO / [phone] MTDD
[2023-01-23] MEDS: Omeprazole 20 MG CAPSULE.DR PO (06:29)
--- NOTE | 2023-01-23 07:28 | HO.POSTANES ---
Post Anesthesia Evaluation Post Anesthesia Evaluation Date of Service: 01/23/23 Vital Signs: Vital Signs Temp Pulse Resp BP Pulse Ox O2 Del Method 01/23/23 03:08 98.3 F 85 18 103/48 L 95 Room Air 01/23/23 00:00 98.4 F 97 20 106/48 L 96 Room Air Anesthesia: Monitored Mental Status: Awake Pain Control: Satisfactory Nausea/Vomiting: None Hydration: Adequate Anesthesia-Related Issues: No Anes. Related Issues
[2023-01-23 07:57] LABS: MANUAL DIFF FLAG NO
[2023-01-23 08:10] LABS: Basophils Percent Auto 0.2 % (0-2); Hemoglobin 8.1 g/dl (14.0-18.0); Imm Gran Abs Auto 0.02 X10*3/uL (0.00-0.03); Imm Gran Pct Auto 0.4 % (0.0-0.4); Lymphocytes Absolute Auto 0.9 X10*3/uL (1.2-4.9); Lymphocytes Percent Auto 16.7 % (20-40); Mean Corpuscular HGB Conc 33.8 g/dl (31.0-36.0); Mean Corpuscular Hemoglobin 27.1 pg (27.0-33.0); Mean Corpuscular Volume 80.3 fL (80.0-98.0); Mean Platelet Volume 10.3 fL (9.4-12.4); Monocytes Absolute Auto 0.4 X10*3/uL (0.1-1.2); Monocytes Percent Auto 6.7 % (2-11); Neutrophils Absolute Auto 4.2 x10*3/uL (2.0-8.3); Platelet Count 149 X10*3/uL (160-400); Red Blood Count 2.99 X10*6/uL (4.60-5.80); Red Cell Distribution Width 16.5 % (11.0-16.0); White Blood Count 5.5 X10*3/uL (4.8-10.8)
[2023-01-23 08:21] LABS: Anion Gap 12 (12-20); Blood Urea Nitrogen 21 mg/dL (9-16); Calcium 9.3 mg/dL (8.4-10.2); Carbon Dioxide 22 mmol/L (22-29); Chloride 108 mmol/L (96-108); Creatinine Clr Calc Pharmacy 35.7; Estimated Glomerular Filt Rate 36; Glucose Random 220 mg/dL (60-115); Potassium 4.6 mmol/L (3.3-5.1); Sodium 137 mmol/L (135-145)
[2023-01-23 08:24] LABS: Glucose, Whole Blood 171 mg/dL (60-115)
[2023-01-23] MEDS: Insulin Lispro 100 UNIT/ML 3 ML VIAL SUBCUT ×2 (08:27→12:35)
[2023-01-23] MEDS: Ferrous Sulfate 324 MG TABLET.DR PO (08:28)
[2023-01-23] MEDS: Aspirin 81 MG TAB.CHEW PO (08:28)
[2023-01-23] MEDS: Isosorbide Mononitrate 30 MG TAB.ER.24H PO (08:28)
[2023-01-23] MEDS: Pravastatin Sodium 20 MG TABLET PO (08:28)
[2023-01-23] MEDS: allopurinoL 100 MG TABLET PO (08:36)
[2023-01-23 12:22] LABS: Glucose, Whole Blood 191 mg/dL (60-115)
--- NOTE | 2023-01-23 14:06 | PM.PNCARD ---
Subjective Subjective Date of Service: 01/23/23 Interval history: Seen and examined at bedside. Asymptomatic. Physical Exam Vital Signs: Last Vital Signs Temp 97.9 F 01/23/23 12:14 Pulse 79 01/23/23 12:14 Resp 16 01/23/23 12:14 BP 139/59 L 01/23/23 12:14 Pulse Ox 100 01/23/23 10:25 O2 Del Method Room Air 01/23/23 10:25 BMI result Body Mass Index 24.8 GENERAL APPEARANCE: in no acute distress, pleasant. NECK: no carotid bruit, no jugular venous distention. SKIN: no suspicious lesions, warm and dry. HEART: no murmurs, regular rate and rhythm. LUNGS: clear to auscultation bilaterally. ABDOMEN: soft, nontender. EXTREMITIES: no edema. PERIPHERAL PULSES: equal. NEUROLOGIC: No gross deficits, AAO X 3 Objective Labs and Meds 01/23/23 06:50 01/23/23 06:50 Lab results: Laboratory Results - last 24 hr 01/20/23 01/22/23 01/23/23 07:33 20:26 06:50 WBC 5.5 RBC 2.99 L Hgb 8.1 L Hct 24.0 L MCV 80.3 MCH 27.1 MCHC 33.8 RDW 16.5 H Plt Count 149 L MPV 10.3 Immature Gran % (Auto) 0.4 Neut % (Auto) 76.0 H Lymph % (Auto) 16.7 L [place] % (Auto) 6.7 Eos % (Auto) 0.0 Baso % (Auto) 0.2 Lymph # (Auto) 0.9 L [place] # (Auto) 0.4 Eos # (Auto) 0.0 Baso # (Auto) 0.0 Abs Immat Gran (auto) 0.02 Absolute Neuts (auto) 4.2 Absolute Nucleated RBC 0.000 Nucleated RBC % (auto) 0.0 Sodium 137 Potassium 4.6 Chloride 108 Carbon Dioxide 22 Anion Gap 12 BUN 21 H Creatinine 1.83 H Estim Creat Clear Calc 35.7 Estimated GFR 36 POC Glucose 172 H Random Glucose 220 H Calcium 9.3 Blood Type A Positive Antibody Screen NEGATIVE Crossmatch See Detail 01/23/23 01/23/23 01/23/23 08:19 10:56 12:18 WBC RBC Hgb Hct MCV MCH MCHC RDW Plt Count MPV Immature Gran % (Auto) Neut % (Auto) Lymph % (Auto) [place] % (Auto) Eos % (Auto) Baso % (Auto) Lymph # (Auto) [place] # (Auto) Eos # (Auto) Baso # (Auto) Abs Immat Gran (auto) Absolute Neuts (auto) Absolute Nucleated RBC Nucleated RBC % (auto) Sodium Potassium Chloride Carbon Dioxide Anion Gap BUN Creatinine Estim Creat Clear Calc Estimated GFR POC Glucose 171 H 191 H Random Glucose Calcium Blood Type A Positive Antibody Screen NEGATIVE Crossmatch See Detail Progress Note: A&P Assessment and plan (1) Cardiomyopathy: Status: Acute (2) CAD (coronary artery disease): Status: Acute Plan 82 male with cardiomyopathy and recent PCI to RCA in Dec 2022 presenting with GI blood loss and anemia. Endoscopy has not shown any significant issue. Change Prasugrel to Plavix. Can go home and f/u with [facility]. Time Spent With Patient Time: Total time managing care of this patient today ____ minutes. Progress Note: Quality Stroke Does the patient have a stroke diagnosis?: No Procedures Date of Service Date of Service: 01/23/23
--- NOTE | 2023-01-23 14:24 | PM.DS ---
DS: Providers Provider Date of Service: 01/23/23 Date of admission: 01/20/23 11:03 Primary care physician: Unknown Physician Consults: 01/20/23 11:03 Consult to Gastroenterology Routine Consulting Provider: Moris Levin Reason for consultation: symptomatic anemia; CAD on DAPT Has provider been notified: No 01/20/23 11:20 Consult to Cardiology Routine Consulting Provider: [facility] Reason for consultation: symptomatic anemia; CAD on DAPT Has provider been notified: No DS: Diagnosis Discharge Diagnosis (1) Cardiomyopathy: Status: Acute (2) CAD (coronary artery disease): Status: Acute DS: Summary Hospital Course Hospital Course: This is an 82 year old male with history of CAD on DAPT who was sent to the ED after outpatient labs revealed anemia. He has had shortness of breath for the past several weeks. He had his most recent stent placed in mid-december and it was thought that his shortness of would improve after the procedure. His chest pain has improved however his shortness has persisted. He reports shortness of breath with minimal exertion. He has no associated dizziness a. Due to persistent shortness of breath he had outpatient labs obtained on and the results indicated worsening anemia and he was recommended to come to the emergency department for further workup. He denies any melena or bright red blood per rectum no hematemesis. Last colonoscopy approximately 10 years ago was reportedly unremarkable. Does not recall being told of previous anemia however records from [facility] indicate anemia dating back to at least April of this year. emergency department his H-H was 7.2/21 with associated thrombocytopenia with a platelet level of 155. remainder of his workup feeling a unremarkable. Troponin and BNP as well as chest x-ray were obtained and were negative. Orthostatic blood pressures were obtained and were noted to be positive although patient denies any dizziness upon standing. One unit of blood was ordered and transfusion was initiated in the emergency department and the decision was made to admit him to the hospital for further evaluation of symptomatic anemia. 82-year-old man treated for acute iron deficiency anemia. He was seen evaluated by Gastroenterology. Had a total of 2 units packed red blood cells with good effect. Had iron infusion and was started on oral iron supplementation. Patient had colonoscopy and endoscopy with diverticulosis, internal hemorrhoids, hiatal hernia, minimal gastritis. Biopsy sent and are pending patient can resume aspirin and was changed from prasugrel to Plavix. Continue on PPI and iron supplementation. Plan is for outpatient capsule endoscopy, patient will follow-up with Gastroenterology. Check CBC in 1 week. History of coronary artery disease. Continue aspirin, statin, prasugrel changed to Plavix Diabetes mellitus type 2. Continue home medications Hypertension. Continue lisinopril and amlodipine CKD stage 3. Baseline during admission Asthma. No exacerbation during admission. Continue home inhalers Time Attestation Discharge coordination time: Greater than 30 minutes Quality: Safe Use of Opioids Does Pt have an Active Cancer Diagnosis on the Problem List?: No Quality: Stroke Does the patient have a stroke diagnosis?: No Physical Exam Vital Signs: Vital Signs: Last Vital Signs Temp 97.9 F 01/23/23 12:14 Pulse 79 01/23/23 12:14 Resp 16 01/23/23 12:14 BP 139/59 L 01/23/23 12:14 Pulse Ox 100 01/23/23 10:25 O2 Del Method Room Air 01/23/23 10:25 BMI result Body Mass Index 24.8 Appearing in no acute distress head is normocephalic atraumatic eyes pupils are PERRLA sclera is anicteric mouth throat mucous membranes are intact and moist neck is supple no lymphadenopathy, no JVD noted lung sounds are clear to auscultation heart regular rate rhythm, clear S1, S2 positive bowel sounds, abdomen is soft, nontender neuro patient is alert x3, no focal deficits DS: Data Data Completed and Pending Pending studies at discharge: Pending at discharge 01/22/23 17:06 Surgical [PTH] Routine Labs on day of discharge: Laboratory Results - last 24 hr 01/20/23 01/22/23 01/23/23 07:33 20:26 06:50 WBC 5.5 RBC 2.99 L Hgb 8.1 L Hct 24.0 L MCV 80.3 MCH 27.1 MCHC 33.8 RDW 16.5 H Plt Count 149 L MPV 10.3 Immature Gran % (Auto) 0.4 Neut % (Auto) 76.0 H Lymph % (Auto) 16.7 L [place] % (Auto) 6.7 Eos % (Auto) 0.0 Baso % (Auto) 0.2 Lymph # (Auto) 0.9 L [place] # (Auto) 0.4 Eos # (Auto) 0.0 Baso # (Auto) 0.0 Abs Immat Gran (auto) 0.02 Absolute Neuts (auto) 4.2 Absolute Nucleated RBC 0.000 Nucleated RBC % (auto) 0.0 Sodium 137 Potassium 4.6 Chloride 108 Carbon Dioxide 22 Anion Gap 12 BUN 21 H Creatinine 1.83 H Estim Creat Clear Calc 35.7 Estimated GFR 36 POC Glucose 172 H Random Glucose 220 H Calcium 9.3 Blood Type A Positive Antibody Screen NEGATIVE Crossmatch See Detail 01/23/23 01/23/23 01/23/23 08:19 10:56 12:18 WBC RBC Hgb Hct MCV MCH MCHC RDW Plt Count MPV Immature Gran % (Auto) Neut % (Auto) Lymph % (Auto) [place] % (Auto) Eos % (Auto) Baso % (Auto) Lymph # (Auto) [place] # (Auto) Eos # (Auto) Baso # (Auto) Abs Immat Gran (auto) Absolute Neuts (auto) Absolute Nucleated RBC Nucleated RBC % (auto) Sodium Potassium Chloride Carbon Dioxide Anion Gap BUN Creatinine Estim Creat Clear Calc Estimated GFR POC Glucose 171 H 191 H Random Glucose Calcium Blood Type A Positive Antibody Screen NEGATIVE Crossmatch See Detail Discharge Plan Discharge Anticipated Discharge Date/Time: 01/23/23 07:42 Patient Disposition: Home, Self-Care Discharge Diagnosis: Anemia Referrals: Moris Levin MD [Physician] - 2 Weeks ( follow-up for capsule endoscopy) Discharge Medications: New clopidogrel [Plavix] 75 mg tablet 75 mg PO DAILY Qty: 30 0RF Continued lisinopril 20 mg tablet 20 mg PO DAILY amlodipine 5 mg tablet 5 mg PO DAILY allopurinol 100 mg tablet 100 mg PO BID glipizide 2.5 mg tablet extended release 24hr 2.5 mg PO DAILY pravastatin 20 mg tablet 20 mg PO DAILY albuterol sulfate 90 mcg/actuation HFA aerosol inhaler 2 puff inhalation Q4H PRN (Reason: wheezing) isosorbide mononitrate 30 mg tablet extended release 24 hr 30 mg PO DAILY aspirin 81 mg Tablet,Delayed Release (Dr/Ec) 81 mg PO DAILY Anoro Ellipta 62.5-25 mcg/actuation blister with device 1 inh INHALATION DAILY Discontinued prasugrel 10 mg tablet 10 mg PO DAILY Discharge Orders: Discharge Order (Routine); Ordered 01/23/23 Ordered By: Tegan Crum Diet: Advance to usual diet Activity on Discharge: As tolerated Stand Alone Forms: Patient Portal Discharge page Care Plan Goals: Your prasugrel was stopped and Plavix 75 mg daily was started Health Concerns: Acute on chronic iron deficiency anemia Plan of Treatment: Follow-up with primary care provider as needed Follow-up with Gastroenterology for capsule endoscopy Take all medications as prescribed Assessment: see discharge summary
--- NOTE | 2023-01-23 15:04 | MHC.CM.PN ---
Pt is medically cleared for D/C home self-care, pts will transport him home.
[2023-01-23 15:56] LABS: Glucose, Whole Blood 155 mg/dL (60-115)
--- NOTE | 2023-01-23 17:47 | P.CDIM_ITS ---
PROVIDER RESPONSE TEXT: To clarify, the appropriate diagnosis supported by the clinical indicators: Other (explain): minimal changes of gastritis QUERY TEXT: PHYSICIAN'S DOCUMENTATION REQUEST Date of Query: 01/23/2023 09:32 AM EST Patient Name: Feroz Parsons Admit Date: 01/20/2023 Dear Tegan Crum, A review of the medical record indicates additional documentation may be needed. Please review below and update the documentation accordingly. Clinical Indicators: GI: EGD - WNL except for minimal changes of GERD, hiatal hernia and gastritis; Advance diet, resume aspirin and Prasugrel in am. Clarify which of the following accurately represents the acuity of the Gastritis: Possible options might include: Acute Acute on chronic Chronic stable condition Other (explain) Clinically unable to determine (explain) Thank you, Doreen Rowell, CCS, CDIS Use of terms such as suspected, likely, concern for, or probable (associated with a specific diagnosi s that is being evaluated, monitored, or treated as if it exists) are acceptable and can be coded in the inpatient se tting, when documented at the time of discharge. Please use your independent medical judgment in providing your response. THIS QUERY IS PART OF THE PERMANENT MEDICAL RECORD
== END 2023-01-23 16:39 | disposition home or self-care (01) | DRG 812 ==
LOC: HO.ED 10:56 → HO.EDOVER 11:07 → HO.IMC 17:40
PROVIDERS: Internal Medicine; Nurse Practitioner Family; Admitting Provider Physician Assistant Medical; Emergency Provider Emergency Medicine; Visit Provider Nurse Practitioner Acute Care
PROC: 0DB98ZX Excision of Duodenum, Via Natural or Artificial Opening Endoscopic, Diagnostic (ICD-10-PCS; principal; 2023-01-22 16:10)
DX: D50.9 Iron deficiency anemia, unspecified (principal); I13.0 Hypertensive heart and chronic kidney disease with heart failure and stage 1 through stage 4 chronic kidney disease, or unspecified chronic kidney disease; I50.22 Chronic systolic (congestive) heart failure; I42.9 Cardiomyopathy, unspecified; N18.30 Chronic kidney disease, stage 3 unspecified; Z66 Do not resuscitate; K29.70 Gastritis, unspecified, without bleeding; K44.9 Diaphragmatic hernia without obstruction or gangrene; K57.30 Diverticulosis of large intestine without perforation or abscess without bleeding; K64.8 Other hemorrhoids; D63.1 Anemia in chronic kidney disease; I25.10 Atherosclerotic heart disease of native coronary artery without angina pectoris; E11.22 Type 2 diabetes mellitus with diabetic chronic kidney disease; J45.909 Unspecified asthma, uncomplicated; Z20.822 Contact with and (suspected) exposure to COVID-19; Z95.5 Presence of coronary angioplasty implant and graft; Z87.891 Personal history of nicotine dependence; Z79.02 Long term (current) use of antithrombotics/antiplatelets; Z79.82 Long term (current) use of aspirin; Z79.84 Long term (current) use of oral hypoglycemic drugs; Z79.899 Other long term (current) drug therapy
CPT/HCPCS: 0241U; 36415; 71045; 80048; 80053; 82272; 82728; 82947; 83540; 83615; 83880; 84484; 85025; 85027; 85610; 85730; 86850; 86900; 86901; 86923; 88305; 93005; 99285; J1756; J2371; J2704; J3010; P9016

== ENCOUNTER → 2023-01-20 11:03 | Outpatient (BNV) | payer MEDICARE, OTHER, SELFPAY | PROVIDERS: Admitting Provider Physician Assistant Medical; Emergency Provider Emergency Medicine; Visit Provider Internal Medicine | DX: I42.9 Cardiomyopathy, unspecified (principal); I25.10 Atherosclerotic heart disease of native coronary artery without angina pectoris | CPT/HCPCS: 99223; 99232 ==

== ENCOUNTER → 2023-01-20 11:03 | Outpatient (BNV) | payer MEDICARE, OTHER, SELFPAY | PROVIDERS: Admitting Provider Physician Assistant Medical; Emergency Provider Emergency Medicine; Visit Provider Physician Assistant Medical | DX: I42.9 Cardiomyopathy, unspecified (principal); I25.10 Atherosclerotic heart disease of native coronary artery without angina pectoris | CPT/HCPCS: 99223; 99232; 99239 ==

== ENCOUNTER 2023-02-05 14:33 | Outpatient (REF) | payer MEDICARE, OTHER, SELFPAY ==
[2023-02-05 15:25] LABS: Hematocrit 31.9 % (42.0-52.0); Mean Corpuscular HGB Conc 34.5 g/dl (31.0-36.0); Mean Corpuscular Volume 81.2 fL (80.0-98.0); Mean Platelet Volume 10.4 fL (9.4-12.4); Platelet Count 240 X10*3/uL (160-400); Red Blood Count 3.93 X10*6/uL (4.60-5.80); White Blood Count 8.5 X10*3/uL (4.8-10.8)
== END 2023-02-05 14:34 | disposition home or self-care (01) ==
LOC: HO.LAB 14:33
PROVIDERS: Visit Provider Nurse Practitioner Acute Care
DX: D64.9 Anemia, unspecified (principal)
CPT/HCPCS: 36415; 85027

== ENCOUNTER 2023-02-06 10:41 | Outpatient (REF) | payer MEDICARE, OTHER, SELFPAY ==
[2023-02-06 12:50] LABS: Ferritin 58 ng/mL (20-250); Iron 71 mcg/dL (45-160); Percent Iron Saturation 25 % (15-50); Total Iron Binding Capacity 287 mcg/dL (228-428); Unsaturated Iron Binding 216 ug/dL
== END 2023-02-06 10:42 | disposition home or self-care (01) ==
LOC: HO.LAB 10:41
PROVIDERS: Visit Provider Internal Medicine
DX: D50.9 Iron deficiency anemia, unspecified (principal)
CPT/HCPCS: 36415; 82728; 83540

== ENCOUNTER 2023-12-11 13:39 | Outpatient (REF) | payer MEDICARE, OTHER, SELFPAY ==
[2023-12-11 13:59] LABS: MANUAL DIFF FLAG NO
[2023-12-11 14:19] LABS: Basophils Absolute Auto 0.1 X10*3/uL (0.0-0.2); Basophils Percent Auto 0.7 % (0-2); Eosinophils Absolute Auto 0.2 X10*3/uL (0.0-0.4); Eosinophils Percent Auto 2.2 % (0-4); Hemoglobin 13.7 g/dl (14.0-18.0); Imm Gran Abs Auto 0.03 X10*3/uL (0.00-0.03); Imm Gran Pct Auto 0.4 % (0.0-0.4); Lymphocytes Absolute Auto 2.2 X10*3/uL (1.2-4.9); Lymphocytes Percent Auto 30.3 % (20-40); Mean Corpuscular HGB Conc 36.1 g/dl (31.0-36.0); Mean Corpuscular Hemoglobin 33.3 pg (27.0-33.0); Mean Corpuscular Volume 92.2 fL (80.0-98.0); Mean Platelet Volume 10.2 fL (9.4-12.4); Monocytes Absolute Auto 0.7 X10*3/uL (0.1-1.2); Neutrophils Absolute Auto 4.1 x10*3/uL (2.0-8.3); Neutrophils Percent Auto 56.4 % (45-73); Platelet Count 132 X10*3/uL (160-400); Red Blood Count 4.12 X10*6/uL (4.60-5.80); White Blood Count 7.3 X10*3/uL (4.8-10.8)
[2023-12-11 14:56] LABS: Iron 115 mcg/dL (45-160); Percent Iron Saturation 39 % (15-50); Total Iron Binding Capacity 294 mcg/dL (228-428); Unsaturated Iron Binding 179 ug/dL
[2023-12-11 15:06] LABS: Ferritin 43 ng/mL (20-250)
== END 2023-12-11 13:40 | disposition home or self-care (01) ==
LOC: HO.LAB 13:39
PROVIDERS: Visit Provider Internal Medicine
DX: D50.9 Iron deficiency anemia, unspecified (principal)
CPT/HCPCS: 36415; 82728; 83540; 85025

== ENCOUNTER 2024-08-21 15:08 | Inpatient (IN) | payer MEDICARE, OTHER, SELFPAY ==
[2024-08-21] VITALS (9 sets, daily range): BP systolic 127–186; BP diastolic 43–64; PULSE 61–77; RESP 10–18; TEMP 36.6–36.8; O2SAT 98–100; BMI 23.5
--- NOTE | ~2024-08-21 | XR_ITS ---
EXAMINATION: XR CHEST CLINICAL INFORMATION: short of breath COMPARISON: 01/20/2023. TECHNIQUE: 2 views of the chest were obtained. FINDINGS: Dual lead AICD device in the left hemithorax, with leads extending into the right atrium and right ventricle. Borderline cardiac enlargement. Coronary stents noted. The hilar and mediastinal contours are normal. The lungs are clear bilaterally. Mild biapical pleural thickening. There is no pneumothorax or pleural effusion. There is no focal osseous or soft tissue abnormality. XR/XR chest 2V IMPRESSION: No active pulmonary disease. Electronically signed by: Riccardo Mckeon MD 08/21/2024 03:28 PM EDT
--- NOTE | ~2024-08-21 | CT_ITS ---
CLINICAL HISTORY: anemia, r o diverticulitis CT abdomen and pelvis without contrast Comparison: None provided Findings: The lung bases are clear. The gallbladder and solid organs are within normal limits. No renal stones. No bowel obstruction, pneumoperitoneum, or pneumatosis. Pelvic contents unremarkable. Normal appendix. No acute fracture. IMPRESSION: No acute findings. This document has been electronically signed by: Riccardo Fermin MD on 08/21/2024 20:23:41
--- NOTE | 2024-08-21 15:13 | ED.SOB ---
HPI - SOB/Dyspnea General Chief Complaint: General Medical Stated Complaint: SOB; Blood transfusion Time Seen by Provider: 08/21/24 16:51 Source: patient and RN notes reviewed Mode of arrival: ambulatory Limitations: no limitations History of Present Illness ED Provider: Kristel Chase PA-C HPI Narrative: 83 yo M hx CAD, cardiomyopathy, CKD, asthma, DM on Plavix, who presents emergency department with concerns of exertion shortness for breath for the last 2-3 months. Patient reports that he previously was told he was anemic, and he did have a blood transfusion approximately a year and a half ago. He denies any recent bleeding, melena, or hematochezia. He denies any fevers, chills, chest pain, abdominal pain, nausea, vomiting or diarrhea. No other complaints or concerns at this time. MD elicited complaint: shortness of breath Pertinent past history: diabetes Onset (ago): month(s) Timing: constant Severity: moderate Exacerbating factors: nothing Relieving factors: nothing Known history of: diabetes Associated symptoms: denies other symptoms Treatment prior to arrival: none Related Data Home Medications ?Medication ?Instructions ?Recorded ?Confirmed albuterol sulfate 90 mcg/actuation 2 puff inhalation Q4H PRN wheezing 01/20/23 01/20/23 aerosol inhaler allopurinol 100 mg tablet 100 mg PO BID 01/20/23 01/20/23 amlodipine 5 mg tablet 5 mg PO DAILY 01/20/23 01/20/23 aspirin 81 mg tablet,delayed 81 mg PO DAILY 01/20/23 01/20/23 release glipizide 2.5 mg tablet, extended 2.5 mg PO DAILY 01/20/23 01/20/23 release 24 hr isosorbide mononitrate 30 mg 30 mg PO DAILY 01/20/23 01/20/23 tablet,extended release 24 hr lisinopril 20 mg tablet 20 mg PO DAILY 01/20/23 01/20/23 pravastatin 20 mg tablet 20 mg PO DAILY 01/20/23 01/20/23 umeclidinium 62.5 mcg-vilanterol 1 inh inhalation DAILY 01/20/23 01/20/23 25 mcg/actuation powdr for inhalation (Anoro Ellipta) Previous Rx's ?Medication ?Instructions ?Recorded clopidogrel 75 mg tablet (Plavix) 75 mg PO DAILY #30 tabs 01/23/23 Allergies Allergy/AdvReac Type Severity Reaction Status Date / Time Penicillins (PENICILLINS) Allergy Unknown UNKNOWN Verified 08/21/24 15:17 Review of Systems Review of Systems: Yes all other systems are reviewed and are negative Constitutional: Constitutional: Reports as per HPI [facility] Past Medical History Medical History (Updated 08/21/24 @ 19:32 by MEAGAN Perla) Cardiomyopathy CKD (chronic kidney disease) Asthma Diabetes CAD (coronary artery disease) Surgical History (Updated 01/20/23 @ 11:22 by MEAGAN Reynoso) Stented coronary artery Social History Social History (Updated 01/20/23 @ 11:24 by MEAGAN Reynoso) Alcohol intake: current Alcohol intake frequency: 0-2 drinks per day Patient Tobacco Use Status: Former Tobacco user Smoked in Last 30 Days: No Use of substances other than those prescribed or required for medical reasons: No Advance Directives: No Advance Directives Information Provided: Yes Do you have a plan to hurt others: No Plan service: Yes Physical Exam Vital Signs: Vital Signs: Last Vital Signs Temp 97.9 F 08/21/24 18:46 Pulse 63 08/21/24 18:46 Resp 16 08/21/24 18:46 BP 163/61 H 08/21/24 18:46 Pulse Ox 100 08/21/24 18:14 O2 Del Method Room Air 08/21/24 18:14 BMI result Body Mass Index 23.5 Const: General: cooperative, comfortable and no acute distress Orientation/consciousness: patient oriented x3 Limitations: no limitations HEENT: Head: Yes normal to inspection, Yes normocephalic and Yes atraumatic Ears: hearing grossly normal bilaterally General nose exam: Normal external nose present Face and sinus: Yes normal facial exam Mouth: Normal oral and palatal mucosa present, oropharynx normal and moist mucous membranes Throat: Yes posterior oropharynx normal Eyes: General: appearance normal, both eyes and all related structures Eyelids: Yes eyelids normal Conjunctivae: conjunctivae normal Sclerae: sclerae normal Pupils: Equal, round and reactive pupils present EOM: EOMs intact bilaterally Neck: Neck: Yes normal visual inspection, Yes full ROM and Yes no lymphadenopathy Lymphatic: no lymphadenopathy noted Chest: Chest palpation & inspection: normal inspection of the chest Resp: Effort & Inspection: normal respiratory effort and able to speak in complete sentences Auscultation: clear to auscultation bilaterally, no crackles, no rales, no rhonchi and no wheezes Cardio: Rate: regular rate Rhythm: regular rhythm Heart sounds: S1 normal heart sound present and S2 normal heart sound present GI: Other: Abdomen is soft, nontender, nondistended Rectal examination performed with ESME Blanco present at all times. Stool is light brown in color, stool occult test positive. No hemorrhoids noted. Good rectal tone. Inspection: Yes normal to inspection Skin: General skin exam: no rashes or lesions noted Trauma: no lacerations or abrasions Wounds: no wounds Neuro: General: patient oriented x3 and moves all extremities Cranial nerves: Yes Equal, round and reactive pupils present Extrem: General: Yes normal to inspection Right upper extremity: normal to inspection Left upper extremity: normal to inspection Right lower extremity: normal to inspection Left lower extremity: normal to inspection Course Course Course Narrative: 08/21/24 1513 MEAGAN Weaver This is a Rapid Medical Examination (RME) performed by Martin Rodriguez PA-C in triage. Full HPI, ROS, assessment and treatment plan per primary provider in the Main ED. Hx: 83 yo M hx CAD, cardiomyopathy, CKD, asthma, DM here w/ SOB and light headedness on exertion x2-3 months. PCP told patinet he was anemic and needs a blood transfusion. no recent bleeding, melena, hematochezia. PE/vitals: lungs clear, no pitting edema. Plan: labs, ekg, cxr Medications Administered Discontinued Medications Generic Name Dose Route Start Last Admin Trade Name Freq PRN Reason Stop Dose Admin Sodium Zirconium Cyclosilicate 10 gm 08/21/24 17:36 08/21/24 18:18 Sodium Zirconium Cyclosilicate 10 Gm Powd.Pack PO 08/21/24 17:37 10 gm ONCE ONE Administration Medical Decision Making Medical Decision Making [facility] Narrative: 83 yo M hx CAD, cardiomyopathy, CKD, asthma, DM on Plavix, who presents emergency department with concerns of exertion shortness for breath for the last 2-3 months. On arrival, vital signs within normal limits. He is speaking in full sentences under no acute distress. Patient states that he has felt short of breath for several months. He was found to be anemic and was told to report to the emergency room for further evaluation. Labs were performed prior to my evaluation, he has no leukocytosis, he has a microcytic anemia with an H&H of 7 and 21. Hyperkalemic at 5.6 > given lokelma creatinine elevated at 1.69, random glucose 190, AST ALT slightly elevated at 63 and 50. Creatinine around his baseline. Stool occult is positive at bedside. He has no bloody or black stool. No hemoptysis. It is unclear what is causing him to be anemic however he did have episodes of anemia requiring transfusion, last time and approximately 2 years ago. He had an endoscopy and colonoscopy which revealed diverticulosis and internal hemorrhoids, no active bleeding. EKG was within normal limits, GERD, hiatal hernia and gastritis noted. Just presentation was consistent with a presentation that he has today. I discussed this case with my attending physician, Dr. Lake. Recommends 2 units of packed red blood cells. Will also obtain CT abdomen and pelvis to rule out any evidence of diverticulitis or any acute process. He is unable to receive IV contrast given creatinine function. Chest x-ray was also performed, revealing no active pulmonary disease. Patient needing hospital admission due to symptomatic anemia requiring transfusion. Will discussed with hospitalist for transfer of care. > discussed case with hospitalist, Dr. Almaguer, deferring until CAT scan returns. Given signed out to my colleague, MEAGAN Mcclure pending CT Differential Diagnosis Differential Diagnoses: The differential diagnosis associated with the presentation includes Anemia, pneumonia, diverticulitis, PE - patient has no clinical findings concerning for DVT, no hypoxia or tachypnea. CHF Admission/Observation Consideration of admission/observation: Escalation of care including admission/observation considered Lab Data [facility] Lab Attestation statement: I reviewed the patient's lab results. See MDM and course 08/21/24 15:42 08/21/24 15:42 Labs: Lab Results 08/21/24 08/21/24 08/21/24 Range/Units 15:42 16:21 17:24 WBC 6.0 (4.8-10.8) X10*3/uL RBC 2.64 L D (4.60-5.80) X10*6/uL Hgb 7.0 L* D (14.0-18.0) g/dl Hct 21.0 L* D (42.0-52.0) % MCV 79.5 L (80.0-98.0) fL MCH 26.5 L (27.0-33.0) pg MCHC 33.3 (31.0-36.0) g/dl RDW 16.4 H (11.0-16.0) % Plt Count 168 D (160-400) X10*3/uL MPV 9.3 L (9.4-12.4) fL Immature Gran % (Auto) 0.2 (0.0-0.4) % Neut % (Auto) 50.6 (45-73) % Lymph % (Auto) 36.3 (20-40) % Burnet % (Auto) 9.2 (2-11) % Eos % (Auto) 2.9 (0-4) % Baso % (Auto) 0.8 (0-2) % Lymph # (Auto) 2.2 (1.2-4.9) X10*3/uL Burnet # (Auto) 0.6 (0.1-1.2) X10*3/uL Eos # (Auto) 0.2 (0.0-0.4) X10*3/uL Baso # (Auto) 0.1 (0.0-0.2) X10*3/uL Abs Immat Gran (auto) 0.01 (0.00-0.03) X10*3/uL Absolute Neuts (auto) 3.0 (2.0-8.3) x10*3/uL Absolute Nucleated RBC 0.000 (0.0-0.012) X10*3/uL Nucleated RBC % (auto) 0.0 (0.0-0.2) /100WBC Sodium 142 (135-145) mmol/L Potassium 5.6 H (3.3-5.1) mmol/L Chloride 113 H (96-108) mmol/L Carbon Dioxide 22 (22-29) mmol/L Anion Gap 13 (12-20) BUN 14 (9-16) mg/dL Creatinine 1.69 H (0.5-1.4) mg/dL Estim Creat Clear Calc 38.0 Estimated GFR 39 Random Glucose 190 H (60-115) mg/dL Calcium 9.0 (8.4-10.2) mg/dL Magnesium 1.9 (1.6-2.6) mg/dL Total Bilirubin 0.5 (0.0-1.0) mg/dL AST 63 H (5-37) U/L ALT 50 H (0-40) U/L Alkaline Phosphatase 50 (39-117) U/L Troponin I High Sens 11.7 (<3.5-35.0) ng/L B-Natriuretic Peptide 98 (<100) pg/mL Total Protein 6.4 L (6.5-8.0) g/dL Albumin 3.8 (3.5-5.0) g/dL Stool Occult Blood POSITIVE (NEGATIVE) Blood Type A Positive Antibody Screen NEGATIVE Crossmatch See Detail Independent Interpretation I performed an independent interpretation of an: EKG Interpretation: Normal sinus rhythm at a ventricular rate of 72 beats per minute, NM interval 152, QT QTC 444/486. No STEMI. Radiology Impression Discussion of test interpretation with radiology: I have reviewed the radiologist's reading. Radiologist Impression: TECHNIQUE: 2 views of the chest were obtained. FINDINGS: Dual lead AICD device in the left hemithorax, with leads extending into the right atrium and right ventricle. Borderline cardiac enlargement. Coronary stents noted. The hilar and mediastinal contours are normal. The lungs are clear bilaterally. Mild biapical pleural thickening. There is no pneumothorax or pleural effusion. There is no focal osseous or soft tissue abnormality. XR/XR chest 2V IMPRESSION: No active pulmonary disease. Electronically signed by: Riccardo Mckeon MD 08/21/2024 03:28 PM EDT Dictated By: Riccardo Mckeon MD Critical Care Time Critical Care Time Critical Care Time: Yes Total Critical Care Time: 32 Attestation: I have personally provided critical care time exclusive of time spent on separately billable procedures. Time includes review of lab data, radiology results, discussion with consultants, and monitoring for potential decompensation. Intervention performed as documented. Discharge Plan Discharge Clinical Impression: Symptomatic anemia, Hyperkalemia Prescriptions: No Action lisinopril 20 mg tablet 20 mg PO DAILY amlodipine 5 mg tablet 5 mg PO DAILY allopurinol 100 mg tablet 100 mg PO BID glipizide 2.5 mg tablet extended release 24hr 2.5 mg PO DAILY pravastatin 20 mg tablet 20 mg PO DAILY albuterol sulfate 90 mcg/actuation HFA aerosol inhaler 2 puff inhalation Q4H PRN (Reason: wheezing) isosorbide mononitrate 30 mg tablet extended release 24 hr 30 mg PO DAILY aspirin 81 mg Tablet,Delayed Release (Dr/Ec) 81 mg PO DAILY Anoro Ellipta 62.5-25 mcg/actuation blister with device 1 inh INHALATION DAILY clopidogrel [Plavix] 75 mg tablet 75 mg PO DAILY Qty: 30 0RF Print Language: [place]
--- NOTE | 2024-08-21 15:16 | ECG_ITS ---
Test Reason : CHEST PAIN Blood Pressure : */* mmHG Vent. Rate : 72 BPM Atrial Rate : 72 BPM P-R Int : 152 ms QRS Dur : 100 ms QT Int : 444 ms P-R-T Axes : -6 -26 213 degrees QTcB Int : 486 ms Normal sinus rhythm Left ventricular hypertrophy with repolarization abnormality ( R in aVL ) Cannot rule out Septal infarct (cited on or before 20-Jan-2023) Abnormal ECG When compared with ECG of 20-Jan-2023 07:15, QT has lengthened Referred By: Shelly Rodriguez Electronically Signed By: Saurabh Niño
[2024-08-21 15:47] LABS: MANUAL DIFF FLAG NO
[2024-08-21 15:48] LABS: Basophils Absolute Auto 0.1 X10*3/uL (0.0-0.2); Basophils Percent Auto 0.8 % (0-2); Eosinophils Absolute Auto 0.2 X10*3/uL (0.0-0.4); Eosinophils Percent Auto 2.9 % (0-4); Imm Gran Abs Auto 0.01 X10*3/uL (0.00-0.03); Imm Gran Pct Auto 0.2 % (0.0-0.4); Lymphocytes Absolute Auto 2.2 X10*3/uL (1.2-4.9); Lymphocytes Percent Auto 36.3 % (20-40); Mean Corpuscular HGB Conc 33.3 g/dl (31.0-36.0); Mean Corpuscular Hemoglobin 26.5 pg (27.0-33.0); Mean Corpuscular Volume 79.5 fL (80.0-98.0); Mean Platelet Volume 9.3 fL (9.4-12.4); Monocytes Absolute Auto 0.6 X10*3/uL (0.1-1.2); Monocytes Percent Auto 9.2 % (2-11); Neutrophils Percent Auto 50.6 % (45-73); Platelet Count 168 X10*3/uL (160-400); Red Blood Count 2.64 X10*6/uL (4.60-5.80); Red Cell Distribution Width 16.4 % (11.0-16.0)
[2024-08-21 16:03] LABS: Alanine Aminotransferase 50 U/L (0-40); Albumin Level 3.8 g/dL (3.5-5.0); Alkaline Phosphatase 50 U/L (39-117); Anion Gap 13 (12-20); Aspartate Amino Transferase 63 U/L (5-37); Bilirubin Total 0.5 mg/dL (0.0-1.0); Blood Urea Nitrogen 14 mg/dL (9-16); Carbon Dioxide 22 mmol/L (22-29); Chloride 113 mmol/L (96-108); Estimated Glomerular Filt Rate 39; Glucose Random 190 mg/dL (60-115); Magnesium 1.9 mg/dL (1.6-2.6); Potassium 5.6 mmol/L (3.3-5.1); Sodium 142 mmol/L (135-145); Total Protein 6.4 g/dL (6.5-8.0)
[2024-08-21 16:10] LABS: Troponin-I High Sensitivity 11.7 ng/L (<3.5-35.0)
[2024-08-21 16:15] LABS: B Type Natriuretic Peptide 98 pg/mL (<100)
[2024-08-21 17:29] LABS: OBS Int Ctl Valid YES; OBS1 POSITIVE (NEGATIVE)
[2024-08-21] MEDS: Sodium Zirconium Cyclosilicate 10 GM POWD.PACK PO (18:18)
[2024-08-21] MEDS: Pantoprazole Sodium 40 MG/10 ML VIAL 80 MG IVPUSH (19:53)
--- NOTE | 2024-08-21 20:15 | PM.IMHP ---
History of Present Illness Date of Service: 08/21/24 Attending physician on admission: Shan Dubois Chief Complaint: SOB, lightheaded Patient is an 83-year-old male with a past medical history significant for gout, history GI bleed, hypertension, moderate persistent asthma, CAD with KAROLINA 12/25, HFrEF, type 2 diabetes, PAD, HLD and CKD 3, who presented to the ED due to shortness of breath and lightheadedness for the past month. He saw his PCP and they referred him to the ED for a blood transfusion due to anemia. Patient has a history of a GI bleed with findings of gastritis on his endoscopy in 2022. At that time he had a colonoscopy which showed nonbleeding internal hemorrhoids as well. The patient denies any chest pain, nausea, vomiting, abdominal pain, melena or hematochezia. He reports that he is already feeling better since arriving to the ED. Review of Systems Constitutional: Constitutional: Denies body ache(s), Denies chills, Reports fatigue, Denies fever(s) and Denies headache(s) Eyes: Eyes: Denies change in vision and Denies loss of vision ENT: Denies headache(s), Denies nasal congestion, Denies nasal discharge and Denies sore throat Cardiovascular: Cardiovascular: Denies chest pain, Denies rapid heart rate, Denies leg edema, Reports lightheadedness and Reports dyspnea Respiratory: Respiratory: Denies chest congestion, Denies cough, Reports dyspnea and Denies wheezing Gastrointestinal: Gastrointestinal: Denies abdominal pain, Denies melena, Denies hematochezia, Denies nausea and Denies vomiting Genitourinary: Genitourinary: Denies hematuria, Denies urinary frequency and Denies urinary urgency Musculoskeletal: Musculoskeletal: Denies back pain and Denies myalgias Integumentary/Breasts: Skin/Breast: Denies rash Neurologic: Denies confusion, Denies headache(s) and Denies loss of vision Psychiatric: Psychiatric: Denies confusion Endocrine: Endocrine: Reports fatigue Hematologic/Lymphatic: Hematologic/Lymphatic: Denies easy bleeding and Denies easy bruising Allergic/Immunologic: Allergic/Immunologic: Denies wheezing [facility] Medical History (Updated 08/21/24 @ 21:05 by Liliane Luther PA-C) CKD (chronic kidney disease) stage 3, GFR 30-59 ml/min HLD (hyperlipidemia) PAD (peripheral artery disease) Moderate persistent asthma Gout History of GI bleed Cardiomyopathy CKD (chronic kidney disease) Asthma Diabetes CAD (coronary artery disease) Functional capacity: independent ambulation Surgical History (Updated 01/20/23 @ 11:22 by MEAGAN Reynoso) Stented coronary artery Social History (Updated 01/20/23 @ 11:24 by MEAGAN Reynoso) Alcohol intake: current Alcohol intake frequency: 0-2 drinks per day Patient Tobacco Use Status: Former Tobacco user Smoked in Last 30 Days: No Use of substances other than those prescribed or required for medical reasons: No Advance Directives: No Advance Directives Information Provided: Yes Do you have a plan to hurt others: No Plan service: Yes Narrative: Former smoker, no drug use. Drinks 2 shots of nilam thai daily. Meds Allergies Allergy/AdvReac Type Severity Reaction Status Date / Time Penicillins (PENICILLINS) Allergy Unknown UNKNOWN Verified 08/21/24 15:17 Home Medications ?Medication ?Instructions ?Recorded ?Confirmed ?Last Taken ?Type albuterol sulfate 90 mcg/actuation 2 puff inhalation Q4H PRN wheezing 01/20/23 08/21/24 Unknown History aerosol inhaler allopurinol 100 mg tablet 100 mg PO BID 01/20/23 08/21/24 08/21/24 History aspirin 81 mg tablet,delayed 81 mg PO DAILY 01/20/23 08/21/24 08/21/24 History release pravastatin 20 mg tablet 20 mg PO DAILY 01/20/23 08/21/24 08/21/24 History umeclidinium 62.5 mcg-vilanterol 1 inh inhalation DAILY 01/20/23 08/21/24 08/21/24 History 25 mcg/actuation powdr for inhalation (Anoro Ellipta) amiodarone 200 mg tablet 200 mg PO DAILY 08/21/24 08/21/24 08/21/24 History carvedilol 3.125 mg tablet 6.25 mg PO BID 08/21/24 08/21/24 08/21/24 History dapagliflozin propanediol 10 mg 10 mg PO DAILY 08/21/24 08/21/24 08/21/24 History tablet (Farxiga) ferrous fumarate 324 mg (106 mg 324 mg PO DAILY 08/21/24 08/21/24 08/21/24 History iron) tablet isosorbide mononitrate 60 mg 60 mg PO DAILY 08/21/24 08/21/24 08/21/24 History tablet,extended release 24 hr losartan 25 mg tablet 25 mg PO DAILY 08/21/24 08/21/24 08/21/24 History multivitamin 1 tab PO DAILY 08/21/24 08/21/24 08/21/24 History Physical Exam Vital Signs and Narrative: Vital Signs: Last Vital Signs Temp 97.8 F 08/21/24 19:36 Pulse 61 08/21/24 19:36 Resp 10 L 08/21/24 19:36 BP 152/62 H 08/21/24 19:36 Pulse Ox 98 08/21/24 19:36 O2 Del Method Room Air 08/21/24 19:36 BMI result Body Mass Index 23.5 General: AOx3, no acute distress Resp: CTA bilaterally CVS: RRR, +murmur GI: +BS, NT, no distention Skin: Warm, dry Neuro: Cranial nerves II-XII grossly intact bilaterally. Motor grossly intact bilaterally Extremities: No LE edema Psych: Appropriate affect Const: General: No confusion Orientation/consciousness: No confusion Neuro: General: No confusion Results Labs 08/21/24 15:42 08/21/24 15:42 Labs: Laboratory Results - last 24 hr 08/21/24 08/21/24 08/21/24 15:42 16:21 17:24 MCV 79.5 L MCH 26.5 L MCHC 33.3 RDW 16.4 H Plt Count 168 D MPV 9.3 L Immature Gran % (Auto) 0.2 Neut % (Auto) 50.6 Lymph % (Auto) 36.3 Preston % (Auto) 9.2 Eos % (Auto) 2.9 Baso % (Auto) 0.8 Lymph # (Auto) 2.2 Preston # (Auto) 0.6 Eos # (Auto) 0.2 Baso # (Auto) 0.1 Abs Immat Gran (auto) 0.01 Absolute Neuts (auto) 3.0 Absolute Nucleated RBC 0.000 Nucleated RBC % (auto) 0.0 Anion Gap 13 Estim Creat Clear Calc 38.0 Estimated GFR 39 Random Glucose 190 H Calcium 9.0 Magnesium 1.9 Total Bilirubin 0.5 AST 63 H ALT 50 H Alkaline Phosphatase 50 Troponin I High Sens 11.7 B-Natriuretic Peptide 98 Total Protein 6.4 L Albumin 3.8 Stool Occult Blood POSITIVE Blood Type A Positive Antibody Screen NEGATIVE Crossmatch See Detail 08/21/24 19:30 MCV MCH MCHC RDW Plt Count MPV Immature Gran % (Auto) Neut % (Auto) Lymph % (Auto) Preston % (Auto) Eos % (Auto) Baso % (Auto) Lymph # (Auto) Preston # (Auto) Eos # (Auto) Baso # (Auto) Abs Immat Gran (auto) Absolute Neuts (auto) Absolute Nucleated RBC Nucleated RBC % (auto) Anion Gap Estim Creat Clear Calc Estimated GFR Random Glucose Calcium Magnesium Total Bilirubin AST ALT Alkaline Phosphatase Troponin I High Sens 12.0 B-Natriuretic Peptide Total Protein Albumin Stool Occult Blood Blood Type Antibody Screen Crossmatch Imaging Radiologist's Impressions: Impressions Chest X-Ray 08/21/24 14:26 IMPRESSION: No active pulmonary disease. Electronically signed by: Riccardo Mckeon MD 08/21/2024 03:28 PM EDT RP Assessment and Plan (1) Symptomatic anemia: Status: Acute (2) Hyperkalemia: Status: Acute (3) Alcohol use disorder: Status: Acute (4) CKD (chronic kidney disease) stage 3, GFR 30-59 ml/min: Status: Acute Plan Patient is an 83-year-old male with a past medical history significant for gout, history GI bleed, hypertension, moderate persistent asthma, CAD with KAROLINA 12/25, HFrEF, type 2 diabetes, PAD, HLD and CKD 3, who presented to the ED due to shortness of breath and lightheadedness for the past month. Symptomatic anemia, history GI bleed - hemoglobin 7.0, hematocrit 21.0, MCV 79.5 - fecal occult blood test positive - abdominopelvic CT negative for acute findings - history colonoscopy in 2022 with internal hemorrhoids and endoscopy with gastritis and hiatal hernia - receiving 2 units PRBC - started on pantoprazole, continue 40 mg b.i.d. - NPO after midnight - GI consult - monitor CBC and BMP Hyperkalemia, likely secondary to GI bleed - potassium 5.6 - given Lokelma 10 g in ED - recheck BMP now - EKG with NSR, QT lengthened from previous but not prolonged - monitor on tele Alcohol use disorder - patient reports 2 alcoholic beverages daily - monitor CIWA, no history of alcohol withdrawal CKD 3 - creatinine at baseline HTN - continue home meds Type 2 diabetes - not currently on medication - sliding scale insulin Moderate persistent asthma, no acute exacerbation - continue home meds CAD - hold plavix and ASA - continue statin and imdur Gout - continue allopurinol HFrEF, no acute exacerbation - continue farxiga and carvedilol - per cardiology notes, echo 07/25 with EF of 25-30% Med rec pending DNR/DNI VTE prophylaxis: Pneumoboots Patient with acute symptomatic anemia complicated by hyperkalemia, requiring admission for at least 2 midnight stay for blood transfusion, cardiac monitoring and gastroenterology consultation. Quality Stroke Does the patient have a stroke diagnosis?: No VTE Prior VTE?: No VTE Risk Level:: Medical - moderate - high VTE Device Contraindication: N/A - Device Ordered VTE Drug Contraindication: Treatment Not Indicated
[2024-08-21 21:01] LABS: Iron 19 mcg/dL (45-160); Percent Iron Saturation 6 % (15-50); Total Iron Binding Capacity 311 mcg/dL (228-428); Unsaturated Iron Binding 292 ug/dL
--- NOTE | 2024-08-21 21:04 | PHA.MEDREC ---
Addendum entered by Liseth Quiñones RPh 08/21/24 21:37: [facility] reviewed Original Note: Pharmacy Consult ? Medication Reconciliation Pharmacy has completed the medication reconciliation. Spoke to patient to confirm med list. Patient had a list of medications with him. Patient states he is no longer taking Glipizide 2.5 mg, Amlodipine 5 mg, Lisinopril 20 mg and Trelegy Ellipta ( hasn't started yet, *patient still using Anoro Eliptia*). Patient confirmed Isosorbide mono 60 mg. Patient had all his morning medications today.
[2024-08-21 22:03] LABS: Anion Gap 11 (12-20); Blood Urea Nitrogen 13 mg/dL (9-16); Calcium 8.5 mg/dL (8.4-10.2); Carbon Dioxide 22 mmol/L (22-29); Chloride 112 mmol/L (96-108); Creatinine Clr Calc Pharmacy 40.9; Estimated Glomerular Filt Rate 43; Glucose Random 110 mg/dL (60-115); Potassium 4.3 mmol/L (3.3-5.1); Sodium 141 mmol/L (135-145)
[2024-08-21 22:10] LABS: Glucose, Whole Blood 139 mg/dL (60-115)
[2024-08-21] MEDS: Tamsulosin HCL 0.4 MG CAPSULE PO (23:16)
[2024-08-22] VITALS (15 sets, daily range): BP systolic 113–190; BP diastolic 43–75; PULSE 60–78; RESP 14–20; TEMP 36.1–36.9; O2SAT 96–100; BMI 23.5
[2024-08-22] MEDS: Pantoprazole Sodium 40 MG/10 ML VIAL IVPUSH (06:48)
[2024-08-22 06:52] LABS: MANUAL DIFF FLAG NO
[2024-08-22 07:05] LABS: Anion Gap 11 (12-20); Blood Urea Nitrogen 11 mg/dL (9-16); Calcium 8.3 mg/dL (8.4-10.2); Carbon Dioxide 22 mmol/L (22-29); Chloride 111 mmol/L (96-108); Creatinine Clr Calc Pharmacy 45.6; Estimated Glomerular Filt Rate 48; Glucose Random 113 mg/dL (60-115); Potassium 3.7 mmol/L (3.3-5.1); Sodium 140 mmol/L (135-145)
[2024-08-22 07:13] LABS: Basophils Percent Auto 0.6 % (0-2); Eosinophils Absolute Auto 0.2 X10*3/uL (0.0-0.4); Eosinophils Percent Auto 3.5 % (0-4); Hematocrit 25.2 % (42.0-52.0); Hemoglobin 8.7 g/dl (14.0-18.0); Imm Gran Abs Auto 0.02 X10*3/uL (0.00-0.03); Imm Gran Pct Auto 0.4 % (0.0-0.4); Lymphocytes Absolute Auto 1.4 X10*3/uL (1.2-4.9); Lymphocytes Percent Auto 29.4 % (20-40); Mean Corpuscular HGB Conc 34.5 g/dl (31.0-36.0); Mean Corpuscular Hemoglobin 27.8 pg (27.0-33.0); Mean Corpuscular Volume 80.5 fL (80.0-98.0); Mean Platelet Volume 9.5 fL (9.4-12.4); Monocytes Absolute Auto 0.5 X10*3/uL (0.1-1.2); Monocytes Percent Auto 9.3 % (2-11); Neutrophils Absolute Auto 2.8 x10*3/uL (2.0-8.3); Neutrophils Percent Auto 56.8 % (45-73); Platelet Count 129 X10*3/uL (160-400); Red Blood Count 3.13 X10*6/uL (4.60-5.80); Red Cell Distribution Width 15.7 % (11.0-16.0); White Blood Count 4.9 X10*3/uL (4.8-10.8)
[2024-08-22 07:28] LABS: Glucose, Whole Blood 116 mg/dL (60-115)
[2024-08-22] MEDS: 0.9 % Sodium Chloride Flush 3 ML SYRINGE IVFLUSH ×3 (10:36→20:46)
--- NOTE | 2024-08-22 10:40 | PC.NURSE ---
GI at bedside for consult. Per GI- plan for endoscopy today. Pt NPO since midnight. Per MD- hold morning medications d/t needing to take with water. Vitals updated in worklist. Pt ambulatory/independent to bathroom with steady gait. Call barreto within reach, all needs met at this time.
--- NOTE | 2024-08-22 11:19 | MHC.SHP ---
Pre-Procedural Eval Section A - 24 Hr Update-Section A only Date of Service: 08/22/24 The patient is an INPATIENT: Yes Changes since office visit: No Cold of Flu in the past 2 weeks, No New Medical Problems, No Changes in Medication and No Patient answered all questions The patient has been examined within 24 hours of the surgical procedure. The History & Physical has been completed within 30 days and I have reviewed it.: Yes Section B - Complete if H&P > 30 days Chief Complaint: GI bleed Allergies: Allergies Allergy/AdvReac Type Severity Reaction Status Date / Time Penicillins (PENICILLINS) Allergy Unknown UNKNOWN Verified 08/21/24 15:17 Plan I have reviewed the history and physical and performed a pertinent physical examination on my patient. No changes have occurred unless specified. Time Spent With Patient Time: Total time managing care of this patient today ____ minutes.
--- NOTE | 2024-08-22 11:23 | PM.EVENT ---
Event Note Date of Service: 08/22/24 Event Note: GI consult dictated EGD later todya for further evaluation of anemia and heme pos stools with ASA/Plavix use. Time Spent With Patient Time: Total time managing care of this patient today ____ minutes.
--- NOTE | 2024-08-22 11:53 | P.PNIM_ITS ---
Subjective Subjective Date of Service: 08/22/24 Interval History: seen and evaluated this morning feels better after transfusion no evidence of bleeding at this point pending EGD Review of Systems Review of Systems: Yes all other systems are reviewed and are negative Physical Exam 2 Vital Signs: Vital Signs: Last Vital Signs Temp 97.9 F 08/22/24 07:49 Pulse 62 08/22/24 10:05 Resp 15 08/22/24 10:05 BP 161/71 H 08/22/24 10:05 Pulse Ox 99 08/22/24 10:05 O2 Del Method Room Air 08/22/24 10:05 BMI result Body Mass Index 23.5 Const: Other: Constitutional : interactive, not in distress Cardiovascular : no JVP, no lower extremity edema, ICD Respiratory : bilateral chest movement, not in resp distress Gastrointestinal: soft, lax, Non tender Skin : Warm, Dry Neurological : Alert & oriented , No focal deficit Objective Data Active Medications Acetaminophen (Acetaminophen 325 Mg Tablet) 975 mg PO Q6H PRN PRN Reason: Pain, Mild 1-3,fever,headache Albuterol Sulfate (Albuterol Sulfate 90 Mcg 8 Gm Inhaler) 2 puff INHALE Q4H PRN PRN Reason: Wheezing Allopurinol (Allopurinol 100 Mg Tablet) 100 mg PO BID [facility] Last Admin: 08/22/24 10:33 Dose: Not Given Documented By: REANNA Non-Admin Reason: Physician Held Med Amiodarone HCl (Amiodarone Hcl 200 Mg Tablet) 200 mg PO DAILY [facility] Last Admin: 08/22/24 10:33 Dose: Not Given Documented By: REANNA Non-Admin Reason: Physician Held Med Calcium Carbonate (Calcium Carbonate 750 Mg Tab.Chew) 750 mg PO Q4H PRN PRN Reason: Heartburn Carvedilol (Carvedilol 6.25 Mg Tablet) 6.25 mg PO BID [facility]; Protocol Last Admin: 08/22/24 10:33 Dose: Not Given Documented By: REANNA Non-Admin Reason: Physician Held Med Dextrose (Dextrose 50 % 25 Gm/50 Ml Syringe) 25 gm IVPUSH Q15M PRN; Protocol PRN Reason: per Hypoglycemia Standing Ord. Empagliflozin (Empagliflozin 10 Mg Tablet) 10 mg PO DAILY [facility] Last Admin: 08/22/24 10:34 Dose: Not Given Documented By: REANNA Non-Admin Reason: Physician Held Med Glucose (Glucose Gel 15 Gm Gel..Gram.) 15 gm PO Q15M PRN; Protocol PRN Reason: per Hypoglycemia Standing Ord. Insulin Human Lispro (Insulin Lispro 100 Unit/Ml 3 Ml Vial) 0 unit SUBCUT QIDACHS [facility]; Protocol Last Admin: 08/22/24 07:30 Dose: Not Given Documented By: REANNA Non-Admin Reason: No Insulin Coverage Comments: poc 116 no insulin coverage Isosorbide Mononitrate (Isosorbide Mononitrate 60 Mg Tab.Er.24h) 60 mg PO DAILY [facility]; Protocol Last Admin: 08/22/24 10:34 Dose: Not Given Documented By: REANNA Non-Admin Reason: Physician Held Med Losartan Potassium (Losartan Potassium 25 Mg Tablet) 25 mg PO DAILY [facility]; Protocol Last Admin: 08/22/24 10:34 Dose: Not Given Documented By: REANNA Non-Admin Reason: Physician Held Med Magnesium Hydroxide (Milk Of Magnesia 30 Ml Oral.Susp) 30 ml PO DAILY PRN PRN Reason: Constipation Melatonin (Melatonin 3 Mg Tablet) 6 mg PO BEDTIME PRN PRN Reason: Insomnia Multivitamins/Vitamin C (Multivitamin Tablet) 1 tab PO DAILY [facility] Last Admin: 08/22/24 10:35 Dose: Not Given Documented By: REANNA Non-Admin Reason: Physician Held Med Non-Formulary Medication (Umeclidinium-Vilanterol [Anoro Ellipta]) 1 inhalation INHALE DAILY [facility] Ondansetron HCl (Ondansetron Hcl 4 Mg/2 Ml Vial) 4 mg IVPUSH Q8H PRN PRN Reason: Nausea and Vomiting Oxycodone HCl (Oxycodone Hcl Immed Release 5 Mg Tablet) 5 mg PO Q6H PRN PRN Reason: Pain, Moderate(Pain Scale 4-6) Pantoprazole Sodium (Pantoprazole Sodium 40 Mg/10 Ml Vial) 40 mg IVPUSH BID@0630,1630 [facility] Last Admin: 08/22/24 06:48 Dose: 40 mg Documented By: JOSE A Pravastatin Sodium (Pravastatin Sodium 20 Mg Tablet) 20 mg PO DAILY [facility] Last Admin: 08/22/24 10:35 Dose: Not Given Documented By: REANNA Non-Admin Reason: Physician Held Med Sodium Chloride (0.9 % Sodium Chloride Flush 3 Ml Syringe) 3 ml IVFLUSH QSHIFT [facility] Last Admin: 08/22/24 10:36 Dose: 3 ml Documented By: REANNA Tamsulosin HCl (Tamsulosin Hcl 0.4 Mg Capsule) 0.4 mg PO BEDTIME [facility] Last Admin: 08/21/24 23:16 Dose: 0.4 mg Documented By: JOSE A Labs 08/22/24 06:46 08/22/24 06:46 Labs: Laboratory Results - last 24 hr 08/21/24 08/21/24 08/21/24 15:42 16:21 17:24 MCV 79.5 L MCH 26.5 L MCHC 33.3 RDW 16.4 H Plt Count 168 D MPV 9.3 L Immature Gran % (Auto) 0.2 Neut % (Auto) 50.6 Lymph % (Auto) 36.3 [place] % (Auto) 9.2 Eos % (Auto) 2.9 Baso % (Auto) 0.8 Lymph # (Auto) 2.2 [place] # (Auto) 0.6 Eos # (Auto) 0.2 Baso # (Auto) 0.1 Abs Immat Gran (auto) 0.01 Absolute Neuts (auto) 3.0 Absolute Nucleated RBC 0.000 Nucleated RBC % (auto) 0.0 Anion Gap 13 Estim Creat Clear Calc 38.0 Estimated GFR 39 POC Glucose Random Glucose 190 H Calcium 9.0 Magnesium 1.9 Iron TIBC % Saturation Unsat Iron Binding Total Bilirubin 0.5 AST 63 H ALT 50 H Alkaline Phosphatase 50 Troponin I High Sens 11.7 B-Natriuretic Peptide 98 Total Protein 6.4 L Albumin 3.8 Stool Occult Blood POSITIVE Blood Type A Positive Antibody Screen NEGATIVE Crossmatch See Detail 08/21/24 08/21/24 08/21/24 19:30 21:10 22:06 MCV MCH MCHC RDW Plt Count MPV Immature Gran % (Auto) Neut % (Auto) Lymph % (Auto) [place] % (Auto) Eos % (Auto) Baso % (Auto) Lymph # (Auto) [place] # (Auto) Eos # (Auto) Baso # (Auto) Abs Immat Gran (auto) Absolute Neuts (auto) Absolute Nucleated RBC Nucleated RBC % (auto) Anion Gap 11 L Estim Creat Clear Calc 40.9 Estimated GFR 43 POC Glucose 139 H Random Glucose 110 Calcium 8.5 Magnesium Iron 19 L TIBC 311 % Saturation 6 L Unsat Iron Binding 292 Total Bilirubin AST ALT Alkaline Phosphatase Troponin I High Sens 12.0 B-Natriuretic Peptide Total Protein Albumin Stool Occult Blood Blood Type Antibody Screen Crossmatch 08/22/24 08/22/24 06:46 07:25 MCV 80.5 MCH 27.8 MCHC 34.5 RDW 15.7 Plt Count 129 L MPV 9.5 Immature Gran % (Auto) 0.4 Neut % (Auto) 56.8 Lymph % (Auto) 29.4 [place] % (Auto) 9.3 Eos % (Auto) 3.5 Baso % (Auto) 0.6 Lymph # (Auto) 1.4 [place] # (Auto) 0.5 Eos # (Auto) 0.2 Baso # (Auto) 0.0 Abs Immat Gran (auto) 0.02 Absolute Neuts (auto) 2.8 Absolute Nucleated RBC 0.000 Nucleated RBC % (auto) 0.0 Anion Gap 11 L Estim Creat Clear Calc 45.6 Estimated GFR 48 POC Glucose 116 H Random Glucose 113 Calcium 8.3 L Magnesium Iron TIBC % Saturation Unsat Iron Binding Total Bilirubin AST ALT Alkaline Phosphatase Troponin I High Sens B-Natriuretic Peptide Total Protein Albumin Stool Occult Blood Blood Type Antibody Screen Crossmatch Assessment and Plan (1) Alcohol use disorder: Status: Acute (2) History of GI bleed: Status: Acute (3) Hyperkalemia: Status: Acute (4) Symptomatic anemia: Status: Acute (5) Acute on chronic blood loss anemia: Status: Acute Plan Patient is an 83-year-old male with a past medical history significant for gout, history GI bleed, hypertension, moderate persistent asthma, CAD with [place]AR[place] 12/25, HFrEF, type 2 diabetes, PAD, HLD and CKD 3, who presented to the ED due to shortness of breath and lightheadedness for the past month. Symptomatic anemia, history GI bleed Hb improved after 2 units PRBCs to 8.7 fecal occult blood test positive, likely related to ASA and Plavix usage abdominopelvic CT negative for acute findings Continue IV pantoprazole 40 mg b.i.d. NPO GI consult, Plan for EGD today monitor CBC and BMP Hyperkalemia, likely secondary to GI bleed resolved post Lokelma 10 g in ED recheck BMP Alcohol use disorder patient reports 2 alcoholic beverages daily monitor CIWA, no history of alcohol withdrawal CKD 3 creatinine at baseline HTN continue home meds Type 2 diabetes not currently on medication sliding scale insulin Moderate persistent asthma, no acute exacerbation continue home meds CAD hold plavix and ASA , check the need of both at time of discharge ? maybe ASA alone ? continue statin and imdur Gout continue allopurinol HFrEF, no acute exacerbation continue farxiga and carvedilol per cardiology notes, echo 07/25 with EF of 25-30% DNR/DNI VTE prophylaxis: Pneumoboots Patient with acute symptomatic anemia complicated by hyperkalemia, requiring admission overnight stay for blood transfusion, cardiac monitoring and gastroenterology intervention Quality Stroke Does the patient have a stroke diagnosis?: No VTE Prior VTE?: No VTE Risk Level:: Medical - moderate - high VTE Device Contraindication: N/A - Device Ordered VTE Drug Contraindication: Treatment Not Indicated
--- NOTE | 2024-08-22 13:00 | MHC.EDTECH ---
pt off the unit heading to short stay
[2024-08-22 13:37] LABS: Glucose, Whole Blood 122 mg/dL (60-115)
--- NOTE | 2024-08-22 13:41 | HO.ANESPROP2 ---
HPI - Anesthesia Eval Anesthesia Pre-Procedure Meds If yes to any meds - educate patient: Pt education - increased risk of aspiration and/or euvolemic DKA [facility] Active Problems Active Problems: All Active Problems (Updated 08/22/24 @ 13:34 by Lexus Barber RN) Acute on chronic blood loss anemia (Acute) Alcohol use disorder (Acute) Hyperkalemia (Acute) Symptomatic anemia (Acute) CKD (chronic kidney disease) stage 3, GFR 30-59 ml/min (Acute) HLD (hyperlipidemia) (Acute) PAD (peripheral artery disease) (Acute) Moderate persistent asthma (Acute) Gout (Acute) History of GI bleed (Acute) Past Medical History Medical History Family history of AICD (automatic internal cardiac defibrillator) Anemia Pacemaker CKD (chronic kidney disease) stage 3, GFR 30-59 ml/min HLD (hyperlipidemia) PAD (peripheral artery disease) Moderate persistent asthma Gout History of GI bleed Cardiomyopathy CKD (chronic kidney disease) Asthma Diabetes CAD (coronary artery disease) Cognitive capacity: normal Functional capacity: independent ambulation Family History Family history of problems with anesthesia: No Surgical History Surgical History Hx of esophagogastroduodenoscopy History of ankle surgery Hx of colonoscopy Stented coronary artery History of Problems with Anesthesia: No Social History Social History Alcohol intake: current Alcohol intake frequency: a few times a week Patient Tobacco Use Status: Former Tobacco user Smoked in Last 30 Days: No Use of substances other than those prescribed or required for medical reasons: No Have you been hit, kicked, punched, or otherwise hurt by someone within the past year? If so, by whom?: No Are you DNR?: No Advance Directives: No Advance Directives Information Provided: Yes Do you have a plan to hurt others: No Plan Nutrition Risks: No Nutritional Risk service: Yes Meds Allergies Allergy/AdvReac Type Severity Reaction Status Date / Time Penicillins (PENICILLINS) Allergy Unknown UNKNOWN Verified 08/21/24 15:17 Active Medications: Current Medications Acetaminophen (Acetaminophen 325 Mg Tablet) 975 mg PO Q6H PRN PRN Reason: Pain, Mild 1-3,fever,headache Albuterol Sulfate (Albuterol Sulfate 90 Mcg 8 Gm Inhaler) 2 puff INHALE Q4H PRN PRN Reason: Wheezing Allopurinol (Allopurinol 100 Mg Tablet) 100 mg PO BID [facility] Last Admin: 08/22/24 10:33 Dose: Not Given Amiodarone HCl (Amiodarone Hcl 200 Mg Tablet) 200 mg PO DAILY [facility] Last Admin: 08/22/24 10:33 Dose: Not Given Calcium Carbonate (Calcium Carbonate 750 Mg Tab.Chew) 750 mg PO Q4H PRN PRN Reason: Heartburn Carvedilol (Carvedilol 6.25 Mg Tablet) 6.25 mg PO BID [facility]; Protocol Last Admin: 08/22/24 10:33 Dose: Not Given Dextrose (Dextrose 50 % 25 Gm/50 Ml Syringe) 25 gm IVPUSH Q15M PRN; Protocol PRN Reason: per Hypoglycemia Standing Ord. Empagliflozin (Empagliflozin 10 Mg Tablet) 10 mg PO DAILY [facility] Last Admin: 08/22/24 10:34 Dose: Not Given Glucose (Glucose Gel 15 Gm Gel..Gram.) 15 gm PO Q15M PRN; Protocol PRN Reason: per Hypoglycemia Standing Ord. Insulin Human Lispro (Insulin Lispro 100 Unit/Ml 3 Ml Vial) 0 unit SUBCUT QIDACHS [facility]; Protocol Last Admin: 08/22/24 07:30 Dose: Not Given Isosorbide Mononitrate (Isosorbide Mononitrate 60 Mg Tab.Er.24h) 60 mg PO DAILY [facility]; Protocol Last Admin: 08/22/24 10:34 Dose: Not Given Losartan Potassium (Losartan Potassium 25 Mg Tablet) 25 mg PO DAILY [facility]; Protocol Last Admin: 08/22/24 10:34 Dose: Not Given Magnesium Hydroxide (Milk Of Magnesia 30 Ml Oral.Susp) 30 ml PO DAILY PRN PRN Reason: Constipation Melatonin (Melatonin 3 Mg Tablet) 6 mg PO BEDTIME PRN PRN Reason: Insomnia Multivitamins/Vitamin C (Multivitamin Tablet) 1 tab PO DAILY [facility] Last Admin: 08/22/24 10:35 Dose: Not Given Non-Formulary Medication (Umeclidinium-Vilanterol [Anoro Ellipta]) 1 inhalation INHALE DAILY [facility] Ondansetron HCl (Ondansetron Hcl 4 Mg/2 Ml Vial) 4 mg IVPUSH Q8H PRN PRN Reason: Nausea and Vomiting Oxycodone HCl (Oxycodone Hcl Immed Release 5 Mg Tablet) 5 mg PO Q6H PRN PRN Reason: Pain, Moderate(Pain Scale 4-6) Pantoprazole Sodium (Pantoprazole Sodium 40 Mg/10 Ml Vial) 40 mg IVPUSH BID@0630,1630 [facility] Last Admin: 08/22/24 06:48 Dose: 40 mg Pravastatin Sodium (Pravastatin Sodium 20 Mg Tablet) 20 mg PO DAILY [facility] Last Admin: 08/22/24 10:35 Dose: Not Given Sodium Chloride (0.9 % Sodium Chloride Flush 3 Ml Syringe) 3 ml IVFLUSH QSHIFT [facility] Last Admin: 08/22/24 10:36 Dose: 3 ml Tamsulosin HCl (Tamsulosin Hcl 0.4 Mg Capsule) 0.4 mg PO BEDTIME [facility] Last Admin: 08/21/24 23:16 Dose: 0.4 mg Home Medications ?Medication ?Instructions ?Recorded ?Confirmed ?Last Taken ?Type albuterol sulfate 90 mcg/actuation 2 puff inhalation Q4H PRN wheezing 01/20/23 08/21/24 Unknown History aerosol inhaler allopurinol 100 mg tablet 100 mg PO BID 01/20/23 08/21/24 08/21/24 History aspirin 81 mg tablet,delayed 81 mg PO DAILY 01/20/23 08/21/24 08/21/24 History release pravastatin 20 mg tablet 20 mg PO DAILY 01/20/23 08/21/24 08/21/24 History amiodarone 200 mg tablet 200 mg PO DAILY 08/21/24 08/21/24 08/21/24 History carvedilol 3.125 mg tablet 6.25 mg PO BID 08/21/24 08/21/24 08/21/24 History dapagliflozin propanediol 10 mg 10 mg PO DAILY 08/21/24 08/21/24 08/21/24 History tablet (Farxiga) ferrous fumarate 324 mg (106 mg 324 mg PO DAILY 08/21/24 08/21/24 08/21/24 History iron) tablet isosorbide mononitrate 60 mg 60 mg PO DAILY 08/21/24 08/21/24 08/21/24 History tablet,extended release 24 hr losartan 25 mg tablet 25 mg PO DAILY 08/21/24 08/21/24 08/21/24 History multivitamin 1 tab PO DAILY 08/21/24 08/21/24 08/21/24 History tamsulosin 0.4 mg capsule 0.4 mg PO BEDTIME 08/21/24 08/21/24 Unknown History umeclidinium 62.5 mcg-vilanterol 1 inh inhalation DAILY 08/21/24 08/21/24 Unknown History 25 mcg/actuation powdr for inhalation (Anoro Ellipta) Exam Exam Date and Time: 08/22/2024 Height,Weight and Vital Signs: Height 6 ft 1 in Weight 80.739 kg Last Vital Signs Temp 98.5 F 08/22/24 13:10 Pulse 78 08/22/24 13:10 Resp 18 08/22/24 13:10 BP 190/75 H 08/22/24 13:10 Pulse Ox 98 08/22/24 13:10 O2 Del Method Room Air 08/22/24 13:10 Pertinent Lab Results Pertinent Lab Results: Laboratory Tests 08/21/24 08/21/24 08/21/24 15:42 16:21 17:24 WBC 6.0 RBC 2.64 L D Hgb 7.0 L* D Hct 21.0 L* D MCV 79.5 L MCH 26.5 L MCHC 33.3 RDW 16.4 H Plt Count 168 D MPV 9.3 L Immature Gran % (Auto) 0.2 Neut % (Auto) 50.6 Lymph % (Auto) 36.3 [place] % (Auto) 9.2 Eos % (Auto) 2.9 Baso % (Auto) 0.8 Lymph # (Auto) 2.2 [place] # (Auto) 0.6 Eos # (Auto) 0.2 Baso # (Auto) 0.1 Abs Immat Gran (auto) 0.01 Absolute Neuts (auto) 3.0 Absolute Nucleated RBC 0.000 Nucleated RBC % (auto) 0.0 Sodium 142 Potassium 5.6 H Chloride 113 H Carbon Dioxide 22 Anion Gap 13 BUN 14 Creatinine 1.69 H Estim Creat Clear Calc 38.0 Estimated GFR 39 POC Glucose Random Glucose 190 H Calcium 9.0 Magnesium 1.9 Iron TIBC % Saturation Unsat Iron Binding Total Bilirubin 0.5 AST 63 H ALT 50 H Alkaline Phosphatase 50 Troponin I High Sens 11.7 B-Natriuretic Peptide 98 Total Protein 6.4 L Albumin 3.8 Stool Occult Blood POSITIVE Blood Type A Positive Antibody Screen NEGATIVE Crossmatch See Detail 08/21/24 08/21/24 08/21/24 19:30 21:10 22:06 WBC RBC Hgb Hct MCV MCH MCHC RDW Plt Count MPV Immature Gran % (Auto) Neut % (Auto) Lymph % (Auto) [place] % (Auto) Eos % (Auto) Baso % (Auto) Lymph # (Auto) [place] # (Auto) Eos # (Auto) Baso # (Auto) Abs Immat Gran (auto) Absolute Neuts (auto) Absolute Nucleated RBC Nucleated RBC % (auto) Sodium 141 Potassium 4.3 D Chloride 112 H Carbon Dioxide 22 Anion Gap 11 L BUN 13 Creatinine 1.57 H Estim Creat Clear Calc 40.9 Estimated GFR 43 POC Glucose 139 H Random Glucose 110 Calcium 8.5 Magnesium Iron 19 L TIBC 311 % Saturation 6 L Unsat Iron Binding 292 Total Bilirubin AST ALT Alkaline Phosphatase Troponin I High Sens 12.0 B-Natriuretic Peptide Total Protein Albumin Stool Occult Blood Blood Type Antibody Screen Crossmatch 08/22/24 08/22/24 08/22/24 06:46 07:25 13:24 WBC 4.9 RBC 3.13 L Hgb 8.7 L D Hct 25.2 L MCV 80.5 MCH 27.8 MCHC 34.5 RDW 15.7 Plt Count 129 L MPV 9.5 Immature Gran % (Auto) 0.4 Neut % (Auto) 56.8 Lymph % (Auto) 29.4 [place] % (Auto) 9.3 Eos % (Auto) 3.5 Baso % (Auto) 0.6 Lymph # (Auto) 1.4 [place] # (Auto) 0.5 Eos # (Auto) 0.2 Baso # (Auto) 0.0 Abs Immat Gran (auto) 0.02 Absolute Neuts (auto) 2.8 Absolute Nucleated RBC 0.000 Nucleated RBC % (auto) 0.0 Sodium 140 Potassium 3.7 Chloride 111 H Carbon Dioxide 22 Anion Gap 11 L BUN 11 Creatinine 1.41 H Estim Creat Clear Calc 45.6 Estimated GFR 48 POC Glucose 116 H 122 H Random Glucose 113 Calcium 8.3 L Magnesium Iron TIBC % Saturation Unsat Iron Binding Total Bilirubin AST ALT Alkaline Phosphatase Troponin I High Sens B-Natriuretic Peptide Total Protein Albumin Stool Occult Blood Blood Type Antibody Screen Crossmatch Airway Mallampati Class: II TM Dist: >3cm Neck ROM: Full Denture: Upper and Lower (full upper and lowe dentures) Loose/Missing/Broken Teeth: No Heart: NSR Lungs: CTA Other: normal cognition and oriented times 3 Assessment and Plan Assessment Anesthesia Assessment: Anesthesia Plan Discussed and Chart Reviewed Final Anesthetic Review Family History of Problems with Anesthesia: No History of Problems with Anesthesia: No NPO: Yes ASA Class: III Final Preanesthetic Review: No Changes in Pt Med Stat, Meds/Allgs Chart Reviewed, Consent Obtained/Reviewed, Anes Risks/Benef Reviewed and DNR Form (If Appl.) (suspended for 2 hours 2P to 4P) Patient Risk: Low Procedure Risk: Low Anesthetic Plan Anesthetic Plan: MAC: and Agree w/ Assess. and Plan Disposition: Standard PACU
--- NOTE | 2024-08-22 15:05 | PM.OP ---
Brief Operative Note Date of Service: 08/22/24 Pre-op diagnosis: Anemia. Heme + stool Post-op diagnosis: other (Hiatal hernia) Procedure: EGD Surgeon: Moris Levin MD Anesthesia: MAC Was an Home Based Assistant used for this Procedure?: No Estimated blood loss (mL): 0 Pathology: none sent Condition: stable Disposition: PACU
--- NOTE | 2024-08-22 15:06 | PM.EVENT ---
Event Note Date of Service: 08/22/24 Event Note: GI-EGD-Full note dictated-D/W patient and his . Findings: Normal exam except for a small hiatal hernia. No signs of bleeding nor old blood in the UGI tract. Rec: Observe. Maintain Hgb > 9.0. Continue PPI and oral Iron. Advance diet. Will hold off on another colonoscopy given the negative exam in 01/2023, as well as negative colonoscopies in the past as well. Will consider an outpatient small bowel capsule study. He and his think he was taking his oral Iron regularly. His Hgb was normal in 2023. I advised him and his to make sure he takes the Iron daily, along with his PPI. I will see him as an outpatient as well. Thanks. Time Spent With Patient Time: Total time managing care of this patient today ____ minutes.
[2024-08-22 16:43] LABS: Glucose, Whole Blood 120 mg/dL (60-115)
[2024-08-22] MEDS: Isosorbide Mononitrate 60 MG TAB.ER.24H PO (17:18)
[2024-08-22] MEDS: Omeprazole 40 MG CAPSULE.DR PO (17:18)
[2024-08-22] MEDS: Ferrous Sulfate 324 MG TABLET.DR PO (17:18)
[2024-08-22] MEDS: carvediloL 6.25 MG TABLET PO (20:35)
[2024-08-22] MEDS: Tamsulosin HCL 0.4 MG CAPSULE PO (20:35)
[2024-08-22] MEDS: Insulin Lispro 100 UNIT/ML 3 ML VIAL SUBCUT (20:36)
[2024-08-22 20:43] LABS: Glucose, Whole Blood 166 mg/dL (60-115)
[2024-08-22] MEDS: allopurinoL 100 MG TABLET PO (20:50)
--- NOTE | 2024-08-22 21:48 | CONS_ITS ---
DATE OF SERVICE: 08/22/2024 REFERRING PHYSICIAN: MEAGAN Mendez REASON FOR CONSULTATION: Anemia and Hemoccult-positive stools. HISTORY OF PRESENT ILLNESS: The patient is a pleasant 83-year-old man who presented to the emergency room at the request of his primary care provider because of significant anemia. He was found to have a hematocrit of 21 with anemia and Hemoccult-positive stools. Imaging study showed no active bleeding and rectal examination disclosed brown stool that was Hemoccult positive. He was given transfusion of packed red blood cells with improvement to his hematocrit of 25.2 this morning. He denies any mino hematemesis, melena, or hematochezia. He did have a similar admission with anemia in January 2023 and underwent upper endoscopy and colonoscopy, which showed minimal gastritis, diverticulosis, small hiatal hernia, and internal hemorrhoids. He was seen in followup in the office and doing well, so no further evaluation with capsule endoscopy was undertaken. He has a history of coronary artery disease with stent placement and is on chronic aspirin and Plavix usage. He denies use of NSAIDs. He does drink 2 alcoholic drinks per day. PAST MEDICAL HISTORY: 1. Coronary artery disease with history of stent placement. 2. Cardiomyopathy. 3. Asthma. 4. Peripheral arterial disease. 5. Hyperlipidemia. 6. Chronic kidney disease. 7. Diabetes. CURRENT MEDICATIONS: Current medication list is reviewed in the chart. ALLERGIES: PENICILLIN. FAMILY HISTORY: This was reviewed with the patient and was negative for GI malignancy. SOCIAL HISTORY: Alcohol use is as above. He does not smoke currently. REVIEW OF SYSTEMS: SKIN: No pruritus. HEENT: Negative. CARDIOPULMONARY: No shortness of breath or chest pain. GASTROINTESTINAL: As above. GENITOURINARY: Negative. NEUROPSYCHIATRIC: Negative. PHYSICAL EXAMINATION: GENERAL: Shows a pleasant male, lying comfortably in bed. VITAL SIGNS: Reviewed in the electronic medical record and are stable. SKIN: Anicteric. HEENT: Shows no scleral icterus. NECK: Without lymphadenopathy or thyromegaly. LUNGS: Clear. HEART: Shows regular rate and rhythm. S1, S2. No murmur. ABDOMEN: Soft without focal masses or tenderness. Bowel sounds are present. No organomegaly is noted. EXTREMITIES: Without edema. LABORATORY DATA AND IMAGING STUDIES: Reviewed. IMPRESSION AND PLAN: Anemia with Hemoccult-positive stools. I have recommended further evaluation with upper endoscopy because of his history of chronic aspirin usage. He had been on omeprazole at the time of his last endoscopy, but stopped this at some point. If this exam is negative, he may need further evaluation with capsule endoscopy. I agree with monitoring his hematocrit and continuing a proton pump inhibitor. Thanks for asking me to see him. I will follow him in the hospital as needed. MD KRISTIN Lee/CRESENCIO / [id number]
--- NOTE | 2024-08-23 01:20 | OP_ITS ---
DATE OF SERVICE: 08/22/2024 SURGEON: Moris Levin MD INDICATIONS: The patient presents for evaluation of iron-deficiency anemia and heme-positive stool. Full consent has been obtained from him for this, including risks of bleeding and perforation. PREOPERATIVE DIAGNOSIS: POSTOPERATIVE DIAGNOSIS: PROCEDURE PERFORMED: Esophagogastroduodenoscopy. ESTIMATED BLOOD LOSS: COMPLICATIONS: ANESTHESIA: Medication used, monitored anesthesia care. ASSISTANTS: SPECIMENS: PREOPERATIVE DIAGNOSES: Iron deficiency anemia and heme-positive stool. POSTOPERATIVE DIAGNOSES: Iron deficiency anemia and heme-positive stool, small hiatal hernia. DESCRIPTION OF PROCEDURE: The patient was placed in the left lateral decubitus position. The Olympus videogastroscope was passed into the posterior oropharynx and upper esophagus under direct vision. The scope was passed slowly to the distal esophagus. The gastroesophageal junction appeared at 38 cm. There was no sign of any esophagitis or Mercer esophagus. There did appear to be a nonobstructing distal esophageal ring, which did not cause any obstruction of the scope. There was a small hiatal hernia. The scope was advanced to pylorus and duodenum was cannulated further to the point that the scope would allow. I did not visualize any sign of angiodysplasias, nor any bleeding. Duodenal biopsies had been obtained in 2022, which were negative for celiac disease. The duodenal bulb appeared normal. The scope was withdrawn back to the stomach. The gastric antrum and body appeared normal with good peristalsis. The scope was retroflexed visualizing the proximal stomach carefully, which appeared normal, without any sign of mass or ulceration. The scope was straightened. There was no blood, nor coffee-ground material in the stomach. The scope was withdrawn back to the esophagus. The esophageal mucosa appeared normal. The scope was withdrawn from the patient. He tolerated the procedure well and was returned to recovery area in stable condition. IMPRESSION: 1. Small hiatal hernia. 2. Nonobstructing distal esophageal ring. Of note, this was not dilated as he is asymptomatic plus he has been on his Plavix and aspirin up until yesterday. PLAN: The patient will be observed and have his diet advanced. Given the clinical history, I do not think a repeat colonoscopy is required since he had a negative exam back in 2022. He has also had previous colonoscopies elsewhere. Given the clinical scenario, I do suspect he is having some intermittent chronic GI blood loss from a small bowel angiodysplasia. He did have a hemoglobin of 13.7 in December 2023. So I suspect, he is chronically oozing from something such as a small bowel AVM. I can plan to see him as an outpatient and arrange for a small bowel capsule study. In the meantime, he will continue his PPI and supplemental iron. I did speak with his and apparently he has been using iron as far she can recall. If his anemia remained stable as he continues the iron and PPI, then most likely he would not need any particular intervention if his small-bowel capsule study is negative. If the small bowel capsule study happen to show a bleeding lesion, then we could decide at that point if he needs any therapeutic intervention in that regard. MD ELAINE Valencia/CRESENCIO / [phone]
[2024-08-23 03:54] VITALS: BP 128/55; PULSE 65; RESP 20; TEMP 37.1; O2SAT 99
[2024-08-23] MEDS: Pantoprazole Sodium 20 MG TABLET.DR 40 MG PO (05:25)
[2024-08-23 07:03] VITALS: BP 128/59; PULSE 64; RESP 16; TEMP 36.9; O2SAT 96
[2024-08-23 07:21] LABS: MANUAL DIFF FLAG NO
[2024-08-23 07:23] LABS: Basophils Percent Auto 0.6 % (0-2); Eosinophils Absolute Auto 0.2 X10*3/uL (0.0-0.4); Eosinophils Percent Auto 4.1 % (0-4); Hematocrit 24.1 % (42.0-52.0); Hemoglobin 8.4 g/dl (14.0-18.0); Imm Gran Abs Auto 0.01 X10*3/uL (0.00-0.03); Imm Gran Pct Auto 0.2 % (0.0-0.4); Lymphocytes Absolute Auto 1.6 X10*3/uL (1.2-4.9); Lymphocytes Percent Auto 33.1 % (20-40); Mean Corpuscular HGB Conc 34.9 g/dl (31.0-36.0); Mean Corpuscular Hemoglobin 27.4 pg (27.0-33.0); Mean Corpuscular Volume 78.5 fL (80.0-98.0); Mean Platelet Volume 10.2 fL (9.4-12.4); Monocytes Absolute Auto 0.5 X10*3/uL (0.1-1.2); Neutrophils Absolute Auto 2.6 x10*3/uL (2.0-8.3); Platelet Count 136 X10*3/uL (160-400); Red Blood Count 3.07 X10*6/uL (4.60-5.80); Red Cell Distribution Width 15.8 % (11.0-16.0); White Blood Count 4.9 X10*3/uL (4.8-10.8)
[2024-08-23 07:39] LABS: Anion Gap 10 (12-20); Blood Urea Nitrogen 11 mg/dL (9-16); Calcium 8.3 mg/dL (8.4-10.2); Carbon Dioxide 23 mmol/L (22-29); Chloride 110 mmol/L (96-108); Creatinine Clr Calc Pharmacy 47.6; Estimated Glomerular Filt Rate 51; Glucose Fasting 133 mg/dL (60-99); Glucose Random 133 mg/dL (60-115); Potassium 3.8 mmol/L (3.3-5.1); Sodium 139 mmol/L (135-145)
[2024-08-23 07:41] LABS: Glucose, Whole Blood 137 mg/dL (60-115)
--- NOTE | 2024-08-23 08:11 | HO.PM.IMPN ---
Subjective Subjective Date of Service: 08/23/24 Interval History: Seen in follow up for symptomatic anemia with hx gi bleed Interval history: s/p egd 08/22 no evidence of active bleeding. DAPT resumed. Physical Exam Vital Signs: Vital Signs: Last Vital Signs Temp 98.4 F 08/23/24 07:03 Pulse 64 08/23/24 07:03 Resp 16 08/23/24 07:03 BP 128/59 L 08/23/24 07:03 Pulse Ox 96 08/23/24 07:03 O2 Del Method Room Air 08/23/24 07:03 O2 Flow Rate 6 08/22/24 15:00 BMI result Body Mass Index 23.5 Objective Data Active Medications Acetaminophen (Acetaminophen 325 Mg Tablet) 975 mg PO Q6H PRN PRN Reason: Pain, Mild 1-3,fever,headache Albuterol Sulfate (Albuterol Sulfate 90 Mcg 8 Gm Inhaler) 2 puff INHALE Q4H PRN PRN Reason: Wheezing Allopurinol (Allopurinol 100 Mg Tablet) 100 mg PO BID [facility] Last Admin: 08/22/24 20:50 Dose: 100 mg Documented By: LISA Amiodarone HCl (Amiodarone Hcl 200 Mg Tablet) 200 mg PO DAILY [facility] Last Admin: 08/22/24 10:33 Dose: Not Given Documented By: REANNA Non-Admin Reason: Physician Held Med Aspirin (Aspirin Enteric Coated 81 Mg Tablet.) 81 mg PO DAILY [facility] Calcium Carbonate (Calcium Carbonate 750 Mg Tab.Chew) 750 mg PO Q4H PRN PRN Reason: Heartburn Carvedilol (Carvedilol 6.25 Mg Tablet) 6.25 mg PO BID [facility]; Protocol Last Admin: 08/22/24 20:35 Dose: 6.25 mg Documented By: LISA Clopidogrel Bisulfate (Clopidogrel Bisulfate 75 Mg Tablet) 75 mg PO DAILY [facility] Dextrose (Dextrose 50 % 25 Gm/50 Ml Syringe) 25 gm IVPUSH Q15M PRN; Protocol PRN Reason: per Hypoglycemia Standing Ord. Empagliflozin (Empagliflozin 10 Mg Tablet) 10 mg PO DAILY [facility] Last Admin: 08/22/24 10:34 Dose: Not Given Documented By: REANNA Non-Admin Reason: Physician Held Med Ferrous Sulfate (Ferrous Sulfate 324 Mg Tablet.) 324 mg PO BIDWM [facility] Last Admin: 08/22/24 17:18 Dose: 324 mg Documented By: SOTERO Glucose (Glucose Gel 15 Gm Gel..Gram.) 15 gm PO Q15M PRN; Protocol PRN Reason: per Hypoglycemia Standing Ord. Insulin Human Lispro (Insulin Lispro 100 Unit/Ml 3 Ml Vial) 0 unit SUBCUT QIDACHS [facility]; Protocol Last Admin: 08/23/24 07:47 Dose: Not Given Documented By: KIMBERLY Non-Admin Reason: No Insulin Coverage Isosorbide Mononitrate (Isosorbide Mononitrate 60 Mg Tab.Er.24h) 60 mg PO DAILY [facility]; Protocol Last Admin: 08/22/24 17:18 Dose: 60 mg Documented By: SOTERO Losartan Potassium (Losartan Potassium 25 Mg Tablet) 25 mg PO DAILY [facility]; Protocol Last Admin: 08/22/24 10:34 Dose: Not Given Documented By: REANNA Non-Admin Reason: Physician Held Med Magnesium Hydroxide (Milk Of Magnesia 30 Ml Oral.Susp) 30 ml PO DAILY PRN PRN Reason: Constipation Melatonin (Melatonin 3 Mg Tablet) 6 mg PO BEDTIME PRN PRN Reason: Insomnia Multivitamins/Vitamin C (Multivitamin Tablet) 1 tab PO DAILY [facility] Last Admin: 08/22/24 10:35 Dose: Not Given Documented By: REANNA Non-Admin Reason: Physician Held Med Naloxone HCl (Naloxone Hcl 0.4 Mg/Ml Vial) 0.04 mg IVPUSH Q5M PRN PRN Reason: Excessive sedation or RR < 8 Non-Formulary Medication (Umeclidinium-Vilanterol [Anoro Ellipta]) 1 inhalation INHALE DAILY [facility] Ondansetron HCl (Ondansetron Hcl 4 Mg/2 Ml Vial) 4 mg IVPUSH Q8H PRN PRN Reason: Nausea and Vomiting Oxycodone HCl (Oxycodone Hcl Immed Release 5 Mg Tablet) 5 mg PO Q6H PRN PRN Reason: Pain, Moderate(Pain Scale 4-6) Pantoprazole Sodium (Pantoprazole Sodium 20 Mg Tablet.) 40 mg PO BID@0630,1630 [facility] Last Admin: 08/23/24 05:25 Dose: 40 mg Documented By: LISA Pravastatin Sodium (Pravastatin Sodium 20 Mg Tablet) 20 mg PO DAILY [facility] Last Admin: 08/22/24 10:35 Dose: Not Given Documented By: REANNA Non-Admin Reason: Physician Held Med Sodium Chloride (0.9 % Sodium Chloride Flush 3 Ml Syringe) 3 ml IVFLUSH QSHIFT [facility] Last Admin: 08/22/24 20:46 Dose: 3 ml Documented By: LISA Tamsulosin HCl (Tamsulosin Hcl 0.4 Mg Capsule) 0.4 mg PO BEDTIME [facility] Last Admin: 08/22/24 20:35 Dose: 0.4 mg Documented By: LISA Labs 08/23/24 06:29 08/23/24 06:29 Labs: Laboratory Results - last 24 hr 08/21/24 08/22/24 08/22/24 15:42 13:24 16:36 MCV MCH MCHC RDW Plt Count MPV Immature Gran % (Auto) Neut % (Auto) Lymph % (Auto) [place] % (Auto) Eos % (Auto) Baso % (Auto) Lymph # (Auto) [place] # (Auto) Eos # (Auto) Baso # (Auto) Abs Immat Gran (auto) Absolute Neuts (auto) Absolute Nucleated RBC Nucleated RBC % (auto) Smear Path Review SEE NOTE Anion Gap Estim Creat Clear Calc Estimated GFR POC Glucose 122 H 120 H Random Glucose Fasting Glucose Calcium 08/22/24 08/23/24 08/23/24 20:30 06:29 07:02 MCV 78.5 L MCH 27.4 MCHC 34.9 RDW 15.8 Plt Count 136 L MPV 10.2 Immature Gran % (Auto) 0.2 Neut % (Auto) 52.0 Lymph % (Auto) 33.1 [place] % (Auto) 10.0 Eos % (Auto) 4.1 H Baso % (Auto) 0.6 Lymph # (Auto) 1.6 [place] # (Auto) 0.5 Eos # (Auto) 0.2 Baso # (Auto) 0.0 Abs Immat Gran (auto) 0.01 Absolute Neuts (auto) 2.6 Absolute Nucleated RBC 0.000 Nucleated RBC % (auto) 0.0 Smear Path Review Anion Gap 10 L Estim Creat Clear Calc 47.6 Estimated GFR 51 POC Glucose 166 H 137 H Random Glucose 133 H Fasting Glucose 133 H Calcium 8.3 L Assessment and Plan (1) Alcohol use disorder: Status: Acute (2) History of GI bleed: Status: Acute (3) Hyperkalemia: Status: Acute (4) Symptomatic anemia: Status: Acute (5) Acute on chronic blood loss anemia: Status: Acute Plan Patient is an 83-year-old male with a past medical history significant for gout, history GI bleed, hypertension, moderate persistent asthma, CAD with KAROLINA 12/25, HFrEF, type 2 diabetes, PAD, HLD and CKD 3, who presented to the ED due to shortness of breath and lightheadedness for the past month. Symptomatic anemia, history GI bleed Hb improved after 2 units PRBCs to 8.7 fecal occult blood test positive, likely related to ASA and Plavix usage abdominopelvic CT negative for acute findings Continue IV pantoprazole 40 mg b.i.d. NPO GI consult, Plan for EGD today monitor CBC and BMP Hyperkalemia, likely secondary to GI bleed resolved post Lokelma 10 g in ED recheck BMP Alcohol use disorder patient reports 2 alcoholic beverages daily monitor CIWA, no history of alcohol withdrawal CKD 3 creatinine at baseline HTN continue home meds Type 2 diabetes not currently on medication sliding scale insulin Moderate persistent asthma, no acute exacerbation continue home meds CAD hold plavix and ASA , check the need of both at time of discharge ? maybe ASA alone ? continue statin and imdur Gout continue allopurinol HFrEF, no acute exacerbation continue farxiga and carvedilol per cardiology notes, echo 07/25 with EF of 25-30% DNR/DNI VTE prophylaxis: Pneumoboots Patient with acute symptomatic anemia complicated by hyperkalemia, requiring admission overnight stay for blood transfusion, cardiac monitoring and gastroenterology intervention Quality Stroke Does the patient have a stroke diagnosis?: No VTE Prior VTE?: No VTE Risk Level:: Medical - moderate - high VTE Device Contraindication: N/A - Device Ordered VTE Drug Contraindication: Treatment Not Indicated
[2024-08-23] MEDS: Pravastatin Sodium 20 MG TABLET PO (09:09)
[2024-08-23] MEDS: Clopidogrel Bisulfate 75 MG TABLET PO (09:10)
[2024-08-23] MEDS: Losartan Potassium 25 MG TABLET PO (09:10)
[2024-08-23] MEDS: Isosorbide Mononitrate 60 MG TAB.ER.24H PO (09:10)
[2024-08-23] MEDS: allopurinoL 100 MG TABLET PO (09:10)
[2024-08-23] MEDS: Multivitamin TABLET 1 TAB PO (09:10)
[2024-08-23] MEDS: carvediloL 6.25 MG TABLET PO (09:11)
[2024-08-23] MEDS: Ferrous Sulfate 324 MG TABLET.DR PO (09:11)
[2024-08-23] MEDS: Amiodarone HCL 200 MG TABLET PO (09:11)
[2024-08-23] MEDS: Aspirin Enteric Coated 81 MG TABLET.DR PO (09:12)
[2024-08-23] MEDS: Empagliflozin 10 MG TABLET PO (09:12)
--- NOTE | 2024-08-23 10:27 | MHC.CM.PN ---
IMM 08/23/24, Pt lives with his , dtr and grandson, he does not have home health services. PCP confirmed: Grace Moyer. HCP is his , copy requested. to transport home at DC. DCP: home, self care. CM to follow for DC needs.
[2024-08-23 11:23] VITALS: BP 145/65; PULSE 65; RESP 18; TEMP 36.7; O2SAT 96
[2024-08-23 11:29] LABS: Glucose, Whole Blood 159 mg/dL (60-115)
--- NOTE | 2024-08-23 12:08 | P.DS_ITS ---
DS: Providers Provider Date of Service: 08/23/24 Date of admission: 08/21/24 20:04 Date of discharge: 08/23/24 Primary care physician: Grace Moyer MD Admitting clinician: Liliane Luther Attending physician on admission: Shan Dubois Consults: 08/21/24 20:44 Consult to Gastroenterology Routine Consulting Provider: Greg Galvez Reason for consultation: +fobt, anemia Has provider been notified: No [facility] Neela Fitzgerald DS: Diagnosis Discharge Diagnosis (1) Alcohol use disorder: Status: Acute (2) History of GI bleed: Status: Acute (3) Hyperkalemia: Status: Acute (4) Symptomatic anemia: Status: Acute (5) Acute on chronic blood loss anemia: Status: Acute DS: Summary Hospital Course Hospital Course: Chief Complaint: SOB, lightheaded Patient is an 83-year-old male with a past medical history significant for gout, history GI bleed, hypertension, moderate persistent asthma, CAD with KAROLINA 12/25, HFrEF, type 2 diabetes, PAD, HLD and CKD 3, who presented to the ED due to shortness of breath and lightheadedness for the past month. He saw his PCP and they referred him to the ED for a blood transfusion due to anemia. Patient has a history of a GI bleed with findings of gastritis on his endoscopy in 2022. At that time he had a colonoscopy which showed nonbleeding internal hemorrhoids as well. The patient denies any chest pain, nausea, vomiting, abdominal pain, melena or hematochezia. He reports that he is already feeling better since arriving to the ED. Hospital course: Pt admitted for acute symptomatic anemia secondary to occult GI bleed. Denied any melena or hematochezia. No hematemesis. DAPT held and tranfused 1 unit PRBC 08/22. No recurrence of dyspnea or lightheadedness. EGD performed by Dr. Avendano 08/22 normal except small hiatal hernia. Recommended to resume DAPT with stable H/H noted morning of discharge. Repeat H/H ordered to ensure stability which was 9.2/26/2%. Continue ppi and iron supplement. Follow up with GI on discharge. Acute Hyperkalemia, likely secondary to GI bleed resolved post Lokelma 10 g in ED, resolved Alcohol use disorder patient reports 2 alcoholic beverages daily, counseled no evidence of withdrawal CKD 3 creatinine at baseline HTN continued on home meds Type 2 diabetes controlled, managed with lispo. Continue diabetic diet Moderate persistent asthma, no acute exacerbation continue maintenance inhalers, albuterol prn CAD plavix and ASA initially held, resumed following egd per gi Follow up with burlap roll coverer to see if DAPT is still advised or if ASA alone is appropriate continue statin and imdur Gout continue allopurinol HFrEF, no acute exacerbation continue farxiga and carvedilol per cardiology notes, echo 07/25 with EF of 25-30% Time Attestation Discharge Coordination Time (in mins): 35 Quality: Safe Use of Opioids Does Pt have an Active Cancer Diagnosis on the Problem List?: No Quality: Stroke Does the patient have a stroke diagnosis?: No Physical Exam Vital Signs: Vital Signs: Last Vital Signs Temp 98.1 F 08/23/24 11:23 Pulse 65 08/23/24 11:23 Resp 18 08/23/24 11:23 BP 145/65 H 08/23/24 11:23 Pulse Ox 96 08/23/24 11:23 O2 Del Method Room Air 08/23/24 11:23 O2 Flow Rate 6 08/22/24 15:00 BMI result Body Mass Index 23.5 DS: Data Data Completed and Pending Completed studies during hospitalization [Text1]: Procedures Excision of Duodenum, Via Natural or Artificial Opening Endoscopic, Diagnostic (01/20/23) Inspection of Lower Intestinal Tract, Via Natural or Artificial Opening Endoscopic (01/20/23) Transfusion of Nonautologous Red Blood Cells into Peripheral Vein, Percutaneous Approach (01/20/23) Labs on day of discharge: Laboratory Results - last 24 hr 08/21/24 08/22/24 08/22/24 15:42 13:24 16:36 WBC RBC Hgb Hct MCV MCH MCHC RDW Plt Count MPV Immature Gran % (Auto) Neut % (Auto) Lymph % (Auto) [place] % (Auto) Eos % (Auto) Baso % (Auto) Lymph # (Auto) [place] # (Auto) Eos # (Auto) Baso # (Auto) Abs Immat Gran (auto) Absolute Neuts (auto) Absolute Nucleated RBC Nucleated RBC % (auto) Smear Path Review SEE NOTE Sodium Potassium Chloride Carbon Dioxide Anion Gap BUN Creatinine Estim Creat Clear Calc Estimated GFR POC Glucose 122 H 120 H Random Glucose Fasting Glucose Calcium 08/22/24 08/23/24 08/23/24 20:30 06:29 07:02 WBC 4.9 RBC 3.07 L Hgb 8.4 L Hct 24.1 L MCV 78.5 L MCH 27.4 MCHC 34.9 RDW 15.8 Plt Count 136 L MPV 10.2 Immature Gran % (Auto) 0.2 Neut % (Auto) 52.0 Lymph % (Auto) 33.1 [place] % (Auto) 10.0 Eos % (Auto) 4.1 H Baso % (Auto) 0.6 Lymph # (Auto) 1.6 [place] # (Auto) 0.5 Eos # (Auto) 0.2 Baso # (Auto) 0.0 Abs Immat Gran (auto) 0.01 Absolute Neuts (auto) 2.6 Absolute Nucleated RBC 0.000 Nucleated RBC % (auto) 0.0 Smear Path Review Sodium 139 Potassium 3.8 Chloride 110 H Carbon Dioxide 23 Anion Gap 10 L BUN 11 Creatinine 1.35 Estim Creat Clear Calc 47.6 Estimated GFR 51 POC Glucose 166 H 137 H Random Glucose 133 H Fasting Glucose 133 H Calcium 8.3 L 08/23/24 11:23 WBC RBC Hgb Hct MCV MCH MCHC RDW Plt Count MPV Immature Gran % (Auto) Neut % (Auto) Lymph % (Auto) [place] % (Auto) Eos % (Auto) Baso % (Auto) Lymph # (Auto) [place] # (Auto) Eos # (Auto) Baso # (Auto) Abs Immat Gran (auto) Absolute Neuts (auto) Absolute Nucleated RBC Nucleated RBC % (auto) Smear Path Review Sodium Potassium Chloride Carbon Dioxide Anion Gap BUN Creatinine Estim Creat Clear Calc Estimated GFR POC Glucose 159 H Random Glucose Fasting Glucose Calcium Discharge Plan Discharge Anticipated Discharge Date/Time: 08/23/24 13:48 Patient Disposition: Home, Self-Care Discharge Diagnosis: Acute blood loss anemia, occult GI bleed Referrals: Grace Velez MD [Primary Care Provider, Internal Medicine] - 1 Week Moris Levin MD [Physician, Gastroenterology] - 1 Week Discharge Medications: New omeprazole 40 mg capsule,delayed release(DR/EC) 40 mg PO DAILY Qty: 90 1RF Continued allopurinol 100 mg tablet 100 mg PO BID pravastatin 20 mg tablet 20 mg PO DAILY albuterol sulfate 90 mcg/actuation HFA aerosol inhaler 2 puff inhalation Q4H PRN (Reason: wheezing) aspirin 81 mg Tablet,Delayed Release (Dr/Ec) 81 mg PO DAILY clopidogrel [Plavix] 75 mg tablet 75 mg PO DAILY Qty: 30 0RF amiodarone 200 mg tablet 200 mg PO DAILY carvedilol 3.125 mg tablet 6.25 mg PO BID Protocol: Hold for SBP/HR < HOLD for SBP < : 100 HOLD for HR < : 55 Rx Instructions: TAKE 2 TABLETS BY MOUTH TWICE DAILY. PLEASE HOLD FOR BLOOD PRESSURE SYSTOLIC LESS THEN 100 AND HR LESS THAN 55 isosorbide mononitrate 60 mg tablet extended release 24 hr 60 mg PO DAILY losartan 25 mg tablet 25 mg PO DAILY dapagliflozin propanediol [Farxiga] 10 mg tablet 10 mg PO DAILY multivitamin Tablet 1 tab PO DAILY ferrous fumarate 324 mg (106 mg iron) Tablet 324 mg PO DAILY tamsulosin 0.4 mg capsule 0.4 mg PO BEDTIME umeclidinium-vilanterol [Anoro Ellipta] 62.5-25 mcg/actuation Blister With Device 1 inh INHALATION DAILY Discharge Orders: Discharge Order (Routine); Ordered 08/23/24 Ordered By: Neela Fitzgerald Diet: Advance to usual diet Activity on Discharge: As tolerated Stand Alone Forms: Patient Portal Discharge page Print Language: Tajik Care Plan Goals: Follow up with GI Continue iron supplement and resume omeprazole Health Concerns: Possible occult GI bleed Acute symptomatic blood loss anemia Plan of Treatment: Endoscopy negative for evidence of bleeding. Follow up with GI for possible capsule endoscopy. May resume aspirin and plavix but also take iron supplement and omeprazole. Follow up with cardiology to see if both aspiring and plavix are needed, or if aspirin alone would be sufficient. Assessment: Acute symptomatic anemia possibly due to occult gi bleed from chronic asa/plavix use. See above. See discharge summary
[2024-08-23] MEDS: Insulin Lispro 100 UNIT/ML 3 ML VIAL SUBCUT (12:23)
[2024-08-23 12:30] LABS: Hematocrit 26.2 % (42.0-52.0); Hemoglobin 9.2 g/dl (14.0-18.0)
--- NOTE | 2024-08-23 22:28 | HO.POSTANES ---
Post Anesthesia Evaluation Post Anesthesia Evaluation Date of Service: 08/23/24 Vital Signs: Vital Signs Temp Pulse Resp BP Pulse Ox O2 Del Method 08/23/24 11:23 98.1 F 65 18 145/65 H 96 Room Air Anesthesia: Monitored Mental Status: Awake Pain Control: Satisfactory Nausea/Vomiting: None Hydration: Adequate Anesthesia-Related Issues: No Anes. Related Issues
== END 2024-08-23 15:53 | disposition home or self-care (01) | DRG 378 ==
LOC: HO.ED 17:58 → HO.EDOVER 20:59 → HO.IMC 08-22 15:56
PROVIDERS: Internal Medicine; Physician Assistant Medical; Student in an Organized Health Care Education/Training Program; Admitting Provider Physician Assistant; Emergency Provider Internal Medicine; PCP Internal Medicine; Visit Provider Physician Assistant
PROC: 0DJ08ZZ Inspection of Upper Intestinal Tract, Via Natural or Artificial Opening Endoscopic (ICD-10-PCS; CPT 43235; principal; 2024-08-22 14:30)
DX: K92.2 Gastrointestinal hemorrhage, unspecified (principal); D62 Acute posthemorrhagic anemia; I13.0 Hypertensive heart and chronic kidney disease with heart failure and stage 1 through stage 4 chronic kidney disease, or unspecified chronic kidney disease; I50.22 Chronic systolic (congestive) heart failure; N18.30 Chronic kidney disease, stage 3 unspecified; E11.22 Type 2 diabetes mellitus with diabetic chronic kidney disease; D63.1 Anemia in chronic kidney disease; Z66 Do not resuscitate; E87.5 Hyperkalemia; K44.9 Diaphragmatic hernia without obstruction or gangrene; K22.2 Esophageal obstruction; J45.40 Moderate persistent asthma, uncomplicated; M10.9 Gout, unspecified; F10.90 Alcohol use, unspecified, uncomplicated; I25.10 Atherosclerotic heart disease of native coronary artery without angina pectoris; Z95.0 Presence of cardiac pacemaker; Z79.02 Long term (current) use of antithrombotics/antiplatelets; Z79.82 Long term (current) use of aspirin; Z79.899 Other long term (current) drug therapy
CPT/HCPCS: 36415; 71046; 74176; 80048; 80053; 82272; 82947; 83540; 83735; 83880; 84484; 85014; 85018; 85025; 86850; 86900; 86901; 86923; 93005; 99285; J2470; J2704; P9016

== ENCOUNTER → 2024-08-21 15:16 | Outpatient (BNV) | payer MEDICARE, OTHER, SELFPAY | PROVIDERS: Admitting Provider Physician Assistant; Emergency Provider Internal Medicine; PCP Internal Medicine; Visit Provider Internal Medicine Cardiovascular Disease | DX: I51.7 Cardiomegaly (principal) | CPT/HCPCS: 93010 ==

== ENCOUNTER → 2024-08-21 15:16 | Outpatient (BNV) | payer MEDICARE, OTHER, SELFPAY | PROVIDERS: Visit Provider Radiology Diagnostic Radiology | DX: D64.9 Anemia, unspecified (principal); R06.02 Shortness of breath | CPT/HCPCS: 71046 ==

== ENCOUNTER → 2024-08-21 20:04 | Outpatient (BNV) | payer MEDICARE, OTHER, SELFPAY | PROVIDERS: Admitting Provider Physician Assistant; Emergency Provider Internal Medicine; PCP Internal Medicine; Visit Provider Physician Assistant | DX: F10.90 Alcohol use, unspecified, uncomplicated (principal); Z87.19 Personal history of other diseases of the digestive system; E87.5 Hyperkalemia; D64.9 Anemia, unspecified; D62 Acute posthemorrhagic anemia | CPT/HCPCS: 99223; 99233; 99239 ==